=== PATIENT | female | born 1930 | race Caucasian/White ===

== ENCOUNTER 2017-10-24 11:50 | Outpatient (CLI) | payer MEDICARE, OTHER | END 2017-10-24 11:51 | disposition home or self-care (01) | LOC: BICMAMMO 11:50 | PROVIDERS: ATTEND Family Medicine | DX: Z12.31 Encounter for screening mammogram for malignant neoplasm of breast (principal); Z80.3 Family history of malignant neoplasm of breast | CPT/HCPCS: 77063 ==

== ENCOUNTER 2018-02-16 10:46 | Outpatient (CLI) | payer MEDICARE, OTHER ==
--- NOTE | 2018-02-16 14:18 | ULT ---
COMPLETE ABDOMEN ULTRASOUND: INDICATIONS: Epigastric abdominal pain and gas. COMPARISON: CT abdomen and pelvis dated 02/11/2010. FINDINGS: There is a 7.5 cm cyst involving the posterior right hepatic lobe, which is stable to the prior exam. The gallbladder demonstrates multiple nonshadowing, echogenic, nonmobile foci within the lumen, suspi cious for multiple polyps. One of the most prominent is seen off the anterior wall of the gallbladde r body, measuring 7 mm. The common bile duct measures 5 mm. No sonographic Dickinson sign is reported. The right kidney measures 8.3 x 4.4 x 4.7 cm. The left kidney measures 9.2 x 6.3 x 4.9 cm. The visualized aspects of the pancreas are unremarkable. IMPRESSION: 1. Multiple small polyps suspected involving the gallbladder. One of the more prominent is seen jr suring 7 mm, along the anterior gallbladder wall. Some of the suspected polyps could also be reflect ehsan of adherent debris. There is no sonographic evidence of acute cholecystitis. With the prominenc e of the gallbladder polyps, would recommend a general surgery consultation for possible elective cho lecystectomy. 2. Stable right hepatic lobe. POS: [facility]
== END 2018-02-16 10:47 | disposition home or self-care (01) ==
LOC: ULT 10:46
PROVIDERS: ATTEND Family Medicine
DX: R10.13 Epigastric pain (principal)
CPT/HCPCS: 76700

== ENCOUNTER 2018-03-07 10:31 | Inpatient (IN) | payer MEDICARE, OTHER ==
[2018-03-06 13:07] VITALS: BMI 25.8
[2018-03-07] MEDS ORDERED: Ketorolac Tromethamine 30 MG/ML VIAL IVP PRN ×2 (12:08)
[2018-03-07] MEDS ORDERED: Promethazine HCl 25 MG/ML VIAL SLOW IVP PRN ×2 (12:08)
[2018-03-07] MEDS ORDERED: Ondansetron HCl/PF 4 MG/2 ML Vial IVP PRN ×3 (12:08→16:19)
[2018-03-07] MEDS ORDERED: Promethazine HCl 25 MG/ML VIAL ONE (12:38)
[2018-03-07] MEDS ORDERED: Pantoprazole 40 MG VIAL IVP SCH ×2 (14:15)
[2018-03-07 15:11] LABS: #Eosinphils 0.4 thou/uL (0.0-0.7); #Lymphocytes 1.4 thou/uL (1.20-3.40); #Monocytes 0.6 thou/uL (0.11-0.59); #Neutrophils 2.8 thou/uL (1.40-6.50); %Basophils 0.8 % (0.0-1.0); %Eosinophils 8.5 % (0.0-10.0); %Neutrophils 53.7 % (42.0-75.0); Hemoglobin 11.6 g/dL (12.0-16.0); Mean Corpuscular Hemoglobin 33.7 pg (27.0-31.0); Mean Platelet Volume 6.9 fL (7.4-10.4); Platelet Count 251 thou/uL (130-400); RBC Distribution Width 14.8 % (11.5-14.5); Red Blood Cell (RBC) Count 3.44 mill/uL (4.20-5.40); White Blood Cell (WBC) Count 5.2 thou/uL (4.8-10.8)
[2018-03-07 15:28] LABS: ALT (SGPT) 20 U/L (8-55); AST (SGOT) 23 U/L (5-34); Albumin 2.9 g/dL (3.4-4.8); Alkaline Phosphatase 54 U/L (40-150); Anion Gap 8 mmol/L (10-20); BUN (Urea Nitrogen) 20 mg/dL (9.8-20.1); Bilirubin, Total 0.3 mg/dL (0.2-1.2); Calc. Creatinine Clearance 66 mL/min (70-130); Calcium 8.7 mg/dL (7.8-10.44); Carbon Dioxide 27 mmol/L (23-31); Chloride 109 mmol/L (98-107); Estimated GFR-MDRD 75; Globulin 2.4 g/dL (2.4-3.5); Glucose 94 mg/dL (83-110); Potassium 3.8 mmol/L (3.5-5.1); Protein, Total 5.3 g/dL (6.0-8.3); Sodium 140 mmol/L (136-145)
[2018-03-07] MEDS ORDERED: ISOVUE-370 76%-LOCM 1 ML ONE (16:11)
[2018-03-07] MEDS ORDERED: Milk Of Magnesia 30 ML UDCUP PO PRN (16:19)
[2018-03-07] MEDS ORDERED: HYDROcodone/Acetaminophen 5/325 mg Tablet PO PRN (16:19)
[2018-03-07] MEDS ORDERED: Acetaminophen 325 MG TAB PO PRN (16:19)
[2018-03-07] MEDS: Sodium Chloride 0.9% 1,000 ML IV SCH (16:54)
[2018-03-07] MEDS ORDERED: PROPOFOL 200 MG/20 ML VIAL ONE (16:56)
[2018-03-07] MEDS ORDERED: Lidocaine 1% PF 5 ML VIAL ONE (16:56)
--- NOTE | 2018-03-07 17:17 | HP ---
DATE OF ADMISSION: 03/07/2018 CHIEF COMPLAINT: Gassy abdomen. HISTORY OF PRESENT ILLNESS: This is an 87-year-old elderly white female living with her in h usual state of health, but for the past 3 months she has been suffering with a gassy distention of her abdomen associated with large gas, belching and nausea. She initially went to her primary care physician who started her on Zantac which did relieve her abdominal pain a little bit and gas was als o relieved. But since her appetite was getting worse and she is getting more and more nauseous with bloated abdomen, she went back to her primary care physician who at this time thought it could be gal lbladder disease so he ordered an ultrasound of the abdomen which showed evidence of a possible mass in the abdomen, also possible gastric outlet obstruction. He referred the patient to Gastroenterolog y, Dr. Andersen who decided to scope the patient today. When patient had an EGD, there was an evidenc e of a mass in the gastric mucosa which was biopsied and patient was admitted for further evaluation. The patient was ordered a CT of the abdomen and pelvis and Hospitalist was asked to admit this maria alejandra ent for further monitoring. The patient was seen in the floor. She was alert and oriented, not appe ars to be in acute distress. Discussed with the daughter at the bedside. She denied having any ches t pain. She does have some nausea, but no vomiting, no diarrhea. She does have constipation. The l ast bowel movement was 2 days ago. 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 PAST MEDICAL HISTORY: 1. Hypertension. 2. Hypothyroidism secondary to thyroidectomy. 3. History of parotid gland cancer. PAST SURGICAL HISTORY: 1. Parotid gland removal. 2. Thyroidectomy. 3. Cataract removal and glaucoma surgery. SOCIAL HISTORY: The patient is a nonsmoker. No history of alcohol, no history of illicit drug use. She lives with her at home. Otherwise, in good health and she is pretty independent. FAMILY HISTORY: The patient has significant family history of cancers in the family, her sister and her niece, but none of them are gastrointestinal according to her, which is more of leukemia the fami ly history she has. REVIEW OF SYSTEMS: All 12 systems reviewed with the patient thoroughly and found to be negative at t his time except the ones described in HPI. The following complete review of systems was negative, un less otherwise mentioned in the HPI or below: Constitutional: Weight loss or gain, sense of well-being, ability to conduct usual activities, exerc ise tolerance. Skin/Breast: Rash, itching, changes in hair growth or loss, nail changes, breast lumps, tenderness, swelling, nipple discharge. Eyes: Vision, double vision, tearing, blind spots, pain. ENT/Mouth: Headaches (location, time of onset, duration, precipitating factors), vertigo, lightheade dness, injury. Vision, double vision, tearing, blind spots, pain, nose bleeding, colds, obstruction, discharge, dental difficulties, gingival bleeding, dentures, neck stiffness, pain, tenderness, masses in thyroid or other areas Cardiovascular: Precordial pain, substernal distress, palpitations, syncope, dyspnea on exertion, or thopnea, nocturnal paroxysmal dyspnea, edema, cyanosis, hypertension, heart murmurs, varicosities, ph lebitis, claudication. Respiratory: Pain, shortness of breath, wheezing, stridor, cough, hemoptysis, fever or night sweats Gastrointestinal: Poor appetite, dysphagia, indigestion, abdominal pain, heartburn, eructation, naus ea, vomiting, hematemesis, jaundice, constipation, or diarrhea, abnormal stools (carlos alberto-colored, tarry, bloody, greasy, foul smelling), flatulence, hemorrhoids, recent changes in bowel habits. Genitourinary: Urgency, frequency, dysuria, nocturia, hematuria, polyuria, oliguria, unusual (or roque nge in) color of urine, stones, hesitancy, change in size of stream, dribbling, acute retention or in continence, libido, potency. Musculoskeletal: Pain, swelling, redness or heat of muscles or joints, limitation, of motion, muscul ar weakness, atrophy, cramps. Neurologic/Psychiatric: Convulsions, paralyses, tremor, incoordination, paraesthesias, difficulties with memory of speech, sensory or motor disturbances, or muscular coordination (ataxia, tremor), emot ional problems, anxiety, depression, previous psychiatric care, unusual perceptions, hallucinations. Allergy/Immunologic: Skin rash, anemia, bleeding tendency, polydipsia, polyuria, intolerance to heat or cold. ALLERGIES: No known drug allergies. HOME MEDICATIONS: Cholecalciferol, aspirin 81 mg p.o. daily, amlodipine/benazepril 5/10 mg tablet da ariana, atenolol 50 mg p.o. daily, atorvastatin 10 mg p.o. daily, levothyroxine 112 mcg daily, ranitidin e 150 mg p.o. b.i.d. and multivitamin. PHYSICAL EXAMINATION: VITAL SIGNS: Blood pressure 163/79, heart rate is 60, respirations 18, saturation 99%. GENERAL: The patient is moderately built, moderately nourished, does not appears to be in acute dist ress at this time. She is alert and oriented x3. HEENT: Atraumatic, normocephalic, PERRLA. Extraocular movement intact. Oral mucosa is pink and megan st. CARDIOVASCULAR: S1, S2 normal. No murmurs, rubs or gallops. LUNGS: Bilateral air entry was equal. No wheezing, no crackles. ABDOMEN: Soft, nontender, no guarding, no rebound tenderness. Bowel sounds are normal. MUSCULOSKELETAL: No calf tenderness. No pedal edema. No tenderness. No joint swelling. SKIN: No cyanosis, no erythema, no rash, no pallor. CENTRAL NERVOUS SYSTEM: Cranial nerve examination II-XII intact. No focal deficits are noted. PSYCHIATRIC: No signs of suicidal ideation and no signs of cari. NECK: No thyromegaly, no lymphadenopathy, no JVD was noted. LYMPHATICS: No evidence of any generalized lymphadenopathy was noted. LABORATORY DATA: Sodium 140, potassium 3.8, chloride 109, bicarbonate is 27, BUN is 20, creatinine 0 .73. Carcinoembryonic antigen is 1.0. WBC 5.2, hemoglobin 11.6, hematocrit 35.2, platelets are 251. ASSESSMENT AND PLAN: 1. Acute gastric outlet obstruction. 2. Dyspepsia. 3. Moderate dehydration. 4. Uncontrolled hypertension. 5. Hyperlipidemia. 6. Gastroesophageal reflux disease. PLAN: 1. Plan is to closely monitor this patient and follow with GI recommendations. At this time, we abigail l wait for the biopsies to be back. The patient has suspicion for GI malignancy. We will wait for C T of the abdomen and pelvis today. 2. Carcinoembryonic antigen was normal. 3. Patient has moderate dehydration. We will start the patient on normal saline 100 mL hour. We wi ll closely monitor for good urine output. 4. The patient has history of hypertension, poorly controlled at this time. We will restart the pat ient's home medications. Most likely the blood pressures could be related to anxiety from unknown di agnosis at this time. 5. The patient has hyperlipidemia. We will restart the patient's home medications with atorvastatin . 6. The patient has hypothyroidism. We will restart the patient on home medications. 7. Deep venous thrombosis prophylaxis, Lovenox 40 mg subcu daily. I spent 75 minutes on this patient.
--- NOTE | 2018-03-07 18:30 | CT ---
ABDOMEN AND PELVIC CT SCAN WITH IV CONTRAST: 03/07/18 HISTORY: 87-year-old female with history of abdominal pain for the last three months with history of gastric m ass. There is some linear parenchymal changes in the posterior lung bases, evidence for some subsegme ntal atelectasis or positional change. Multiple liver cysts up to 7.2 cm in the right lobe, stable fr om prior 02/11/10 study. There is a large constricting mass in the antrum of the stomach with marked gastric wall thickening u p to 1.7 cm. Certainly malignancy must be excluded. The gallbladder, pancreas and spleen appear unrem arkable. Stable left adrenal adenoma and right adrenal fullness unchanged from the prior study. 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 Small bilateral renal cysts, No evidence for significant omar nopathy. There is one borderline sized aortocaval node up to 0.6 cm in short axis. A normal appearing appendix. Sigmoid colon diverticulosis without acute diverticulitis. Small amount of cul-de-sac flui d. IMPRESSION: Gastric antral mass with marked wall thickening, malignancy cannot be excluded. Stable liver cysts wi th stable appearing adrenal adenoma and right kidney angiomyolipoma with small bilateral renal cysts. One borderline sized aortocaval node with a short axis of approximately 0.6 cm. POS: [facility]
--- NOTE | 2018-03-07 19:29 | OP ---
PREPROCEDURE DIAGNOSES: 1. Several months of epigastric pressure discomfort. She describes as gas after eating with mild an emia of hemoglobin 10, positive H. pylori, early satiety, anorexia. 2. She has had a gallbladder ultrasound that showed some 7 mm nodules in the gallbladder. POSTPROCEDURE DIAGNOSES: 1. Normal esophagus. 2. Mild amount of retained gastric contents. 3. Infiltrating mass in the antrum with partial gastric outlet obstruction. Multiple biopsies obtai abdoul sent for regular histology as well as specimen sent in saline in case lymphoma markers are needed . 4. The duodenal bulb is normal beyond the mass as is the second and third part of the duodenum. 5. Retroflex views show mass encroaching on the lesser curve. RECOMMENDATIONS: Admission to the hospital, CAT scan evaluation. She is not eating well and continu es to lose weight. Await histopathology. Consider oncologic and surgical consults once pathology and CAT scan obtained. ANESTHESIA: TIVA. PROCEDURE IN DETAIL: The patient was informed of the risks, benefits, possible complications of endo scopy and perforation, bleeding, reaction to medication and aspiration, informed consent was obtained . The patient was brought to endoscopy suite where she was sedated in gradual fashion. Once she was comfortable, a bite block was placed in incisural orifice. The esophagus was normal. The stomach w as entered and found to have a little bit of retained content. This was suctioned away to the best o f our ability. Retroflexed views revealed normal GE junction ____. Forward views of the antrum was distorted with infiltrating like mass with some ulceration causing partial gastric outlet obstruction , deformation of the prepyloric antrum. Multiple biopsies were obtained, this is somewhat friable an d sent for both a regular histology and also lymphoma markers. The duodenal bulb was normal. Bringi ng the scope back it seems to advance on the gastric wall up along to the lesser curve in incisural r egion. The scope was removed. The patient tolerated the procedure well and no complications.
[2018-03-07] MEDS ORDERED: Non-Formulary Item 1 EACH (Ranitidine Hcl [Ranitidine Hcl] 150 MG) PO SCH ×2 (21:00)
[2018-03-07] MEDS: Docusate 100 MG CAP PO SCH (21:45)
[2018-03-07] MEDS: Famotidine 20 MG TAB PO SCH (21:45)
[2018-03-08] MEDS: Sodium Chloride 0.9% 1,000 ML IV SCH ×2 (02:50→12:32)
[2018-03-08 04:23] LABS: #Basophils 0.1 thou/uL (0.0-0.2); #Eosinphils 0.6 thou/uL (0.0-0.7); #Lymphocytes 1.5 thou/uL (1.20-3.40); #Monocytes 0.7 thou/uL (0.11-0.59); #Neutrophils 2.6 thou/uL (1.40-6.50); %Basophils 1.2 % (0.0-1.0); %Eosinophils 10.3 % (0.0-10.0); %Lymphocytes 26.9 % (21.0-51.0); %Monocytes 13.1 % (0.0-10.0); %Neutrophils 48.4 % (42.0-75.0); Hemoglobin 10.1 g/dL (12.0-16.0); Mean Corpuscular HGB CONC 33.9 g/dL (32.0-36.0); Mean Corpuscular Hemoglobin 34.6 pg (27.0-31.0); Platelet Count 232 thou/uL (130-400); RBC Distribution Width 14.8 % (11.5-14.5); Red Blood Cell (RBC) Count 2.91 mill/uL (4.20-5.40); White Blood Cell (WBC) Count 5.4 thou/uL (4.8-10.8)
[2018-03-08 04:34] LABS: Anion Gap 6 mmol/L (10-20); BUN (Urea Nitrogen) 15 mg/dL (9.8-20.1); Calc. Creatinine Clearance 68 mL/min (70-130); Calcium 8.3 mg/dL (7.8-10.44); Carbon Dioxide 26 mmol/L (23-31); Chloride 110 mmol/L (98-107); Estimated GFR-MDRD 80; Glucose 100 mg/dL (83-110); Potassium 3.6 mmol/L (3.5-5.1); Sodium 138 mmol/L (136-145)
[2018-03-08] MEDS ORDERED: Levothyroxine Sodium 112 MCG TAB PO SCH (06:00)
[2018-03-08] MEDS ORDERED: Atorvastatin Calcium 10 MG TAB PO SCH (09:00)
[2018-03-08] MEDS ORDERED: Enoxaparin Sodium 40 MG/0.4 ML SYRINGE SC SCH (09:00)
[2018-03-08] MEDS ORDERED: Multivitamin W/ Minerals 1 TAB PO SCH (09:00)
[2018-03-08] MEDS ORDERED: Atenolol 50 MG TAB PO SCH (09:00)
[2018-03-08] MEDS ORDERED: Pantoprazole 40 MG VIAL IVP SCH ×2 (09:00)
[2018-03-08] MEDS ORDERED: Amlodipine 5 mg/Benazepril 10 mg CAP PO SCH (09:00)
[2018-03-08] MEDS: Famotidine 20 MG TAB PO SCH (09:18)
[2018-03-08] MEDS: Docusate 100 MG CAP PO SCH (09:18)
[2018-03-08 11:12] LABS: Bilirubin Negative (Negative); Blood, Urine Negative (Negative); Clarity CLEAR (Clear); Glucose, Urine (Dipstick) Negative (Negative); Leukocyte Negative (Negative); Nitrite Negative (Negative); Protein, Urine (Dipstick) Negative (Neg-Trace); Specific Gravity, Urine 1.015 (1.002-1.036)
[2018-03-08 11:15] LABS: Bacteria/HPF None Seen HPF (None Seen); Hyaline Casts/LPF 0-3 HYALINE CAST LPF (0-3 Hyaline); Pathc Cast-AUWi Flag 0.58 (0-2.49); RBC/HPF 0-3 HPF (0-3); Squamous Epithelial None Seen HPF (0-3); WBC/HPF 0-3 HPF (0-3)
[2018-03-08 12:33] VITALS: BP 142/84; TEMP 97.4
[2018-03-08 12:58] LABS: Iron 55 ug/dL (50-170); Iron Binding Capacity, Total 319 mcg/dL (265-497)
--- NOTE | 2018-03-09 02:28 | DIS ---
Ms. Issa is feeling well. She is tolerating full liquids. She wants to go home; her pathology re port is not back. Her CAT scan showed a mass in the antrum of the stomach with no obvious metastatic disease. She has been seen by General Surgery and is awaiting pathology results. PHYSICAL EXAMINATION: VITAL SIGNS: Stable. GENERAL: Alert and oriented. ABDOMEN: Nontender. LABORATORY DATA: 1. Gastric antral mass on endoscopy, concerning for malignancy, biopsies obtained, lymphoma markers sent, likely causing some partial gastric outlet obstruction. As she is able to maintain hydration, she would like to go home. 2. CAT scan shows above-noted thickening of the antral wall. There was also 1 borderline-sized aort ocaval lymph node, short axis, of 0.6 cm. Pathology on the biopsies pending. 3. Electrolytes are normal. 4. Hemoglobin is stable at 10.1. ASSESSMENT: Gastric antral tumor mass, pathology pending, and it is causing partial gastric outlet o bstruction. PLAN: She will go home to follow up on the pathology. Based on these results, we would likely refer to Oncology. Her daughters understand this. We will hopefully have the biopsies back tomorrow. I offered further stay here and to complete workup for possible preoperative evaluation as well, but toñito rogel wants to go home. I recommend she use Ensure t.i.d. Continue on a PPI. I have her phone number t o call her once we get the biopsies back.
--- NOTE | 2018-03-09 07:40 | PDOC.PN ---
- Subjective Encounter Start Date: 03/08/18 Encounter Start Time: 15:00 Patient is seen today, alert and oriented. She is waiting for GI to see her for further plans. She is alert and oriented. Wants to go home. - Objective Resuscitation Status: Resuscitation Status FULL:Full Resuscitation MAR Reviewed: Yes Vital Signs & Weight: Weight Weight 165 lb I&O: 03/08/18 03/09/18 03/10/18 06:59 06:59 06:59 Intake Total 610 Balance 610 Result Diagrams: 03/08/18 03:15 03/08/18 03:15 Radiology Reviewed by me: Yes Phys Exam - Physical Examination HEENT: PERRLA, moist MMs Neck: no nodes, no JVD Respiratory: no wheezing, no rales Cardiovascular: RRR, no significant murmur Gastrointestinal: soft, non-tender Musculoskeletal: no edema, pulses present Neurological: non-focal, normal sensation Lymphatic: no nodes Dx/Plan (1) Intractable nausea and vomiting Code(s): R11.2 - NAUSEA WITH VOMITING, UNSPECIFIED Status: Acute Comment: Resolved now, with zofran. (2) Dehydration, moderate Code(s): E86.0 - DEHYDRATION Status: Acute Comment: Pt is on IV hydation.Stbale. Well hydrated now. (3) Gastric mass Code(s): K31.9 - DISEASE OF STOMACH AND DUODENUM, UNSPECIFIED Status: Acute Comment: CT abdomen showed no invasion to Liver or intraabominal extension of tumors. rest of the plan per GI, pending Biopsy. - Plan cont current plan of care, plan discussed w/ family, PT/OT, [employer] and crm, incentive spirometry, DVT proph w/heparin * . - Discharge Day Encounter end time: 15:35 Review of Systems - Review of Systems Eyes: negative: Pain, Vision Change, Conjunctivae Inflammation, Eyelid Inflammation, Redness, Other ENT: negative: Ear Pain, Ear Discharge, Nose Pain, Nose Discharge, Nose Congestion, Mouth Pain, Mouth Swelling, Throat Pain, Throat Swelling, Other Respiratory: negative: Cough, Dry, Shortness of Breath, Hemoptysis, SOB with Excertion, Pleuritic Pain, Sputum, Wheezing Cardiovascular: negative: chest pain, palpitations, orthopnea, paroxysmal nocturnal dyspnea, edema, light headedness, other Gastrointestinal: negative: Nausea, Vomiting, Abdominal Pain, Diarrhea, Constipation, Melena, Hematochezia, Other Genitourinary: negative: Dysuria, Frequency, Incontinence, Hematuria, Retention , Other Musculoskeletal: negative: Neck Pain, Shoulder Pain, Arm Pain, Back Pain, Hand Pain, Leg Pain, Foot Pain, Other Skin: negative: Rash, Lesions, Paulie, Bruising, Other - Medications/Allergies Allergies/Adverse Reactions: Allergies Allergy/AdvReac Type Severity Reaction Status Date / Time No Known Allergies Allergy Unverified 03/06/18 13:07
== END 2018-03-08 15:30 | disposition home or self-care (01) | DRG 382 ==
LOC: SDC 10:31 → SURG A 14:02
PROVIDERS: ADMIT Internal Medicine Gastroenterology; ATTEND Internal Medicine Gastroenterology
PROC: 0DB78ZX Excision of Stomach, Pylorus, Via Natural or Artificial Opening Endoscopic, Diagnostic (ICD-10-PCS; principal; 2018-03-07)
DX: K31.1 Adult hypertrophic pyloric stenosis (principal); E86.0 Dehydration; E03.9 Hypothyroidism, unspecified; I10 Essential (primary) hypertension; Z85.89 Personal history of malignant neoplasm of other organs and systems; Z79.82 Long term (current) use of aspirin; E78.5 Hyperlipidemia, unspecified; K21.9 Gastro-esophageal reflux disease without esophagitis; E78.00 Pure hypercholesterolemia, unspecified
CPT/HCPCS: 36415; 74177; 80048; 80053; 81001; 82274; 82378; 83540; 83550; 85025; 88184; 88305; 88341; 88342; C9113; J1650; J2001; J2550; J2704

== ENCOUNTER 2018-03-23 07:27 | Outpatient (CLI) | payer MEDICARE, OTHER ==
--- NOTE | 2018-03-23 10:45 | PET ---
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 COMPARISON: None. TECHNIQUE: IV injection F-18 Fluorodeoxyglucose (FDG) dose: 11.9 mCi. PET and attenuation-correction CT performed from skull base to proximal thighs. FINDINGS: SUV (standard uptake value) numbers given are maximum SUV's: Circumferential mural thickening of the gastric antrum has diffusely increased uptake with SUV of 14. 1. No evidence of FDG-avid lymph nodes in the abdominal cavity. The 0.6 cm aortocaval lymph node ment ioned on the report of the CT of 03/07/18 is not FDG-avid. No abnormally FDG-avid lesions in the pelv is, chest, or neck. Large right hepatic cyst. Left adrenal adenoma. IMPRESSION: The gastric adenocarcinoma involves the gastric antrum, with no invasion of adjacent structures, meta static lymphadenopathy, or distant metastasis. From an imaging standpoint, the T component could rang e from T1a to T3, N0, M0; Stage IIA or IIB. ARTIS Howe POS: [facility]
== END 2018-03-23 07:28 | disposition home or self-care (01) ==
LOC: PET 07:27
PROVIDERS: ATTEND Internal Medicine Hematology & Oncology
DX: C16.9 Malignant neoplasm of stomach, unspecified (principal); C16.3 Malignant neoplasm of pyloric antrum; R59.1 Generalized enlarged lymph nodes
CPT/HCPCS: 78815; A9552

== ENCOUNTER 2018-03-29 10:28 | Outpatient (CLI) | payer MEDICARE, OTHER ==
[2018-03-29 11:02] LABS: #Basophils 0.1 thou/uL (0.0-0.2); #Eosinphils 0.5 thou/uL (0.0-0.7); #Lymphocytes 1.4 thou/uL (1.20-3.40); #Monocytes 0.7 thou/uL (0.11-0.59); %Lymphocytes 21.7 % (21.0-51.0); %Monocytes 10.4 % (0.0-10.0); %Neutrophils 59.9 % (42.0-75.0); Hemoglobin 11.5 g/dL (12.0-16.0); Mean Corpuscular Hemoglobin 34.7 pg (27.0-31.0); Mean Platelet Volume 6.8 fL (7.4-10.4); Platelet Count 285 thou/uL (130-400); Red Blood Cell (RBC) Count 3.31 mill/uL (4.20-5.40); White Blood Cell (WBC) Count 6.6 thou/uL (4.8-10.8)
[2018-03-29 11:09] LABS: INR-International Normal Ratio 1.1; PTT 28.5 SEC (22.9-36.1); Prothrombin Time 14.7 SEC (12.0-14.7)
[2018-03-29 11:21] LABS: ALT (SGPT) 19 U/L (8-55); AST (SGOT) 25 U/L (5-34); Albumin 3.2 g/dL (3.4-4.8); Alkaline Phosphatase 51 U/L (40-150); Anion Gap 10 mmol/L (10-20); BUN (Urea Nitrogen) 19 mg/dL (9.8-20.1); Bilirubin, Total 0.4 mg/dL (0.2-1.2); Calc. Creatinine Clearance 0 mL/min (70-130); Calcium 8.7 mg/dL (7.8-10.44); Carbon Dioxide 27 mmol/L (23-31); Chloride 102 mmol/L (98-107); Estimated GFR-MDRD 67; Globulin 2.4 g/dL (2.4-3.5); Glucose 111 mg/dL (83-110); Potassium 4.1 mmol/L (3.5-5.1); Protein, Total 5.6 g/dL (6.0-8.3); Sodium 135 mmol/L (136-145)
== END 2018-03-29 10:29 | disposition home or self-care (01) ==
LOC: LABBT 10:28
PROVIDERS: ATTEND Internal Medicine Cardiovascular Disease
DX: Z01.818 Encounter for other preprocedural examination (principal); I35.0 Nonrheumatic aortic (valve) stenosis
CPT/HCPCS: 80053; 85025; 85610; 85730; 93005; 93010

== ENCOUNTER 2018-03-31 05:57 | Day surgery (SDC) | payer MEDICARE, OTHER ==
[2018-03-29 10:46] VITALS: BMI 24.7
[2018-03-31] MEDS ORDERED: Diazepam 5 MG TAB ONE (06:20)
[2018-03-31] MEDS ORDERED: Lidocaine 1% (PF) 30 ML VIAL ONE (06:37)
[2018-03-31] MEDS ORDERED: Iopamidol 370 76% 100 ML VIAL ONE (06:48)
== END 2018-03-31 12:50 | disposition home or self-care (01) ==
LOC: CCL 05:57
PROVIDERS: ATTEND Internal Medicine Cardiovascular Disease
PROC: 4A023N8 Measurement of Cardiac Sampling and Pressure, Bilateral, Percutaneous Approach (ICD-10-PCS; principal; 2018-03-31)
DX: I35.0 Nonrheumatic aortic (valve) stenosis (principal); I25.10 Atherosclerotic heart disease of native coronary artery without angina pectoris; E78.5 Hyperlipidemia, unspecified; I10 Essential (primary) hypertension; C16.9 Malignant neoplasm of stomach, unspecified; E89.0 Postprocedural hypothyroidism; E66.9 Obesity, unspecified; Z68.24 Body mass index [BMI] 24.0-24.9, adult
CPT/HCPCS: 76942; 93460; 93561; 93567; C1769; J1644; J2001

== ENCOUNTER 2018-05-13 18:28 | Emergency (ER) | payer MEDICARE, OTHER | END 2018-05-13 21:17 | disposition home or self-care (01) | LOC: ERS 18:28 | DX: L03.113 Cellulitis of right upper limb (principal); L03.011 Cellulitis of right finger; I10 Essential (primary) hypertension; E03.9 Hypothyroidism, unspecified; E78.5 Hyperlipidemia, unspecified; Z79.899 Other long term (current) drug therapy; Z79.82 Long term (current) use of aspirin | CPT/HCPCS: 99283 ==

== ENCOUNTER 2018-06-16 15:06 | Outpatient (CLI) | payer MEDICARE, OTHER | END 2018-06-16 15:07 | disposition home or self-care (01) | LOC: BICCT 15:06 | PROVIDERS: ATTEND Nurse Practitioner Adult Health | DX: C16.3 Malignant neoplasm of pyloric antrum (principal); M21.371 Foot drop, right foot; M47.896 Other spondylosis, lumbar region; M41.9 Scoliosis, unspecified; N28.9 Disorder of kidney and ureter, unspecified; K76.9 Liver disease, unspecified; E27.9 Disorder of adrenal gland, unspecified; K59.00 Constipation, unspecified | CPT/HCPCS: 72131 ==

== ENCOUNTER 2018-07-14 12:56 | Day surgery (SDC) | payer MEDICARE, OTHER ==
[2018-07-13 08:14] VITALS: BMI 22.8
[2018-07-14] MEDS ORDERED: Lidocaine 2% 10 ML INJ ONE (13:24)
[2018-07-14] MEDS ORDERED: Bupivacaine/Epinephrine 0.25% 30 ML VIAL ONE (13:24)
[2018-07-14] MEDS ORDERED: Fentanyl 100 MCG/2 ML VIAL ONE ×2 (13:39→15:08)
[2018-07-14] MEDS ORDERED: CEFAZOLIN/Water 2 GM/20 ML SYRINGE ONE (13:53)
--- NOTE | 2018-07-14 14:48 | OP ---
DATE OF PROCEDURE: 07/14/2018 PREOPERATIVE DIAGNOSIS: Gastric adenocarcinoma. POSTOPERATIVE DIAGNOSIS: Gastric adenocarcinoma. PROCEDURE: Tunneled central line subcutaneous port (MediPort, CT injectable low profile). SURGEON: Dr. Piña. ANESTHESIA: General. ESTIMATED BLOOD LOSS: Minimal. COMPLICATIONS: None. SPECIMEN: None. FINDINGS: The tip of the catheter is at the atriocaval junction. TECHNIQUE: The patient is taken to the operating room and placed supine on the operating room table. After general anesthetic was obtained, bilateral neck and chest is prepped and draped in a sterile fashion. Local anesthetic infiltrated over the right internal jugular vein. Internal jugular vein c annulated using a 20 gauge finder needle followed by a Seldinger needle. Wire was passed into superi or vena cava under fluoroscopic guidance. A dilator and wire under fluoroscopic guidance. A 1 cm in cision made at the wire entrance site. A separate 3 cm is made in the right upper chest. Subcutaneo us pocket made below the lower incision. Tubing for the MediPort tunneled from an inferior to superi or incision. Introducer sheath was placed over the wire into the superior vena cava under fluoroscop y guidance. The dilator and wire removed from the sheath and the end of the catheter shredded into t he sheath and the sheath is peeled away. The tip of the catheter is at the atriocaval junction. Med iPort tubing was cut to fit the MediPort at the lower incision, connected to the MediPort, which is s ewn to the chest wall in the subcutaneous pocket using Prolene. MediPort flushes and draws blood wit hout difficulties flushed with a heparin flush. Wounds are irrigated and closed using 3-0 Vicryl, 4- 0 Monocryl, and Dermabond. The patient went to recovery in stable condition. All instrument counts, needle counts, lap counts were correct.
[2018-07-14] MEDS ORDERED: Lidocaine 1% PF 5 ML VIAL ONE (15:16)
[2018-07-14] MEDS ORDERED: PROPOFOL 200 MG/20 ML VIAL ONE (15:16)
[2018-07-14] MEDS ORDERED: Ondansetron HCl/PF 4 MG/2 ML Vial ONE (15:16)
--- NOTE | 2018-07-14 15:26 | RAD ---
PORTABLE CHEST 1 VIEW: Date: 07/14/18 Time: 1431 hours HISTORY: MediPort placement. FINDINGS/IMPRESSION: There is a right internal jugular Port-A-Cath with tip in the projection of the SVC. No pneumothorax is seen. POS: [facility]
[2018-07-14] MEDS ORDERED: HYDROcodone/Acetaminophen 5/325 mg Tablet ONE (16:19)
[2018-07-14] MEDS ORDERED: Sodium Chloride 0.9% 0 ML ONE (16:23)
== END 2018-07-14 16:40 | disposition home or self-care (01) ==
LOC: SDC 12:56
PROVIDERS: ATTEND Surgery
PROC: 0JH63WZ Insertion of Totally Implantable Vascular Access Device into Chest Subcutaneous Tissue and Fascia, Percutaneous Approach (ICD-10-PCS; principal; 2018-07-14)
DX: C16.9 Malignant neoplasm of stomach, unspecified (principal); C77.9 Secondary and unspecified malignant neoplasm of lymph node, unspecified; I10 Essential (primary) hypertension; E78.00 Pure hypercholesterolemia, unspecified; E89.0 Postprocedural hypothyroidism; Z79.02 Long term (current) use of antithrombotics/antiplatelets; Z79.82 Long term (current) use of aspirin; Z79.899 Other long term (current) drug therapy; Z88.5 Allergy status to narcotic agent; Z95.2 Presence of prosthetic heart valve; Z90.3 Acquired absence of stomach [part of]
CPT/HCPCS: 36561; 71045; 96374; C1788; J1642; J2001; J2405; J2704; J3010

== ENCOUNTER 2018-09-12 11:07 | Outpatient (CLI) | payer MEDICARE, OTHER ==
--- NOTE | 2018-09-12 15:46 | PET ---
RADIONUCLIDE PET SCAN WITH CT ATTENUATION CORRECTION IMAGING: HISTORY: Gastric adenocarcinoma. Restaging. COMPARISON: 03/23/18. FINDINGS: Physiologic uptake throughout the entire system and along each urinary tract. Muscular uptake about e ach shoulder. There are now postoperative changes of the stomach. The hypermetabolic activity on the previous study is no longer visible. No abnormal uptake is apparent within the liver. Photopenic defects are consis tent with liver cysts. No hypermetabolic lymph nodes are apparent. No abnormalities of the lungs. IMPRESSION: Surgical resection of the gastric adenocarcinoma. No evidence of recurrent or metastatic disease. POS: [facility]
== END 2018-09-12 11:08 | disposition home or self-care (01) ==
LOC: PET 11:07
PROVIDERS: ATTEND Internal Medicine Hematology & Oncology
DX: Z08 Encounter for follow-up examination after completed treatment for malignant neoplasm (principal); Z85.028 Personal history of other malignant neoplasm of stomach
CPT/HCPCS: 78815; A9552

== ENCOUNTER 2018-10-25 13:42 | Outpatient (CLI) | payer MEDICARE, OTHER | END 2018-10-25 13:43 | disposition home or self-care (01) | LOC: BICMAMMO 13:42 | PROVIDERS: ATTEND Family Medicine | DX: Z12.31 Encounter for screening mammogram for malignant neoplasm of breast (principal); R92.1 Mammographic calcification found on diagnostic imaging of breast | CPT/HCPCS: 77063; 77067 ==

== ENCOUNTER 2018-12-22 08:25 | Outpatient (CLI) | payer MEDICARE, OTHER ==
--- NOTE | 2018-12-22 11:14 | PET ---
RADIONUCLIDE PET SCAN WITH CT ATTENUATION CORRECTION: HISTORY: Malignant neoplasm of the body of the stomach. Restaging. COMPARISON: 09/12/18. FINDINGS: There is physiologic uptake of radiotracer throughout the enteric system and along each urinary tract . Postoperative changes of the stomach are apparent. Photopenic defects of the liver consistent with cysts. No hypermetabolic abnormalities. IMPRESSION: Stable exam. No scintigraphic evidence of recurrent or metastatic neoplasm. POS: [facility]
== END 2018-12-22 08:26 | disposition home or self-care (01) ==
LOC: PET 08:25
PROVIDERS: ATTEND Internal Medicine Hematology & Oncology
DX: C16.2 Malignant neoplasm of body of stomach (principal)
CPT/HCPCS: 78815; A9552

== ENCOUNTER 2019-07-09 09:35 | Outpatient (CLI) | payer MEDICARE, OTHER ==
[2019-07-09] MEDS ORDERED: ISOVUE-370 76%-LOCM 1 ML ONE (10:33)
--- NOTE | 2019-07-09 12:45 | CT ---
CT ABDOMEN WITH CONTRAST CT PELVIS WITH CONTRAST: DATE: 07/09/2019 HISTORY: 89-year-old female with malignant neoplasm of the stomach. Follow-up. Restaging. COMPARISON: Nondiagnostic attenuation correction CT for PET scan of 12/22/2018 CT abdomen and pelvis of 03/07/2018. TECHNIQUE: IV injection of iodinated contrast media: administered. Oral contrast media:Administered FINDINGS: On 03/07/2018, there was a large cyst in the right lobe of the liver measuring approximately 7.2 x 7.3 x 7.4 cm. On the PET scan of 12/22/2018, it had shrunk to approximately 3.5 x 3 cm. Currently, it measures 3.2 x 2.2 x 2.2 cm, and now appears to have slightly irregular margins. No other significant hepatic lesion. Scattered few tiny focal hypodensities are unchanged in the liver, too small to characterize. No convincing evidence of hepatic metastasis. No portal vein thrombosis. Suture line ar ound stomach. Partial distal gastrectomy, with anastomosis with bowel loop to the left of midline. Nonspecific mural thickening at the anastomosis. Diffusely very atrophic pancreas. Atherosclerosis wi thout aneurysm of abdominal aorta. Large volume of colonic stool. Lack of visceral fat. No evidence of retroperitoneal, maricruz hepatis, mesenteric, or iliac chain, lymphadenopathy. Small bilateral renal cysts. No hydronephrosis. No normal spleen. No small bowel dilation. Pelvic relaxation. No small bowel dilation. No ascites. Significant compression fractures of T12 and T11, apparently old, occurre d sometime after the 03/07/2018 CT. Mild interval shrinkage of bilateral adrenal nodules since 03/07/2018. Probably no significant change since 12/22/2018. IMPRESSION: 1. No convincing evidence of metastatic disease. 2. Continued interval shrinkage of the hepatic cyst in the right lobe hepatic segment 7.
== END 2019-07-09 09:36 | disposition home or self-care (01) ==
LOC: BICCT 09:35
PROVIDERS: ATTEND Internal Medicine Hematology & Oncology
DX: C16.2 Malignant neoplasm of body of stomach (principal); K76.89 Other specified diseases of liver
CPT/HCPCS: 74177; 82565; Q9966

== ENCOUNTER 2019-08-25 09:39 | Inpatient (IN) | payer MEDICARE, OTHER ==
[2019-08-25] MEDS ORDERED: Ondansetron PF 4 MG/2 ML Vial ONE (10:33)
[2019-08-25 10:45] LABS: Hemoglobin 12.2 g/dL (12.0-16.0); Mean Corpuscular HGB CONC 33.5 g/dL (32.0-36.0); Mean Corpuscular Hemoglobin 35.4 pg (27.0-31.0); Mean Platelet Volume 7.2 fL (7.4-10.4); Platelet Count 312 thou/uL (130-400); RBC Distribution Width 12.6 % (11.5-14.5); Red Blood Cell (RBC) Count 3.43 mill/uL (4.20-5.40)
[2019-08-25 11:04] LABS: Band 2 % (5-11); Lymphocytes 6 % (21-51); MDiff Complete? YES; Monocytes 22 % (0-10); Neutrophil 69 % (42-75); Ovalocytes MODERATE= 6-15 cells (100X) (0-1/hpf); Platelet Morphology Comment Appears Adequate; Reactive Lymphocytes 1 % (0-10); Vacuoles SLIGHT
[2019-08-25 11:33] LABS: CKMB 4.1 ng/mL (0-6.6)
[2019-08-25 11:50] LABS: ALT (SGPT) 10 U/L (8-55); AST (SGOT) 23 U/L (5-34); Albumin 4.2 g/dL (3.4-4.8); Alkaline Phosphatase 75 U/L (40-110); Anion Gap 15 mmol/L (10-20); BUN (Urea Nitrogen) 34 mg/dL (9.8-20.1); Bilirubin, Total 1.1 mg/dL (0.2-1.2); Calc. Creatinine Clearance 0 mL/min (70-130); Calcium 9.5 mg/dL (7.8-10.44); Carbon Dioxide 24 mmol/L (23-31); Chloride 92 mmol/L (98-107); Estimated GFR-MDRD 46; Globulin 2.9 g/dL (2.4-3.5); Glucose 116 mg/dL (83-110); Lipase Less than 4 U/L (8-78); Magnesium 2.1 mg/dL (1.6-2.6); Potassium 4.1 mmol/L (3.5-5.1); Protein, Total 7.1 g/dL (6.0-8.3); Sodium 127 mmol/L (136-145)
[2019-08-25] MEDS ORDERED: ISOVUE-370 76%-LOCM 1 ML ONE (13:07)
[2019-08-25] MEDS ORDERED: Iopamidol 370 76% 50 ML VIAL FS ONE (13:07)
--- NOTE | 2019-08-25 13:18 | CT ---
CT ABDOMEN AND PELVIS WITH IV CONTRAST 08/25/2019 CLINICAL INFORMATION: Abdominal pain. COMPARISON: 07/09/2019 Technique: Multiple contiguous axial CT images are obtained through the abdomen and pelvis with IV contrast. Cor onal reformatted images are provided. FINDINGS: Lower Chest: There is partial visualization of aortic valve replacement. Small bilateral pleural effu sions are seen with associated minimal passive atelectasis. Vessels: Vascular calcifications are again seen in the abdominal aorta and involving the iliac arteri es. Abdomen: Portal vein:Patent Gallbladder: Mildly distended. Liver: Subcentimeter too small to characterize hypodense lesions are seen in the right and left hepat ic lobes with stable larger hypodense lesion in the right hepatic lobe measuring 3.2 cm likely related to a hepatic cyst. Spleen: within normal limits. Pancreas: Atrophic Adrenals: There is nodular fullness of each adrenal gland which is similar to prior exam and similar to PET/CT exam on 09/12/2018. No FDG avidity was seen in the region of the adrenal glands bilaterally on the prior PET/CT exam. Kidneys: Small hypodense left renal lesion is again seen statistically likely representing a cyst wit h subcentimeter too small to characterize hypodense lesion right kidney. 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 Bowel: Loops of small bowel are mildly increased in diameter with loops of bowel measuring up to 3.1 cm. There is also distention of the colon with an irregular masslike area of thickening involving the transverse colon. Colon distal to this region is more decompressed and normal in caliber with col on proximal to this region of thickening demonstrating dilatation and is fluid-filled. The ascending colon measures approximately 8.4 cm in diameter. The area of colonic wall thickening is adj acent to area of postsurgical changes related to partial gastrectomy and gastroenteric anastomosis. Colonic diverticulosis is seen. Peritoneum: There is a small to moderate amount of intraperitoneal free fluid seen in the abdomen and pelvis. Mesentery and Retroperitoneum: No enlarged mesenteric or retroperitoneal lymph nodes. Abdominal Wall: Mild subcutaneous edema is present. A tiny fat-containing umbilical hernia is present . Pelvis: Reproductive Organs: No pelvic masses. Pelvis within normal limits. Bladder: within normal limits. Bones: There are burst fractures involving the T11 and T12 vertebral bodies also noted on the prior e xam on 07/09/2019. Multilevel degenerative changes are seen in the spine. No suspicious lytic or sclerotic osseous lesions are appreciated. IMPRESSION: 1. Focal area of colonic wall thickening with adjacent minimal inflammatory changes involving the tra nsverse colon. The colon proximal to this region is dilated and fluid-filled measuring up to 8.4 cm in diameter. Focal thickening may represent neoplastic process. Colonoscopy is recommended for furthe r evaluation. 2. Dilated loops of small bowel suggesting small bowel obstruction. The small bowel is diffusely dila cherelle up to the level of the ileocecal valve. 3. Small bilateral pleural effusions and small to moderate amount of ascites. 4. Colonic diverticulosis. 5. Postsurgical changes of the stomach with gastrojejunostomy present. 6. Nodular thickening of the bilateral adrenal glands. This was seen on prior PET CT scan examination as well as recent CT abdomen and pelvis on 07/09/2019. 7. Additional findings are as described above. 8. Above findings are were discussed with Dr. Mcginnis in the emergency department on 08/25/2019 at 1314 hours
[2019-08-25 16:07] LABS: Troponin I 0.047 ng/mL (< 0.028)
[2019-08-25] MEDS ORDERED: hydrALAZINE 20 MG/ML VIAL SLOW IVP PRN (18:43)
[2019-08-25] MEDS ORDERED: Morphine 4 MG/ML VIAL SLOW IVP PRN (18:43)
[2019-08-25] MEDS ORDERED: Sodium Chloride 0.9% 1,000 ML IV SCH (18:45)
[2019-08-25 18:51] LABS: Troponin I 0.064 ng/mL (< 0.028)
[2019-08-25] MEDS: Dextrose 5 % And 0.9 % NaCl 1,000 ML IV SCH (20:22)
--- NOTE | 2019-08-25 20:38 | RAD ---
SUPINE ABDOMEN: 08/25/19 INDICATIONS: Assessing NG tube placement. FINDINGS/IMPRESSION: NG tube has been placed. Tip overlies the left upper quadrant and would preside within the mid gastri c fundus. POS: OFF
[2019-08-25] MEDS: Famotidine/PF 20 mg/2ml Vial SLOW IVP SCH (21:20)
[2019-08-25] MEDS: Fleet Enema 133 ML BOT PR PRN ×2 (21:20→23:17)
[2019-08-25] MEDS: Ondansetron PF 4 MG/2 ML Vial IVP PRN (21:55)
--- NOTE | 2019-08-25 21:56 | HP ---
PRIMARY CARE PHYSICIAN: Dr. Fowler. CHIEF COMPLAINT: "I could not eat and my stomach is hurting." HISTORY OF PRESENT ILLNESS: Ms. Issa is a very pleasant 89-year-old female, who has a history of hypertension as well as gastric cancer. She says that she was in her usual state of health until a couple of days ago. She started noticing that she could not hardly eat and her stomach was hurting. She says the pain would come and go in waves and would become very intense and then suddenly get better. She also says that she was extremely nauseated, and would at times vomit. She says this started as a constipation and she thought that was the only problem until the abdominal pain started, which she says occurs all the way across her stomach. She denies any fevers, but has had some chills. Her last bowel movement was yesterday and it was normal. There was no blood, no diarrhea, and she denies any hematemesis. She says that this pain was so bad that she could not even sleep and as a result, she came to the ER for evaluation. In the ER, she had a CT scan of the abdomen and pelvis, which demonstrated a focal area of colonic wall thickening with some adjacent inflammatory changes and there was some focal thickening, which could represent a neoplastic process and some dilated loops of bowel suggesting a small bowel obstruction. REVIEW OF SYSTEMS: CONSTITUTIONAL: There has been no fevers, but she has had some chills. No night sweats. No weight loss. HEENT: No headaches, no dizziness. No visual changes. No sore throat or rhinorrhea. NECK: No neck pain, no adenopathy. PULMONARY: No hemoptysis. No cough. No wheezing. CARDIOVASCULAR: She did have a recent TAVR about a year ago for an aortic valve stenosis, but denies having any significant chest pain. No PND. No orthopnea. She says she can climb a flight of steps, but she has to be careful using a cane, but does not get any cardiac symptoms with this. GASTROINTESTINAL: As in history of present illness. GENITOURINARY: No urinary, frequency or hematuria. No hesitancy. MUSCULOSKELETAL: No muscle pains, weakness, or joint pains. NEUROLOGIC: No focal weakness or numbness. No seizures. PSYCHIATRIC: No symptoms of anxiety or depression. SKIN AND INTEGUMENT: No skin changes. No rash. 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 PAST SURGICAL HISTORY: She has had a partial gastrectomy and parotid gland removal as well as a thyroidectomy and cataract removed as well as a TAVR. ALLERGIES: NO KNOWN DRUG ALLERGIES, BUT SHE SAYS CODEINE MAKES HER WANT TO THROW UP. SOCIAL HISTORY: She is , has 2 children, in [place]. One of her daughters is her surrogate decision maker. She is a nonsmoker, nondrinker and she would like to be a full code. FAMILY HISTORY: Significant for breast cancer in her sister as well as leukemia. CURRENT MEDICATIONS: Include: 1. Lotrel 5/10 once daily. 2. Atenolol 50 mg daily. 3. Levothyroxine 150 mcg daily. 4. Lipitor 10 mg daily. 5. Centrum Silver once daily. 6. Caltrate plus vitamin D daily. 7. Plavix 75 mg daily. 8. Ferrous sulfate 325 mg daily. 9. Hydrochlorothiazide 12.5 mg daily. 10. Omeprazole 20 mg once daily. PHYSICAL EXAMINATION: GENERAL: She is alert and oriented. She appears to be in no distress, although she appears very anxious. She is well developed and well nourished. VITAL SIGNS: Blood pressure was 112/36, heart rate 71, respiratory rate of 20, and temperature is 97.9. HEENT: Her pupils are equal, round, and reactive. Extraocular muscles are intact. Sclerae anicteric. Throat, she has dry mucous membranes. No erythema. No exudates. NECK: No adenopathy, no bruits. LUNGS: Clear to auscultation. There is no wheezing, no rales, no rhonchi. CARDIOVASCULAR: She has a normal S1, S2. She does have a slight 2/6 systolic murmur over the lower left sternal border. ABDOMEN: Soft. She did have some mild diffuse tenderness. There is no rebound, no guarding. The bowel sounds are hypoactive. There is no evidence of any organomegaly. EXTREMITIES: There is no calf tenderness, no edema and no joint effusions. NEUROLOGIC: Her cranial nerves are intact. Muscle strength is 5/5 in both upper and lower extremities. SKIN AND INTEGUMENT: There are no skin changes, no rash, other than around her neck and there are some areas of hyperpigmentation and leathery skin changes. LABORATORY DATA: Sodium 127, potassium 4.1, chloride is 92, CO2 is 24, BUN of 34, creatinine 1.12, glucose is 116, magnesium 1.2. Troponin is less than 0.050. Lipase is less 4. White blood cell count is 6, hemoglobin 12.2, hematocrit is 36.3 and platelet count is 312. On the CT scan of the abdomen and pelvis, there was a focal area of colonic thickening and some mild inflammatory changes, which could represent a neoplastic process and there was some dilated loops of small bowel and some nodular thickening of both adrenal glands, which were similar findings on CT and abdomen on 07/09/2019. ASSESSMENT: This is a very pleasant 89-year-old female, who presents with abdominal pain as well as nausea and vomiting with CT evidence of small-bowel obstruction. 1. For small-bowel obstruction, she will be made n.p.o. and placed on IV hydration, IV antiemetics and medication for pain and we will likely need to place an NG tube and consult both General Surgery as well as Gastroenterology as she has recently seen her wheel shop supervisor. 2. Hyponatremia, this is likely related to volume depletion. Hopefully this should correct with IV hydration and if not then, we will check urine electrolytes and serum studies to further evaluate. 3. Hypertension. We will place her on p.r.n. medications for blood pressure. 4. The patient will be placed on both deep venous thrombosis and gastrointestinal prophylaxis. Job ID: [id number]
--- NOTE | 2019-08-26 01:56 | CON ---
DATE OF CONSULTATION: 08/25/2019 REQUESTING PHYSICIAN: Dr. Michael Lutz. HISTORY OF PRESENT ILLNESS: Ms. Issa is an 89-year-old woman with history of metastatic gastric carcinoma, apparently a stage III disease for which the patient underwent partial gastrectomy with gastrojejunostomy reconstruction in 2018 followed by chemoradiation therapy. The patient has had serial PET scan, last of which was in December of 2018 and all of which were unremarkable for any evidence of recurrent disease. She has maintained all her followup appointments with her surgeon, Oncology and Gastroenterology and all surveillance studies were reported to the patient as unremarkable. The patient presented to the emergency department today given a complaint of a 2-day history of abdominal pain associated with nausea and nonbilious emesis. She has lost approximately 70 pounds since her gastrectomy in 2018. She denies any worsening fatigue or anorexia. Last bowel movement was yesterday, although she had to take stool softeners to induce. She however did have a decent bowel movement 2 days ago. The patient denies any fevers or chills. PAST MEDICAL HISTORY: Pertinent for essential hypertension, hypothyroidism, parotid gland cancer and gastric carcinoma. PAST SURGICAL HISTORY: Surgical history is pertinent for partial gastrectomy followed by chemoradiation therapy in 2018. Other pertinent surgical history includes thyroidectomy, parotid gland excision as well as intra-ocular lens implantation. SOCIAL HISTORY: The patient denies any cigarette smoking, ethanol, or illicit drug abuse. FAMILY HISTORY: Noncontributory for this patient's age. PRE-HOSPITAL MEDICATIONS: Includes: 1. Amlodipine 5 mg p.o. daily. 2. Aspirin 81 mg p.o. daily. 3. Atenolol 50 mg p.o. daily. 4. Atorvastatin 10 mg p.o. daily. 5. Vitamin D3 2000 units p.o. q.a.m. 6. Levothyroxine 137 mcg p.o. daily. 7. Multivitamins. ALLERGIES: THE PATIENT HAS NO KNOWN DRUG ALLERGIES. REVIEW OF SYSTEMS: Ten-point review of systems essentially unremarkable except as stated in past medical history and chief complaint. PHYSICAL EXAMINATION: GENERAL: This reveals an 89-year-old normally developed woman, who is otherwise coherent, interactive and appears stated age. The patient is alert and oriented x3, appears to be in no acute distress at time of my evaluation. VITAL SIGNS: Includes blood pressure 135/76, pulse 76, respiratory rate is 19, oxygen saturation 98% on room air. HEART: Reveals regular rate and rhythm. No murmurs or gallops auscultated. LUNGS: Clear to auscultation bilaterally. Breathing, regular and nonlabored. ABDOMEN: Soft, moderately distended, and mildly tender to palpation with no gross rebound tenderness present. There are percussive fluid waves on examination. Liver and spleen nonpalpable below costal margin. Healed incisional scars noted in the upper abdomen consistent with previous history of laparoscopic partial gastrectomy. EXTREMITIES: Reveal 2+ radial and pedal pulses bilaterally. NEUROLOGIC: Reveals no focal deficits present. LABORATORY FINDINGS: Today includes a CBC with 6000 white blood cells, hemoglobin and hematocrit 12.2 and 36.3 respectively. The platelet count is 312,000. Differential counts as follows, 69% segmented neutrophils, 2 bands, 6 lymphocytes, and 22 monocytes. Metabolic profile; sodium 127, potassium 4.1, chloride is 92, bicarb is 24, BUN 34, creatinine is 1.12, glucose is 116, magnesium is 2.1. AST and ALT are 23 and 10 respectively. Serum lipase is normal at 4. I have personally reviewed the CT scan of the abdomen and pelvis, which reveals multiple distended loops of small bowel involving almost the entire loop of bowel or small bowel extending to the ileocecal junction. There is also noted is mid transverse colonic wall thickening with distention of the colon proximal to this focal wall thickening and decompression of the colon distal to this segment. There is moderate amount of ascites. Extensive diverticulosis coli involving the left colon is noted without any evidence of acute diverticulitis. Please note that the abdominal ascites, small and large bowel dilatation as well as the focal colonic wall thickening and narrowing of the mid transverse colon is a new finding when compared to CT scan of the abdomen and pelvis obtained in July 09, 2019. IMPRESSIONS: 1. Acute small-bowel obstruction, likely secondary to acute proximal large bowel obstruction. 2. History of [id number] differentiated gastric adenocarcinoma. 3. History of essential hypertension. RECOMMENDATIONS: 1. Bowel rest and increase activity per Physical and Occupational therapy. 2. We will ask Gastroenterology to evaluate the patient for possible colonoscopy to determine, if the mid transverse colon wall thickening and narrowing is intrinsic versus extrinsic in nature. I highly suspect recurrence of the gastric adenocarcinoma versus a primary colonic neoplasm given this patient's history of multiple malignancies. 3. Above findings and recommendations were discussed with the patient in the presence of her daughter at bedside. They both indicated understanding information given. 4. I have answered their questions. Thank you again, Dr. Lutz, for allowing me the opportunity to participate in the care of this patient. Job ID: [id number]
[2019-08-26] MEDS: Fleet Enema 133 ML BOT PR PRN ×3 (02:41→09:36)
[2019-08-26] MEDS: Dextrose 5 % And 0.9 % NaCl 1,000 ML IV SCH ×3 (05:37→18:11)
[2019-08-26 05:56] LABS: Anion Gap 12 mmol/L (10-20); BUN (Urea Nitrogen) 28 mg/dL (9.8-20.1); Calc. Creatinine Clearance 109 mL/min (70-130); Calcium 8.5 mg/dL (7.8-10.44); Carbon Dioxide 22 mmol/L (23-31); Chloride 97 mmol/L (98-107); Estimated GFR-MDRD 66; Glucose 166 mg/dL (83-110); Potassium 3.2 mmol/L (3.5-5.1); Sodium 128 mmol/L (136-145)
[2019-08-26 06:06] LABS: Band 12 % (5-11); Eosinophils 1 % (0-10); Hemoglobin 11.6 g/dL (12.0-16.0); Hypochromia SLIGHT = 6-15 cells (100X) (0-5/hpf); Lymphocytes 15 % (21-51); MDiff Complete? YES; Macrocytosis SLIGHT = 6-15 cells (100X) (0-5/hpf); Mean Corpuscular Hemoglobin 36.6 pg (27.0-31.0); Monocytes 12 % (0-10); Neutrophil 60 % (42-75); Platelet Count 286 thou/uL (130-400); Platelet Morphology Comment Appears Adequate; RBC Distribution Width 12.3 % (11.5-14.5); Red Blood Cell (RBC) Count 3.18 mill/uL (4.20-5.40); White Blood Cell (WBC) Count 4.3 thou/uL (4.8-10.8)
[2019-08-26] MEDS: Enoxaparin Sodium 30 MG/0.3 ML SYRINGE SC SCH (09:32)
--- NOTE | 2019-08-26 09:59 | CON ---
DATE OF CONSULTATION: 08/26/2019 REQUESTING PHYSICIAN: Michael Lutz MD REASON FOR CONSULTATION: Nausea, vomiting, bowel obstruction. HISTORY OF PRESENT ILLNESS: Mayda Issa is an 89-year-old woman with a recent history of metastatic gastric carcinoma diagnosed in 2018 by my colleague, Dr. Timothy Madrid. This is stage III disease for which she underwent partial gastrectomy with jejunostomy reconstruction, followed by chemoradiation therapy. She has had serial PET scans. The last one was in December, which was unremarkable with no evidence for any recurrent disease. She had a more recent EGD on 05/18/2019, which showed widely patent and healthy appearing Que-en-Y gastrojejunostomy. No evidence of recurrence. It looks like her last colonoscopy was in 2002 and was a normal exam. She has lost about 70 pounds since her gastrectomy last year. She presented to the emergency department with 2-day complaint of abdominal pain, nausea, and abdominal distention as well as nonbloody emesis. Her last bowel movement was 2 days prior. No fever. She briefly had nasogastric tube for decompression yesterday. An abdominal CT yesterday demonstrated dilation of the small bowel to the level of the ileocecal valve and also dilation of the ascending colon 8.4 cm ending in an area of colon wall thickening at the transverse colon, beyond which the colon was decompressed and normal in caliber. This area is adjacent to the area of postsurgical changes related to her prior partial gastrectomy. Dr. Cooley was consulted. He is requesting we consider diagnostic lower endoscopy to try to determine if this is an extrinsic process related to her prior surgery, versus malignant neoplastic process. The patient received 4 enemas last night with partial clearing of stools. I have ordered more enemas for this morning prior to attempted colonoscopy. The patient is currently feeling a bit better. She remains somewhat nauseated. Abdominal pain is minimal. REVIEW OF SYSTEMS: Full review of systems including constitutional; head, eyes, ears, nose, and throat; GI, , cardiovascular, respiratory, musculoskeletal, and neurologic systems are negative except as noted in the HPI. 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 ALLERGIES: CODEINE MAKES HER NAUSEATED. FAMILY HISTORY: Sister had breast cancer and leukemia. SOCIAL HISTORY: No smoking or alcohol use. OUTPATIENT MEDICATIONS: 1. Lotrel. 2. Atenolol. 3. Levothyroxine. 4. Lipitor. 5. Multivitamin. 6. Calcium/vitamin-D. 7. Plavix 75 mg daily. 8. Ferrous sulfate 325 mg daily. 9. Hydrochlorothiazide. 10. Omeprazole 20 mg daily. PHYSICAL EXAMINATION: VITAL SIGNS: Temperature 98.0, pulse 64, blood pressure 100/55, 96% oxygen saturation on room air. GENERAL: An 89-year-old woman lying in bed comfortably, in no distress. SKIN: No jaundice. No rashes are palpable. HEENT: Eyes, no scleral icterus. Extraocular movements intact. ENT mucous membranes moist. No oral lesions. LYMPH: No submandibular or supraclavicular lymphadenopathy. NECK: Thyroid, nontender to palpation. HEART: Regular rate and rhythm. LUNGS: Clear to auscultation bilaterally. ABDOMEN: Mild distention. Tympanitic to percussion. Bowel sounds are hypoactive, but present. The abdomen is soft. Some tenderness to palpation in the epigastrium. No guarding or rebound tenderness. EXTREMITIES: No peripheral edema. VESSELS: Radial pulses 2+ bilaterally. NEURO: Cranial nerves 2 through 12 intact bilaterally. No focal deficits. LABORATORY STUDIES: WBC 4.3, hemoglobin 11.6, platelets 286. Sodium 128, potassium 3.2, BUN 28, creatinine 0.82. LFTs all normal with total bilirubin 1.1, alkaline phosphatase 75, AST 23, ALT 10, lipase less than 4. IMAGING STUDIES: CT of the abdomen and pelvis demonstrates a focal area of colon wall thickening in the transverse colon with adjacent minimal inflammatory changes. There is proximal dilation, and distally the bowel caliber is normal. This could possibly represent neoplastic process. There are some dilated loops of small bowel up to the level of the ileocecal valve. There is diverticulosis of the colon, stable nodular thickening of the adrenal glands bilaterally and postsurgical changes of the stomach with gastrojejunostomy. There is a [id number] amount of ascites as well. ASSESSMENT AND PLAN: 1. Large bowel obstruction, transverse colon. 2. Abnormal CT scan of the colon. 3. History of gastric adenocarcinoma, status post partial gastrectomy. I discussed the case with Dr. Cooley. This appears to be a low-grade obstructive process, but all knew just over the past few days. It is unclear from the imaging whether this represents some extrinsic process secondary to her prior gastric surgery with scar tissue formation, versus another neoplastic process. I agree that lower endoscopy is reasonable to try to help sort this out. We have been unable to administer bowel preparation due to the patient's obstructive symptoms. She has had partial response to the enema prep. I have ordered more enemas for this morning and we will give it our best try. Hopefully, we will be able to get adequate visualization later today. The patient agrees with the plan. Thank you for the consultation. Please call at anytime with questions or concerns. Job ID: [id number]
[2019-08-26] MEDS ORDERED: Lidocaine 1% PF 5 ML VIAL ONE (10:37)
[2019-08-26] MEDS ORDERED: Succinylcholine Chloride 20 MG/ML 10 ml SYRINGE FS ONE (10:37)
[2019-08-26] MEDS ORDERED: PROPOFOL 200 MG/20 ML VIAL ONE (10:37)
[2019-08-26] MEDS ORDERED: Fentanyl 100 MCG/2 ML VIAL ONE (11:10)
[2019-08-26] MEDS ORDERED: Promethazine HCl 25 MG/ML VIAL SLOW IVP PRN (12:08)
[2019-08-26] MEDS ORDERED: Ondansetron HCl/PF 4 MG/2 ML Vial IVP PRN (12:08)
[2019-08-26] MEDS ORDERED: Promethazine HCl 25 MG/ML VIAL IM PRN (12:08)
--- NOTE | 2019-08-26 12:39 | OP ---
DATE OF PROCEDURE: 08/26/2019 CURRICULUM WRITER SURGEON: None. PROCEDURE PERFORMED: Colonoscopy, incomplete. INDICATION: Partial colonic obstruction at the level of the transverse colon, based on CT scan, concerning for possible malignancy versus extrinsic compression. MEDICATIONS: See Anesthesia record. FINDINGS: After discussion of the risks, benefits, and alternatives of the procedure, informed consent was obtained and witnessed. Pre-endoscopic cardiopulmonary examination was satisfactory. Time-out was performed before sedation was achieved. Sedation was achieved with Anesthesia assistance in the endoscopy unit. A Pentax adult colonoscope was prepared. Digital rectal exam was performed, which was unremarkable. The colonoscope was inserted into the anus and passed forward in the usual fashion. The colonoscope was advanced to a distance of 80 cm, which is felt to be in the mid transverse colon. At this point, there is some swirling and narrowing of the colonic lumen. Advancement of the endoscope was not possible, due to extensive looping of the scope and quite fixed colon in this area. There were no mucosal abnormalities visualized to this extent. The endoscope was withdrawn in a gradual and circumferential manner with careful examination of the colonic mucosa distal to this area. There was diverticulosis in the sigmoid colon with some patchy peridiverticular erythema. No other mucosal abnormalities. The colonoscope was completely withdrawn and the patient allowed to recover. The patient tolerated the procedure well. There were no immediate postprocedure complications. IMPRESSION: 1. Swirling and narrowing of the colonic lumen at 80 cm with no mucosal abnormality, suggestive of extrinsic compression. Unable to advance the endoscope beyond this point. 2. Sigmoid diverticulosis with some patchy peridiverticular erythema. RECOMMENDATION: We will discuss the case with Dr. Cooley. Findings are suggestive of extrinsic compression. Job ID: [id number]
[2019-08-26] MEDS ORDERED: MD-Gastroview 120 ML BOT ONE (13:23)
[2019-08-26] MEDS: Ondansetron PF 4 MG/2 ML Vial IVP PRN (14:11)
[2019-08-26] MEDS: Morphine 2 MG/ML SYRINGE SLOW IVP PRN ×2 (14:11→20:51)
--- NOTE | 2019-08-26 15:18 | PDOC.HOSPP ---
- Subjective Encounter Date: 08/26/19 Encounter Time: 15:16 Subjective: Ms. Issa was seen today in follow-up of small bowel obstruction. She says she did not sleep much last night due to the colon prep. She says the abdominal pain has improved. She continues to have nausea - Objective Vital Signs & Weight: Vital Signs (12 hours) Temp Pulse Resp BP Pulse Ox 08/26/19 12:20 97.7 F 63 18 126/58 L 100 08/26/19 07:30 98.0 F 64 16 100/55 L 95 08/26/19 04:00 98.3 F 64 16 108/59 L Weight Weight 328 lb 4.8 oz I&O: 08/25/19 08/26/19 08/27/19 06:59 06:59 06:59 Output Total 200 Balance -200 Result Diagrams: 08/26/19 05:09 08/26/19 05:09 Hospitalist ROS - Medication Medications: Active Medications Generic Name Dose Route Start Last Admin Trade Name Freq PRN Reason Stop Dose Admin Enoxaparin Sodium 30 mg 08/26/19 09:00 08/26/19 09:32 Lovenox SC 30 mg 0900 JANNETH Administration Famotidine 20 mg 08/25/19 21:00 08/25/19 21:20 Pepcid SLOW IVP 20 mg 2100 JANNETH Administration Dextrose/Sodium Chloride 1,000 mls @ 150 mls/hr 08/26/19 09:02 08/26/19 09:33 D5 0.9% Ns IV Not Given .Q6H40M JANNETH Morphine Sulfate 2 mg 08/25/19 18:43 08/26/19 14:11 Morphine SLOW IVP 2 mg Q4H PRN Administration Moderate Pain (4-6) Ondansetron HCl 4 mg 08/25/19 18:43 08/26/19 14:11 Zofran IVP 4 mg Q6H PRN Administration Nausea/Vomiting Sodium Biphosphate/Sodium Phosphate 133 ml 08/25/19 20:35 08/26/19 09:36 Fleet Enema OK 133 ml PRN PRN Administration UNTIL STOOL IS CLEAR - Exam Eye: PERRL Heart: RRR, no murmur, no gallops, no rubs, normal peripheral pulses Respiratory: CTAB, no wheezes, no rales, no ronchi, normal chest expansion Gastrointestinal: soft, non-tender, non-distended, normal bowel sounds, no palpable masses, no hepatomegaly, no splenomegaly Extremities: no cyanosis, no clubbing, no edema Psychiatric: normal affect, normal behavior, A&O x 3 Hosp A/P (1) Small bowel obstruction Code(s): K56.609 - UNSP INTESTNL OBST, UNSP TO PARTIAL VERSUS COMPLETE OBST Status: Acute (2) Hypertension Code(s): I10 - ESSENTIAL (PRIMARY) HYPERTENSION Status: Acute (3) Hypothyroidism Code(s): E03.9 - HYPOTHYROIDISM, UNSPECIFIED Status: Acute - Plan * Small Bowel obstruction- discussed with Dr. Cooley and Dr. Pabon. There appears to be some extrinsic pressure on the colon, etiology is unknown * Will continue conservative management for now * NG tube and symptom control * A small bowel follow-through has been ordered for today * Hypothyroidism- she is clinically euthyroid, and can be off thyrid medication for a few days. If it appears to be an extended length of time, then will administer the levothyroxine IV * HTN- blood pressure is stable
--- NOTE | 2019-08-26 17:53 | PRG ---
DATE OF SERVICE: 08/26/2019 SUBJECTIVE: Ms. Issa is an 89-year-old woman with history of metastatic gastric carcinoma, who is status post partial gastrectomy with gastrojejunostomy in 2018. The patient presented at this time with abdominal pain associated with nausea and vomiting. CT scan of abdomen and pelvis was suggestive of small bowel obstruction. Additionally, an obstructive process is noted in the midtransverse colon. The patient underwent a colonoscopy today and narrowing of the transverse colon was noted with what appears to be an extrinsic compression. No neoplastic process however is visualized in the mucosa. The patient is awake and alert. She reports no significant abdominal pain. OBJECTIVE: VITAL SIGNS: Today include blood pressure 126/58, pulse is 63, respiratory rate is 18, temperature 97.7 degrees Fahrenheit, and oxygen saturation 100% on room air. HEART: Reveals regular rate and rhythm. No murmurs or gallops auscultated. LUNGS: Clear to auscultation bilaterally. Breathing, regular and nonlabored. ABDOMEN: Soft, mildly tender to palpation with no gross rebound tenderness present. There is moderate abdominal distention present. NEUROLOGIC: Reveals no focal deficits present. LABORATORY FINDINGS: Today include a CBC with 4300 white blood cells, hemoglobin and hematocrit 11.6 and 33.2 respectively. Platelet count is 286,000. Differential counts 60% segmented neutrophils, 12 bands, 15 lymphocytes, 12 monocytes, and 1 eosinophil. Metabolic profile; sodium 128, potassium 3.2, chloride is 97, bicarb is 22, BUN 28, creatinine 0.82, and glucose 166. IMPRESSIONS: 1. Abdominal pain with acute small-bowel obstruction. Etiology is uncertain at this time. 2. Probable compression of the transverse colon causing large bowel obstruction. PLAN: 1. We will initiate small-bowel follow-through today to try and localize the site of obstruction. 2. There is no acute surgical indication at this time, however, we will consider surgical intervention once the small-bowel follow-through has been completed or failure to complete the small bowel obstruction due to pain or intolerance to contrast. 3. Above findings and plan discussed with the patient and family at bedside. They indicated understanding of information given. I have answered their questions. Job ID: [id number]
[2019-08-26] MEDS ORDERED: Ondansetron PF 4 MG/2 ML Vial SLOW IVP SCH (19:15)
--- NOTE | 2019-08-26 20:50 | RAD ---
SMALL BOWEL EXAM: Indications: Small bowel obstruction. FINDINGS: Gastrografin infused into an indwelling NG tube. The lidder film shows gas filled dilated loops of small bowel. On the one hour film, most of the contrast remains in the stomach. The patient is placed right decubi tus and on the subsequent film contrast begins to empty from the stomach. On the 2.5 hour film, the p roximal jejunum is opacified and does show dilatation and fold thickening. On the 3.5 hour film jejun um and ileum are opacified and there is mild dilatation. Contrast is seen in the right colon on the 4 hour film. There continues to be opacification of the sm all bowel which shows persistent mild dilatation. The opacified right colon is dilated which was desc ribed on the CT scan. IMPRESSION: Mild dilatation of small bowel and right colon. Transient time to the right colon is approximately 3 hours. POS: OFF
[2019-08-26] MEDS: Famotidine/PF 20 mg/2ml Vial SLOW IVP SCH (20:51)
[2019-08-26] MEDS ORDERED: FLU VACC TS2019-20(65YR UP)/PF 180 MCG/0.5 ML SYRINGE IM ONE (21:00)
--- NOTE | 2019-08-27 02:12 | PRG ---
DATE OF SERVICE: 08/27/2019 SUBJECTIVE: The patient is currently on the telemetry floor. She was admitted for suspected partial bowel obstruction. Today, she underwent a colonoscopy that Dr. Pabon felt the patient may have a colonic partial obstruction due to extrinsic compression. Dr. Cooley examined the patient, was in agreement with this. It did not appear that the patient had any surgical indications at this time and ordered a small bowel follow-through. The patient was able to undergo this procedure. There were no reported incidence of emesis. The results of the small bowel follow-through was mild dilation of small bowel and right colon. Transit time to the right colon is approximately 3 hours. PHYSICAL EXAMINATION: VITAL SIGNS: Stable. The patient is afebrile. GENERAL: The patient is resting in bed. She appears comfortable. She is asleep. I did not awaken her. There is no reported emesis and no report of bowel movement at this time in her records. PLAN: The patient will be re-evaluated in the morning, likely started on clear liquid diet, advanced as tolerated as according to the small bowel follow-through, her obstruction is likely resolving. Job ID: [id number]
[2019-08-27] MEDS: Dextrose 5 % And 0.9 % NaCl 1,000 ML IV SCH ×4 (02:19→20:48)
[2019-08-27 05:38] LABS: Anion Gap 11 mmol/L (10-20); BUN (Urea Nitrogen) 21 mg/dL (9.8-20.1); Calc. Creatinine Clearance 43 mL/min (70-130); Calcium 8.7 mg/dL (7.8-10.44); Carbon Dioxide 24 mmol/L (23-31); Chloride 107 mmol/L (98-107); Estimated GFR-MDRD 68; Glucose 158 mg/dL (83-110); Sodium 140 mmol/L (136-145)
[2019-08-27 05:42] LABS: Potassium 2.4 mmol/L (3.5-5.1)
[2019-08-27 06:18] LABS: Band 10 % (5-11); Lymphocytes 11 % (21-51); MDiff Complete? YES; Mean Corpuscular Hemoglobin 35.9 pg (27.0-31.0); Mean Platelet Volume 6.9 fL (7.4-10.4); Monocytes 18 % (0-10); Neutrophil 61 % (42-75); Platelet Count 282 thou/uL (130-400); Platelet Morphology Comment Appears Adequate; RBC Distribution Width 12.5 % (11.5-14.5); Red Blood Cell (RBC) Count 3.07 mill/uL (4.20-5.40); White Blood Cell (WBC) Count 4.7 thou/uL (4.8-10.8)
[2019-08-27] MEDS ORDERED: Potassium Chloride 40 MEQ in Sodium Chloride 0.9% 250 ML 250 ML IVPB SCH ×2 (06:30→15:15)
[2019-08-27 08:31] LABS: Magnesium 2.1 mg/dL (1.6-2.6); Phosphorus 2.3 mg/dL (2.3-4.7)
[2019-08-27] MEDS: Enoxaparin Sodium 30 MG/0.3 ML SYRINGE SC SCH (10:31)
[2019-08-27] MEDS ORDERED: Acetaminophen 325 MG TAB PO PRN (12:10)
[2019-08-27] MEDS ORDERED: Ondansetron PF 4 MG/2 ML Vial ONE (13:26)
[2019-08-27] MEDS ORDERED: PROPOFOL 200 MG/20 ML VIAL ONE (13:26)
[2019-08-27] MEDS ORDERED: Lidocaine 1% PF 5 ML VIAL ONE (13:26)
[2019-08-27] MEDS ORDERED: Succinylcholine Chloride 20 MG/ML 10 ml SYRINGE FS ONE (13:26)
[2019-08-27 14:01] LABS: Anion Gap 13 mmol/L (10-20); BUN (Urea Nitrogen) 19 mg/dL (9.8-20.1); Calc. Creatinine Clearance 46 mL/min (70-130); Calcium 8.7 mg/dL (7.8-10.44); Carbon Dioxide 24 mmol/L (23-31); Chloride 109 mmol/L (98-107); Estimated GFR-MDRD 72; Glucose 143 mg/dL (83-110); Sodium 143 mmol/L (136-145)
[2019-08-27 14:06] LABS: Potassium 2.9 mmol/L (3.5-5.1)
--- NOTE | 2019-08-27 15:07 | PDOC.HOSPP ---
- Subjective Encounter Date: 08/27/19 Encounter Time: 13:00 Subjective: Ms. Issa was seen today in follow-up of small bowel obstruction. She has less nausea as well as abdominal pain. - Objective Vital Signs & Weight: Vital Signs (12 hours) Temp Pulse Resp BP Pulse Ox 08/27/19 08:30 98.1 F 77 16 166/75 H 96 08/27/19 08:00 96 08/27/19 03:58 98.8 F 74 16 150/67 H 100 Weight Admit Weight 126 lb 12.8 oz Weight 126 lb 12.8 oz I&O: 08/26/19 08/27/19 08/28/19 06:59 06:59 06:59 Intake Total 750 Output Total 200 600 Balance -200 150 Result Diagrams: 08/27/19 04:22 08/27/19 13:24 Hospitalist ROS - Medication Medications: Active Medications Generic Name Dose Route Start Last Admin Trade Name Freq PRN Reason Stop Dose Admin Acetaminophen 650 mg 08/27/19 12:10 08/27/19 12:35 Tylenol PO 650 mg Q6H PRN Administration Headache/Fever or Pain Enoxaparin Sodium 30 mg 08/26/19 09:00 08/27/19 10:31 Lovenox SC 30 mg 0900 JANNETH Administration Famotidine 20 mg 08/25/19 21:00 08/26/19 20:51 Pepcid SLOW IVP 20 mg 2100 JANNETH Administration Dextrose/Sodium Chloride 1,000 mls @ 150 mls/hr 08/26/19 09:02 08/27/19 10:31 D5 0.9% Ns IV Not Given .Q6H40M JANNETH Morphine Sulfate 2 mg 08/25/19 18:43 08/26/19 20:51 Morphine SLOW IVP 2 mg Q4H PRN Administration Moderate Pain (4-6) Ondansetron HCl 4 mg 08/25/19 18:43 08/26/19 14:11 Zofran IVP 4 mg Q6H PRN Administration Nausea/Vomiting Sodium Biphosphate/Sodium Phosphate 133 ml 08/25/19 20:35 08/26/19 09:36 Fleet Enema OK 133 ml PRN PRN Administration UNTIL STOOL IS CLEAR - Exam Eye: PERRL, anicteric sclera Heart: RRR, no murmur, no gallops, no rubs, normal peripheral pulses Respiratory: CTAB, no wheezes, no rales, no ronchi, normal chest expansion, no tachypnea, normal percussion Gastrointestinal: soft, non-tender, non-distended, normal bowel sounds, no hepatomegaly, no splenomegaly Extremities: no cyanosis, no clubbing, no edema Hosp A/P (1) Small bowel obstruction Code(s): K56.609 - UNSP INTESTNL OBST, UNSP TO PARTIAL VERSUS COMPLETE OBST Status: Acute (2) Hypertension Code(s): I10 - ESSENTIAL (PRIMARY) HYPERTENSION Status: Acute (3) Hypothyroidism Code(s): E03.9 - HYPOTHYROIDISM, UNSPECIFIED Status: Acute - Plan * Small Bowel obstruction- SBFT results noted. Patient will likely have NG tube removed, and a trial of clear liquids * Will await further recommendations from GI and Surgery * Hypothyroidism- she is clinically euthyroid- will re-start her Thyroid medications * Hypokalemia- likely from GI losses- will continue to replace * HTN- blood pressure is stable
--- NOTE | 2019-08-27 15:51 | PRG ---
DATE OF SERVICE: 08/27/2019 SUBJECTIVE: Ms. Issa was in the hospital for partial bowel obstruction. She had a transition zone in her transverse colon just below the area of her gastric bypass, which was done for gastric cancer last year. This was at [facility]. More recently, she saw me in the office last week with complaints of early satiety and epigastric pain. We had discussed repeating a CAT scan at that time, but she just had one last month, so an EGD was scheduled actually for this coming Tuesday. Here, she had a CAT scan showing the obstruction. She was decompressed. She had a flex sig by Dr. Pabon, who just saw extrinsic compression of the colon and then, she had an upper GI with Gastrografin via the NG tube, which showed retention of contrast material in the stomach and then, emptying into the jejunum. Then by 3.5 hours, it was into the ileum, right colon 4 hours. She had no further x-ray since that time. Her NG tube was apparently clamped now. When talked with her, she has had multiple bowel movements. She attributes these to the enemas. OBJECTIVE: VITAL SIGNS: Temperature 98.1, pulse 77, blood pressure 120s/80s. ABDOMEN: Soft, nontender. There is no rebound or guarding. NG tube is in place. ASSESSMENT: Bowel obstruction, partial likely of the transverse colon. This is right at the same region as her gastric surgery for gastric cancer last year and she saw me in the office last week with symptoms of early satiety, probably related to this process. Differential diagnosis would include carcinomatosis, recurrence of malignancy at surgical site, or adhesive disease. RECOMMENDATIONS: EGD to evaluate her gastrojejunal anastomosis for recurrence. If this is negative and there is no signs of obstruction, we will get plain films tomorrow and if there is continued resolution of the obstruction, we could advance her diet slowly as tolerated and consider an outpatient PET scan with Oncology. If the obstruction does not resolve, it would be reasonable to transfer back to her oncologic surgeon at [facility] in [place]. Job ID: [id number] MTDD
[2019-08-27] MEDS ORDERED: Ondansetron HCl/PF 4 MG/2 ML Vial IVP PRN (17:23)
--- NOTE | 2019-08-27 18:54 | RAD ---
KUB: HISTORY: Follow up small bowel obstruction. COMPARISON: Prior day's exam. FINDINGS: There is still a large amount of residual contrast, which is now mainly in the colon but some is stil l within small bowel. The distention to the small bowel loops may be slightly diminished. IMPRESSION: Large amount of oral contrast still present within the colon but also small bowel. Some of the small bowel distention is slightly decreased. POS: NINO
[2019-08-27] MEDS: Famotidine/PF 20 mg/2ml Vial SLOW IVP SCH (20:48)
--- NOTE | 2019-08-27 21:52 | OP ---
DATE OF PROCEDURE: 08/27/2019 PREPROCEDURE DIAGNOSES: 1. Bowel obstruction with transition zone in the colon, transverse region with quite a bit of edema seemed to be adjacent to the prior surgical resection and gastrojejunostomy anastomosis. 2. Recent issues with nausea and early satiety. 3. 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 Of note, the patient's proximal surgical margin was positive for tumor and there was peritoneal disease. POSTPROCEDURE DIAGNOSES: 1. Normal esophagus. 2. Stomach is normal but anastomosis to the gastrojejunostomy shows significant submucosal edema. I am able to traverse the Que limb for about a distance of 10 cm and then it seems to stenose off, I cannot find the limb and traverse past further. 3. Medication induced angioedema is possible, but less likely. RECOMMENDATIONS: 1. Consider involvement of Oncology, consider transfer back to [facility] for oncologic surgeon as this is likely recurrent disease and less likely adhesive disease although adhesive disease is still a possibility. 2. Keep NG tube in place. 3. Would repeat films tomorrow. ANESTHESIA: General endotracheal anesthesia. DESCRIPTION OF PROCEDURE: The patient was informed of the risks, benefits, and possible complications of endoscopy including perforation, reaction to medication and aspiration, informed consent was obtained. The patient was brought to endoscopy suite, where she was sedated in gradual fashion. Once she was comfortable, a bite-block was placed inside the orifice. The endoscope was advanced through the esophagus and the stomach. The esophagus was normal. Stomach was notable for previous gastrectomy. There was anastomosis with jejunum with quite a bit of edema and submucosal edema. No overt malignancy or tumor was seen. This area was traversed and could be traversed to about 10 cm, but beyond that, I could not traverse the lumen as it seemed to just close off. It is unclear if there was a sharp turn or this is where an area of possible edema or where there is a blockage in the colon was noted as well, but the scope could not be advanced further. Therefore, it was removed. The patient was brought to recovery room in stable condition. NG tube was replaced. Job ID: [id number]
[2019-08-28] MEDS: Dextrose 5 % And 0.9 % NaCl 1,000 ML IV SCH ×3 (07:39→14:02)
[2019-08-28 08:58] LABS: Anion Gap 11 mmol/L (10-20); BUN (Urea Nitrogen) 12 mg/dL (9.8-20.1); Calc. Creatinine Clearance 48 mL/min (70-130); Calcium 8.6 mg/dL (7.8-10.44); Carbon Dioxide 23 mmol/L (23-31); Chloride 110 mmol/L (98-107); Estimated GFR-MDRD 76; Glucose 123 mg/dL (83-110); Sodium 141 mmol/L (136-145)
[2019-08-28] MEDS: Enoxaparin Sodium 30 MG/0.3 ML SYRINGE SC SCH (09:25)
--- NOTE | 2019-08-28 10:31 | RAD ---
ABDOMEN ONE VIEW: HISTORY: Follow up small bowel follow-through. COMPARISON: 08/27/2019 FINDINGS: Essentially stable opacification of multiple contrast-filled loops of small bowel. There is a dilated loop of what is presumed to be small bowel in the right hemiabdomen. There does not appear to be any significant contrast opacification of the colon. A suture chain is noted in the left upper quadrant. IMPRESSION: Persistent contrast opacification of multiple distended loops of small bowel, compatible with a high grade small bowel obstruction. POS: JULISA
--- NOTE | 2019-08-28 16:44 | PDOC.HOSPP ---
- Subjective Encounter Date: 08/28/19 Encounter Time: 13:00 Subjective: Ms. Issa was seen today in follow-up of small bowel obstruction. She continues to have some abdominal pain. She denies any nausea or vomiting today. - Objective Vital Signs & Weight: Vital Signs (12 hours) Temp Pulse Resp BP Pulse Ox 08/28/19 11:42 98.0 F 85 14 175/83 H 97 08/28/19 07:37 98.4 F 74 18 168/79 H 97 Weight Admit Weight 126 lb 12.8 oz Weight 126 lb 12.8 oz I&O: 08/27/19 08/28/19 08/29/19 06:59 06:59 06:59 Intake Total 750 Output Total 600 Balance 150 Result Diagrams: 08/27/19 04:22 08/28/19 08:26 Hospitalist ROS - Medication Medications: Active Medications Generic Name Dose Route Start Last Admin Trade Name Freq PRN Reason Stop Dose Admin Acetaminophen 650 mg 08/27/19 12:10 08/27/19 12:35 Tylenol PO 650 mg Q6H PRN Administration Headache/Fever or Pain Enoxaparin Sodium 30 mg 08/26/19 09:00 08/28/19 09:25 Lovenox SC 30 mg 0900 JANNETH Administration Famotidine 20 mg 08/25/19 21:00 08/27/19 20:48 Pepcid SLOW IVP 20 mg 2100 JANNETH Administration Dextrose/Sodium Chloride 1,000 mls @ 150 mls/hr 08/26/19 09:02 08/28/19 14:02 D5 0.9% Ns IV Not Given .Q6H40M [facility] Morphine Sulfate 2 mg 08/25/19 18:43 08/26/19 20:51 Morphine SLOW IVP 2 mg Q4H PRN Administration Moderate Pain (4-6) Ondansetron HCl 4 mg 08/25/19 18:43 08/26/19 14:11 Zofran IVP 4 mg Q6H PRN Administration Nausea/Vomiting Sodium Biphosphate/Sodium Phosphate 133 ml 08/25/19 20:35 08/26/19 09:36 Fleet Enema OR 133 ml PRN PRN Administration UNTIL STOOL IS CLEAR Sodium Chloride 10 ml 08/27/19 21:00 08/28/19 09:25 Flush - Normal Saline IVF Not Given Q12HR JANNETH - Exam Eye: PERRL Heart: RRR, no murmur, no gallops, no rubs, normal peripheral pulses Respiratory: CTAB, no wheezes, no rales, no ronchi, normal chest expansion Gastrointestinal: soft, non-tender, non-distended, normal bowel sounds, no palpable masses, no hepatomegaly Hosp A/P (1) Small bowel obstruction Code(s): K56.609 - UNSP INTESTNL OBST, UNSP TO PARTIAL VERSUS COMPLETE OBST Status: Acute (2) Hypertension Code(s): I10 - ESSENTIAL (PRIMARY) HYPERTENSION Status: Acute (3) Hypothyroidism Code(s): E03.9 - HYPOTHYROIDISM, UNSPECIFIED Status: Acute - Plan * Small Bowel obstruction- this still has not completely resolved. Abdominal X- ray's noted * Hypothyroidism- she is clinically euthyroid- she is still, npo- will start IV synthroid in the AM * Hypokalemia- likely from GI losses- will continue to replace * HTN- blood pressure is a bit elevated- will add a Catapres patch and continue Hydralazine as needed * Discussed the patient 's options regarding treatment going forward. She is weighing her options. She would like to speak with her Oncologist, as well as Palliative care.
[2019-08-28] MEDS ORDERED: cloNIDine 0.1mg/24 Hour PATCH TD SCH (17:00)
[2019-08-28] MEDS ORDERED: D5W-AA 4.25% with LYTES 1,000 ML BAG IV SCH (17:00)
--- NOTE | 2019-08-28 17:10 | PRG ---
DATE OF SERVICE: 08/28/2019 SUBJECTIVE: Ms. Issa is admitted for obstructive-type symptoms and she has been able to tolerate liquids. She has persistent dilation of her cecum as well as her stomach on x-rays. Lower endoscopy revealed obstruction in the transverse colon. Upper endoscopy revealed obstruction on her Que limb. OBJECTIVE: ABDOMEN: Soft, minimally distended, but nontender. She has well-healed laparoscopic incisions. 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 I have discussed at length with the family her likely diagnosis as well as the natural history of recurrent intraabdominal cancer. She is not a candidate for any curative resection. I would recommend a palliative procedure if they consent. She needs diversion of her gastric outlet with gastrojejunostomy as well as potential diversion of her colon given this mid transverse colon obstruction. PLAN: My plan would be laparotomy, gastrojejunostomy, possible colostomy or ileostomy. We will do this tomorrow. The family will consider it overnight, although they are leaning more toward surgery. They understand that she is high risk for complications and given her advanced age, those complications could be associated with higher mortality. However, with this likely recurrent intraabdominal malignancy, she would be better palliated with the above-mentioned procedures, even if there is no curative resection to be done. Plan surgery tomorrow. Job ID: [id number]
[2019-08-28] MEDS ORDERED: Potassium Chloride 40 MEQ in Sodium Chloride 0.9% 250 ML 250 ML IVPB SCH (17:15)
--- NOTE | 2019-08-28 19:08 | PRG ---
DATE OF SERVICE: 08/28/2019 SUBJECTIVE: Ms. Issa has had no vomiting today. protuberant, but nauseated. X-ray showed persistent opacification of small bowel loops consistent with high-grade partial small-bowel obstruction. She is passing some gas. OBJECTIVE: VITAL SIGNS: Temperature is 98, pulse 76, blood pressure 179/82. NG tube is out. LUNGS: Clear. ABDOMEN: Protuberant, nontender. There is no rebound. There is no guarding. LABORATORY DATA: Today, sodium 140, potassium 3, BUN and creatinine are 12 and 0.72. ASSESSMENT: Likely recurrent gastric cancer. PLAN: I have talked with Dr. Lutz this morning and the patient's family last night about the option of transferring back to her oncologic surgeons at [facility]. She would rather not do that. Apparently, oncologist come by and see her today. They talked with Dr. Piña, who placed her Port-A-Cath and he has agreed to see her and agreed with the assessment, is going to see if we can perform some type of diversion palliative surgery for what appears to be obstruction. I explained to the patient that this will not likely be a curative procedure and Dr. Piña told her that as well. The goal is really to give her some palliation of symptoms. We will follow along with you. Job ID: [id number]
[2019-08-28] MEDS: Famotidine/PF 20 mg/2ml Vial SLOW IVP SCH (20:27)
--- NOTE | 2019-08-28 22:03 | CON ---
DATE OF CONSULTATION: REASON FOR CONSULT: Gastric cancer. HISTORY OF PRESENT ILLNESS: Ms. Issa is a pleasant 89-year-old female with a history of gastric adenocarcinoma, status post resection. She completed chemotherapy and radiation and has been in remission for the past year. She presented to the emergency room with abdominal discomfort, nausea, and difficulty eating. She underwent a CT scan of the abdomen and pelvis, which showed some colonic wall thickening with inflammatory changes consistent with bowel obstruction. She underwent an endoscopic evaluation. There was edema in the transverse region of the colon that was adjacent to her prior surgical resection and G-J anastomosis. Over the last day or so, she has had no nausea or vomiting, but still has not been able to eat or have a bowel movement. She remains on IV fluids. PAST MEDICAL HISTORY: 1. Gastric adenocarcinoma. 2. Carotid stenosis, status post TAVR. 3. Hyperlipidemia. 4. Hypertension. 5. Thyroid disease. PAST SURGICAL HISTORY: 1. Partial gastrectomy. 2. Thyroidectomy. 3. Cataract repair. 4. Parotid gland removal. ALLERGIES: NO KNOWN DRUG ALLERGIES. HOME MEDICATIONS: 1. Amlodipine. 2. Atenolol. 3. Lipitor. 4. Plavix. 5. Hydrochlorothiazide. 6. Synthroid. 7. Multivitamin. FAMILY HISTORY: Noncontributory. SOCIAL HISTORY: , has 2 children. No alcohol, tobacco, or illicit drug use. REVIEW OF SYSTEMS: Positive for poor appetite, weight loss, and abdominal pain. Otherwise, negative. PHYSICAL EXAMINATION: VITAL SIGNS: Temperature is 98.0, pulse is 85, respiratory rate 14, blood pressure is 175/83. She is 97% on room air. GENERAL: This is a well-developed, well-nourished female, in no acute distress. HEENT: Normocephalic, atraumatic. Pupils are equal and reactive to light. NECK: Supple. CV: Regular rate and rhythm. LUNGS: Clear. ABDOMEN: Mildly distended, nontender. She has hypoactive bowel sounds. EXTREMITIES: No clubbing or cyanosis. SKIN: No rash. HEMATOLOGICAL: No petechiae or purpura. NEUROLOGICAL: Nonfocal. PERTINENT LABORATORY DATA AND X-RAYS: Current WBCs are 4.7, hemoglobin 11, hematocrit 32.5, platelet count 282,000, 61% neutrophils, 10%, bands, 11% lymphocytes, 18% monocytes. Sodium 141, potassium 3.0, chloride 110, CO2 is 23, BUN is 12, creatinine is 0.72, calcium is 8.6, bilirubin is 1.1, AST is 23, ALT is 10, and alkaline phosphatase is 75. Troponin is 0.064. Serum total protein 7.1, albumin 4.2, globulin 2.9. Radiology per HPI. ASSESSMENT: 1. History of gastric adenocarcinoma, status post resection. 2. Bowel obstruction. DISCUSSION: The patient's bowel obstruction may be either from adhesions or recurrence of disease. Dr. Cooley has seen the patient; however, the patient has seen Dr. Piña in the past and we will ask for his opinion as well. If they feel that this is recurrence of disease, the patient will likely go on hospice, otherwise lysis of adhesions may improve her quality of life. The case has been discussed in detail with Dr. Piña and Dr. Aden. Thank you for the consult. Job ID: [id number] MTDD
[2019-08-29] MEDS: Dextrose 5 % And 0.9 % NaCl 1,000 ML IV SCH (01:00)
[2019-08-29] MEDS: Ondansetron PF 4 MG/2 ML Vial IVP PRN (05:36)
[2019-08-29 06:19] LABS: Anion Gap 11 mmol/L (10-20); BUN (Urea Nitrogen) 10 mg/dL (9.8-20.1); Calc. Creatinine Clearance 52 mL/min (70-130); Calcium 8.6 mg/dL (7.8-10.44); Carbon Dioxide 28 mmol/L (23-31); Chloride 103 mmol/L (98-107); Estimated GFR-MDRD 84; Glucose 125 mg/dL (83-110); Potassium 3.3 mmol/L (3.5-5.1); Sodium 139 mmol/L (136-145)
[2019-08-29] MEDS: Enoxaparin Sodium 30 MG/0.3 ML SYRINGE SC SCH (07:39)
--- NOTE | 2019-08-29 08:52 | PDOC.MOPN ---
Interval History: less abdominal pain, no NGT, she has some nausea but no vomiting. ready for surgery - Vital Signs Vital Signs: Vital Signs (12 hours) Temp Pulse Resp BP Pulse Ox 08/29/19 07:38 98.2 F 86 12 138/81 96 08/29/19 05:00 98.9 F 86 18 154/81 H 95 08/28/19 23:17 98.1 F 99 16 176/100 H 97 08/28/19 21:00 98.2 F 85 16 179/86 H 96 Weight Admit Weight 126 lb 12.8 oz Weight 126 lb 12.8 oz - Physical Exam General: Alert HEENT: Atraumatic Lungs: Clear to auscultation Cardiovascular: Regular rate Abdomen: Other (distended, some tenderness, no r/g) Extremities: No clubbing Skin: No rashes Neurological: Normal speech Psych/Mental Status: Mental status NL - Labs Result Diagrams: 08/27/19 04:22 08/29/19 05:45 Lab results: Laboratory Results - last 24 hr 08/29/19 05:45: Sodium 139, Potassium 3.3 L, Chloride 103, Carbon Dioxide 28, Anion Gap 11, BUN 10, Creatinine 0.66, Estimated GFR (MDRD) 84, Glucose 125 H, Calcium 8.6 08/28/19 08:26: Sodium 141, Potassium 3.0 L, Chloride 110 H, Carbon Dioxide 23, Anion Gap 11, BUN 12, Creatinine 0.72, Estimated GFR (MDRD) 76, Glucose 123 H, Calcium 8.6 A/P - Problem (1) Gastric malignant neoplasm Current Visit: Yes Status: Acute (2) Small bowel obstruction Current Visit: Yes Code(s): K56.609 - UNSP INTESTNL OBST, UNSP TO PARTIAL VERSUS COMPLETE OBST Status: Acute - Plan Plan: 1. surgery today 2. f/u on path after surgery 3. if she has malignancy she is not a candidate for more treatment and she is aware of this
[2019-08-29] MEDS ORDERED: Potassium Chloride 20 MEQ in Premix Bag 1 BAG IVPB SCH (09:30)
[2019-08-29] MEDS ORDERED: Fentanyl 250 MCG/5 ML VIAL ONE (09:53)
[2019-08-29] MEDS ORDERED: Midazolam HCl 2 mg/2 ml Vial ONE (09:53)
[2019-08-29] MEDS ORDERED: PROPOFOL 20 ML ONE (09:53)
[2019-08-29] MEDS ORDERED: Sodium Chloride 0.9% 100 ML ONE (10:26)
[2019-08-29] MEDS ORDERED: cefOXitin 2 GM VIAL ONE (10:26)
[2019-08-29] MEDS ORDERED: Albumin 5% 500 ML ONE (11:05)
[2019-08-29] MEDS ORDERED: Bupivacaine HCl 0.5%/Epinephrine 1:200,000/PF 30 ml Vial ONE (11:20)
[2019-08-29] MEDS ORDERED: Fentanyl 100 MCG/2 ML VIAL ONE ×2 (12:47→13:00)
[2019-08-29] MEDS ORDERED: Ondansetron HCl/PF 4 MG/2 ML Vial IVP PRN ×2 (12:47→12:48)
[2019-08-29] MEDS ORDERED: Promethazine HCl 25 MG/ML VIAL SLOW IVP PRN ×2 (12:47→12:48)
[2019-08-29] MEDS ORDERED: Promethazine HCl 25 MG/ML VIAL IM PRN ×2 (12:47→12:48)
[2019-08-29] MEDS ORDERED: Lidocaine 1% (PF) 30 ML VIAL ONE (13:13)
[2019-08-29] MEDS ORDERED: hydrALAZINE 20 MG/ML VIAL SLOW IVP PRN (13:15)
[2019-08-29] MEDS ORDERED: D5 1/2 NS w/20 mEq KCL 1,000 ML ONE (13:36)
[2019-08-29] MEDS ORDERED: Ondansetron PF 4 MG/2 ML Vial ONE (13:38)
[2019-08-29] MEDS ORDERED: PROPOFOL 200 MG/20 ML VIAL ONE (13:38)
[2019-08-29] MEDS ORDERED: Lidocaine 1% PF 5 ML VIAL ONE (13:38)
[2019-08-29] MEDS ORDERED: PHENYLEPHRINE-NS 100 MCG/ML 10 ML SYRINGE ONE (13:38)
[2019-08-29] MEDS ORDERED: Succinylcholine Chloride 20 MG/ML 10 ml SYRINGE FS ONE (13:38)
[2019-08-29] MEDS ORDERED: Rocuronium Bromide 10 MG/ML (10ML VIAL) ONE (13:38)
[2019-08-29] MEDS ORDERED: Labetalol HCl 100 MG/20 ML VIAL ONE (13:41)
[2019-08-29] MEDS: D5 1/2 NS w/20 mEq KCL 1,000 ML IV SCH (14:44)
--- NOTE | 2019-08-29 14:52 | PDOC.HOSPP ---
- Subjective Encounter Date: 08/29/19 Encounter Time: 14:50 Subjective: Mr. Issa was seen today in follow-up of small bowel obstruction. She has just returned from Surgery. - Objective Vital Signs & Weight: Vital Signs (12 hours) Temp Pulse Resp BP Pulse Ox 08/29/19 14:35 93 154/93 H 08/29/19 14:05 97.5 F L 77 16 187/89 H 100 08/29/19 08:00 96 08/29/19 07:38 98.2 F 86 12 138/81 96 08/29/19 05:00 98.9 F 86 18 154/81 H 95 Weight Admit Weight 126 lb 12.8 oz Weight 126 lb 12.8 oz I&O: 08/28/19 08/29/19 08/30/19 06:59 06:59 06:59 Intake Total 2725 Balance 2725 Result Diagrams: 08/27/19 04:22 08/29/19 05:45 Hospitalist ROS - Medication Medications: Active Medications Generic Name Dose Route Start Last Admin Trade Name Freq PRN Reason Stop Dose Admin Enoxaparin Sodium 30 mg 08/26/19 09:00 08/29/19 07:39 Lovenox SC Not Given 0900 JANNETH Potassium Chloride/Dextrose/Sod Cl 1,000 mls @ 80 mls/hr 08/29/19 13:15 08/29 14:44 D5 1/2 Ns W/20 Meq Kcl IV Not Given .[id number] JANNETH Morphine Sulfate 2 mg 08/25/19 18:43 08/26/19 20:51 Morphine SLOW IVP 2 mg Q4H PRN Administration Moderate Pain (4-6) - Exam Eye: PERRL Heart: RRR, no murmur, no gallops, no rubs, normal peripheral pulses Respiratory: CTAB, no wheezes, no rales, no ronchi Gastrointestinal: soft (hypoactive bowel sounds), no splenomegaly Extremities: no cyanosis, no clubbing, 1+ LE edema Hosp A/P (1) Small bowel obstruction Code(s): K56.609 - UNSP INTESTNL OBST, UNSP TO PARTIAL VERSUS COMPLETE OBST Status: Acute (2) Hypertension Code(s): I10 - ESSENTIAL (PRIMARY) HYPERTENSION Status: Acute (3) Hypothyroidism Code(s): E03.9 - HYPOTHYROIDISM, UNSPECIFIED Status: Acute - Plan * Small Bowel obstruction- She is s/p Surgery * Hypothyroidism- will start IV Levothyroixine * Hypokalemia- continue to replace * HTN- she is npo, will continue Catapres patch, and Hydralazine prn.
[2019-08-29] MEDS: cefOXitin Sodium/Dextrose,Iso 1 GM in Premix Bag 1 BAG IVPB SCH (17:12)
[2019-08-29] MEDS: Morphine 2 MG/ML SYRINGE SLOW IVP PRN (17:12)
[2019-08-29] MEDS: Acetaminophen 1,000 MG in Premix Bag 1 BAG IVPB SCH ×2 (18:45→23:59)
[2019-08-30] MEDS: D5 1/2 NS w/20 mEq KCL 1,000 ML IV SCH ×2 (01:49→13:01)
[2019-08-30] MEDS: cefOXitin Sodium/Dextrose,Iso 1 GM in Premix Bag 1 BAG IVPB SCH (01:52)
[2019-08-30 05:21] LABS: Anion Gap 8 mmol/L (10-20); BUN (Urea Nitrogen) 15 mg/dL (9.8-20.1); Band 29 % (5-11); Calc. Creatinine Clearance 44 mL/min (70-130); Calcium 7.9 mg/dL (7.8-10.44); Carbon Dioxide 25 mmol/L (23-31); Chloride 104 mmol/L (98-107); Estimated GFR-MDRD 69; Glucose 144 mg/dL (83-110); Hemoglobin 10.3 g/dL (12.0-16.0); Hypochromia SLIGHT = 6-15 cells (100X) (0-5/hpf); Lymphocytes 8 % (21-51); MDiff Complete? YES; Macrocytosis SLIGHT = 6-15 cells (100X) (0-5/hpf); Mean Corpuscular HGB CONC 33.7 g/dL (32.0-36.0); Mean Corpuscular Hemoglobin 36.3 pg (27.0-31.0); Monocytes 5 % (0-10); Neutrophil 58 % (42-75); Platelet Count 209 thou/uL (130-400); Platelet Morphology Comment Appears Adequate; Potassium 3.6 mmol/L (3.5-5.1); RBC Distribution Width 12.3 % (11.5-14.5); Red Blood Cell (RBC) Count 2.85 mill/uL (4.20-5.40); Sodium 133 mmol/L (136-145); White Blood Cell (WBC) Count 5.2 thou/uL (4.8-10.8)
[2019-08-30] MEDS ORDERED: Levothyroxine Sodium 200 MCG VIAL IVP SCH (06:00)
[2019-08-30] MEDS ORDERED: Levothyroxine 100 MCG SDV IVP SCH (06:00)
[2019-08-30] MEDS: Acetaminophen 1,000 MG in Premix Bag 1 BAG IVPB SCH (06:21)
--- NOTE | 2019-08-30 07:00 | PDOC.GSPN ---
Surgery Progress Note: Subj - Subjective Patient reports: no new complaints (Colostomy bag leak and replaced yesterday.) Narrative: Ms. Issa is a 89 year old female with a history of metastatic gastric carcinoma who is POD 1 from gastrojejunostomy and colostomy to help resolve obstruction with recurrent nausea and vomiting. She is doing well this morning. She is alert and oriented x3. Pain is well controlled, rated at 6-7/10. She received Tylenol this AM. Due to drowsiness after surgery, she only consumed a couple ice chips with minimal water after surgery. Morales catheter is in place without issues. The patient has not tried to ambulate yet. She did have questions regarding care and coverage of colostomy bag during showers. She denies vomiting, fevers, chills, and dizziness. Surgery Progress Note: Obj - Vital signs Vital signs: Vital Signs - Most Recent Temp Pulse Resp BP Pulse Ox 97.5 F L 73 16 127/70 97 08/30/19 03:42 08/30/19 03:42 08/30/19 03:42 08/30/19 03:42 08/30/19 03:42 - Physical Exam General: no distress ENT: normal mucosa Neck: no lymphadectomy, no masses Cardiovascular: regular rate and rhythm, no murmur Respiratory: clear to auscultation, normal respiratory effort, breath sounds present Abdomen: nondistended, positive bowel sounds, appropriately tender (Minimal tenderness to palpation.) Wound: dressing clean,dry,intact, healing well (Midline incision is healing well without erythema or purulent drainage. Colostomy bag appears clean with some bowel contents. No leaks currently present.) Surgery Progress Note: Results - Labs Result Diagrams: 08/30/19 04:44 08/30/19 04:44 Lab results: Laboratory Results - last 24 hr 08/30/19 08/30/19 04:44 04:44 WBC 5.2 RBC 2.85 L Hgb 10.3 L Hct 30.7 L MCV 108.0 H MCH 36.3 H MCHC 33.7 RDW 12.3 Plt Count 209 MPV 7.0 L Neutrophils % (Manual) 58 Band Neuts % (Manual) 29 H Lymphocytes % (Manual) 8 L Monocytes % (Manual) 5 Hypochromia SLIGHT = 6-15 cells Plt Morphology Comment Appears Adequate Macrocytosis SLIGHT = 6-15 cells Sodium 133 L Potassium 3.6 Chloride 104 Carbon Dioxide 25 Anion Gap 8 L BUN 15 Creatinine 0.79 Estimated GFR (MDRD) 69 Glucose 144 H Calcium 7.9 Surgery Progress Note: A/P - Plan Plan: Ms. Issa is a 89 year old female with a history of metastatic gastric carcinoma who is POD 1 from gastrojejunostomy and colostomy to help resolve obstruction with recurrent nausea and vomiting. Gastrojejunostomy and Colostomy -Continue ice chips and clear liquid diet -Continue to monitor pain -Encourage ambulation as tolerated -Ensure patient understanding with colostomy care HTN -Hydralazine ordered PRN Hypothyroidism -IV levothyroxine as per Dr. Lutz Addendum - Physician - Physician Attestation Date/Time: 08/30/19 1008 I personally performed or re-performed the physical examination and medical decision making. I have verified all student documentation or findings, including history, physical exam and/or medical decision making. Doing well. Trying liquids this am. Will need longterm Needs to ambulate
--- NOTE | 2019-08-30 09:31 | PDOC.MOPN ---
Interval History: patient taking clear liquids. No pain. - Vital Signs Vital Signs: Vital Signs (12 hours) Temp Pulse Resp BP Pulse Ox 08/30/19 08:57 98.3 F 76 14 128/73 95 08/30/19 03:42 97.5 F L 73 16 127/70 97 08/30/19 00:23 98.2 F 75 16 130/73 96 Weight Admit Weight 126 lb 12.8 oz Weight 126 lb 12.8 oz - Physical Exam General: Alert, Oriented x3, No acute distress HEENT: Atraumatic, PERRLA, EOMI, Mucous membr. moist/pink Lungs: Clear to auscultation, Normal air movement Cardiovascular: Regular rate, Normal S1, Normal S2, No murmurs, Gallops, Rubs Abdomen: Other Extremities: No clubbing, No cyanosis, No edema, Normal pulses, No tenderness/ swelling Skin: No rashes, No breakdown, No significant lesion Neurological: Normal gait, Normal speech, Strength at 5/5 X4 ext, Normal tone, Sensation intact, Cranial nerves 3-12 NL, Reflexes 2+ Psych/Mental Status: Mental status NL, Mood NL - Labs Result Diagrams: 08/30/19 04:44 08/30/19 04:44 Lab results: Laboratory Results - last 24 hr 08/30/19 04:44: WBC 5.2, RBC 2.85 L, Hgb 10.3 L, Hct 30.7 L, MCV 108.0 H, MCH 36.3 H, MCHC 33.7, RDW 12.3, Plt Count 209, MPV 7.0 L, Neutrophils % (Manual) 58 , Band Neuts % (Manual) 29 H, Lymphocytes % (Manual) 8 L, Monocytes % (Manual) 5 , Hypochromia SLIGHT = 6-15 cells, Plt Morphology Comment Appears Adequate, Macrocytosis SLIGHT = 6-15 cells 08/30/19 04:44: Sodium 133 L, Potassium 3.6, Chloride 104, Carbon Dioxide 25, Anion Gap 8 L, BUN 15, Creatinine 0.79, Estimated GFR (MDRD) 69, Glucose 144 H, Calcium 7.9 Status: lab reviewed by me A/P - Problem (1) Gastric malignant neoplasm Current Visit: Yes Status: Acute (2) Small bowel obstruction Current Visit: Yes Code(s): K56.609 - UNSP INTESTNL OBST, UNSP TO PARTIAL VERSUS COMPLETE OBST Status: Acute - Plan Plan: 1. Patient tolerating clear liquids 2. she has malignancy and is not a candidate for more treatment 3. Patient and daughters agree to hospice 4. CM consult
[2019-08-30] MEDS: Pantoprazole 40 MG VIAL IVP SCH (09:40)
[2019-08-30] MEDS: Enoxaparin Sodium 30 MG/0.3 ML SYRINGE SC SCH (09:40)
[2019-08-30] MEDS: Acetaminophen 1,000 MG in Premix Bag 1 BAG IVPB PRN ×2 (12:54→22:47)
--- NOTE | 2019-08-30 15:00 | PDOC.HOSPP ---
- Subjective Encounter Date: 08/30/19 Encounter Time: 12:30 Subjective: Ms. Issa was seen today in follow-up of small bowel obstruction. She has been advanced to a clear liquid diet. She says the pain is tolerable with Tylenol as needed. - Objective Vital Signs & Weight: Vital Signs (12 hours) Temp Pulse Resp BP Pulse Ox 08/30/19 12:01 98.4 F 84 14 131/77 96 08/30/19 08:57 98.3 F 76 14 128/73 95 08/30/19 08:50 95 08/30/19 03:42 97.5 F L 73 16 127/70 97 Weight Admit Weight 126 lb 12.8 oz Weight 126 lb 12.8 oz I&O: 08/29/19 08/30/19 08/31/19 06:59 06:59 06:59 Intake Total 2725 625 360 Output Total 1125 Balance 2725 -500 360 Result Diagrams: 08/30/19 04:44 08/30/19 04:44 Hospitalist ROS - Medication Medications: Active Medications Generic Name Dose Route Start Last Admin Trade Name Freq PRN Reason Stop Dose Admin Enoxaparin Sodium 30 mg 08/26/19 09:00 08/30/19 09:40 Lovenox SC 30 mg 0900 JANNETH Administration Potassium Chloride/Dextrose/Sod Cl 1,000 mls @ 80 mls/hr 08/29/19 13:15 08/30 13:01 D5 1/2 Ns W/20 Meq Kcl IV 1,000 mls .[id number] JANNETH Administration Acetaminophen 1,000 mg/ Device 100 mls @ 400 mls/hr 08/30/19 10:09 08/30/19 12:54 IVPB 08/31/19 10:10 100 mls Q6H PRN Administration Fever/Mild Pain Morphine Sulfate 2 mg 08/25/19 18:43 08/29/19 17:12 Morphine SLOW IVP 2 mg Q4H PRN Administration Moderate Pain (4-6) Pantoprazole Sodium 40 mg 08/30/19 09:00 08/30/19 09:40 Protonix IVP 40 mg DAILY JANNETH Administration - Exam Eye: PERRL, anicteric sclera Heart: RRR, no murmur, no gallops, no rubs, normal peripheral pulses Respiratory: CTAB, no wheezes, no rales, no ronchi, normal chest expansion, no tachypnea, normal percussion Gastrointestinal: soft, non-distended, normal bowel sounds, no palpable masses, no hepatomegaly, tender to palpation (+ Mild diffuse tenderness, colostomy present) Extremities: no cyanosis, no clubbing, no edema Hosp A/P (1) Small bowel obstruction Code(s): K56.609 - UNSP INTESTNL OBST, UNSP TO PARTIAL VERSUS COMPLETE OBST Status: Acute (2) Hypertension Code(s): I10 - ESSENTIAL (PRIMARY) HYPERTENSION Status: Acute (3) Hypothyroidism Code(s): E03.9 - HYPOTHYROIDISM, UNSPECIFIED Status: Acute - Plan * Small Bowel obstruction- She is s/p Gastrojejunostomy and Colostomy- now tolerating clear liquids * Recurrent Gastric cancer- discussed with Oncology- she is not a candidate for chemotherapy. The patient is contemplating Hospice * Hypothyroidism- will transition back to her oral dose * Hypokalemia- continue to replace * HTN- will re-start her antihypertensives in a stepwise fashion- beginning with Atenolol * Will screen for residential due to deconditioning
--- NOTE | 2019-08-30 19:05 | PRG ---
DATE OF SERVICE: 08/30/2019 SUBJECTIVE: Ms. Issa had a diverting colostomy and a redo of her gastrojejunostomy secondary to obstruction. 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 OBJECTIVE: VITAL SIGNS: Temperature is 98.6, pulse 83, and blood pressure 147/77. ABDOMEN: Soft and nontender. Her ostomy has some output. The ostomy in the right upper quadrant appears healthy. LABORATORY DATA: White count 5.2, hemoglobin 10.3, platelet count 209, 28% bands. Sodium 133, potassium 3.6, BUN and creatinine are 15 and 0.7. 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 Hopefully, the patient will recover quickly from the surgery and will go home probably in a palliative care state. Hopefully, she can get some adequate intake to make herself comfortable. Job ID: [id number]
[2019-08-30] MEDS ORDERED: Sodium Chloride 0.9% 1,000 ML IV SCH (19:15)
--- NOTE | 2019-08-30 22:20 | OP ---
DATE OF PROCEDURE: 08/29/2019 PREOPERATIVE DIAGNOSES: 1. Malignant obstruction of gastric outlet. 2. Malignant obstruction of transverse colon. 3. History of gastric cancer with node positive margin positive resection in [place], status post adjuvant chemotherapy. PROCEDURES: 1. Exploratory laparotomy with loop gastrojejunostomy (palliative). 2. Loop ascending colostomy (palliative). ANESTHESIA: General. ESTIMATED BLOOD LOSS: 50 mL. COMPLICATIONS: None. FINDINGS: There was obvious malignancy in the mid abdomen in the area of the Que limb and transverse colon. There was peritoneal seeding. There was no bulky carcinomatosis. DESCRIPTION OF PROCEDURE: The operating was taken to the operating room and laid supine on the operating room table. After general anesthetic was obtained, the Morales was placed and the abdomen was prepped and draped in a sterile fashion. Midline incision was made. Cautery was dissected down into the abdominal cavity carefully. A Bookwalter retractor was placed. There was obvious malignancy in the mid abdomen. There was peritoneal seeding. There were implants of malignancy along the transverse colon and small intestine in parts. There were small areas of metastatic malignancy nodules over the stomach proximal to the gastrojejunostomy. There was evidence of previous Que-en-Y reconstruction after gastrectomy with a J-tube above the afferent limb just distal to where the J-tube was affixed to the posterior abdominal wall. The loop of the jejunum was able to be brought up and around into the side of the more proximal stomach. A gastrotomy and enterotomy are made and a [id number] anastomosis using a ARTHUR stapler was done. The common enterotomy was closed transversely using Vicryl suture in 2 layers. The anastomosis appears patent. There does not appear to be a twist of the mesentery due to this. The ascending and proximal transverse colon was significantly dilated and there was obvious malignant obstruction in the transverse colon. Ellipse of skin was taken down the right lower quadrant. A cruciate incision was made in the fascia and a muscle-splitting opening was made. The cecum was able to be brought up through here in a loop fashion with no tension held in place outside the abdomen using a Ricky. All instrument counts, needle counts, and lap counts were correct. One of the areas of peritoneal seeding was removed sharply and sent to Path for final diagnosis. The midline fascia was closed using #1 PDS from the top and bottom and tied in the middle. Subcutaneous tissues were irrigated and closed using 3-0 Vicryl, 4-0 Monocryl, and Dermabond. The loop colostomy was then matured in the usual fashion using 3-0 Vicryl. The loop colostomy could not be brought up with a bar as usual due to the mesentery being rigid and firm in the abdomen from the recurrent malignancy. A colostomy device was placed. The patient was sent to Recovery in stable condition. All instrument counts, needle counts, and lap counts were correct. Job ID: [id number]
[2019-08-31] MEDS: D5 1/2 NS w/20 mEq KCL 1,000 ML IV SCH ×2 (03:17→08:22)
[2019-08-31] MEDS: Levothyroxine 150 MCG TAB PO SCH (05:42)
[2019-08-31] MEDS ORDERED: Levothyroxine 100 MCG SDV IVP SCH (06:00)
[2019-08-31 06:32] LABS: Hemoglobin 10.5 g/dL (12.0-16.0); Mean Corpuscular HGB CONC 32.8 g/dL (32.0-36.0); Mean Corpuscular Hemoglobin 35.5 pg (27.0-31.0); Platelet Count 201 thou/uL (130-400); RBC Distribution Width 12.4 % (11.5-14.5); Red Blood Cell (RBC) Count 2.95 mill/uL (4.20-5.40); White Blood Cell (WBC) Count 3.6 thou/uL (4.8-10.8)
[2019-08-31 06:44] LABS: Anion Gap 7 mmol/L (10-20); BUN (Urea Nitrogen) 16 mg/dL (9.8-20.1); Calc. Creatinine Clearance 53 mL/min (70-130); Calcium 7.8 mg/dL (7.8-10.44); Carbon Dioxide 21 mmol/L (23-31); Chloride 104 mmol/L (98-107); Estimated GFR-MDRD 86; Glucose 106 mg/dL (83-110); Potassium 3.2 mmol/L (3.5-5.1); Sodium 129 mmol/L (136-145)
--- NOTE | 2019-08-31 07:00 | PDOC.GSPN ---
Surgery Progress Note: Subj - Subjective Patient reports: no new complaints Narrative: Ms. Issa is a 89 year old female with a history of metastatic gastric carcinoma who is POD 2 from gastrojejunostomy and colostomy to help resolve obstruction with recurrent nausea and vomiting. She is doing very well today, slept well, and only complains of a little nausea. Pain is well controlled (rated at 1/10) and she was able to tolerate liquids yesterday without issues. She walked once yesterday in the hallway and plans to walk more today. She has been using the spirometer intermittently. Morales is in place, with which she reports no discomfort (nurse reports better urine output today). Patient denies vomiting, fevers, chills, dizziness, and reflux. Surgery Progress Note: Obj - Vital signs Vital signs: Vital Signs - Most Recent Temp Pulse Resp BP Pulse Ox 98.1 F 81 16 152/79 H 91 L 08/31/19 03:53 08/31/19 03:53 08/31/19 03:53 08/31/19 03:53 08/31/19 03:53 - Physical Exam General: no distress ENT: normal mucosa Neck: no lymphadectomy, no masses Cardiovascular: regular rate and rhythm, no murmur Respiratory: clear to auscultation, normal respiratory effort, breath sounds present (No wheezes or rales.) Abdomen: soft, non tender, nondistended, positive bowel sounds Integumentary: no rash Wound: dressing clean,dry,intact, healing well (Colostomy stoma is non- erythematous without purulent drainage. Bowel contents are present in colostomy bag. Midline incision is healing well without erythema, induration, or drainage. ) Surgery Progress Note: Results - Labs Result Diagrams: 08/31/19 05:32 08/31/19 05:32 Lab results: Laboratory Results - last 24 hr 08/31/19 08/31/19 05:32 05:32 WBC 3.6 L RBC 2.95 L Hgb 10.5 L Hct 31.9 L MCV 108.0 H MCH 35.5 H MCHC 32.8 RDW 12.4 Plt Count 201 MPV 7.0 L Sodium 129 L Potassium 3.2 L Chloride 104 Carbon Dioxide 21 L Anion Gap 7 L BUN 16 Creatinine 0.65 Estimated GFR (MDRD) 86 Glucose 106 Calcium 7.8 Surgery Progress Note: A/P - Plan Plan: Ms. Issa is a 89 year old female with a history of metastatic gastric carcinoma who is POD 2 from gastrojejunostomy and colostomy to help resolve obstruction with recurrent nausea and vomiting. Gastrojejunostomy and Colostomy -Continue ice chips and clear liquid diet. May advance to thick liquids later today. -Encourage ambulation as tolerated. Aim to walk at least 2 times today. -Ensure patient understanding with colostomy care -Plan for senior care placement after hospital stay -Hospice consult HTN -Atenolol PO started as per Dr. Lutz Hypothyroidism -Levothyroxine PO started as per Dr. Lutz Addendum - Physician - Physician Attestation Date/Time: 08/31/19 1430 I personally performed or re-performed the physical examination and medical decision making. I have verified all student documentation or findings, including history, physical exam and/or medical decision making. Advance to full liquids Add lortab elixir prn pain She will need senior care
[2019-08-31 07:14] LABS: Band 59 % (5-11); Bite Cells SLIGHT = 2-5 cells (100X) (0-1/hpf); Eosinophils 1 % (0-10); Helmet Cells SLIGHT = 2-5 cells (100X) (0-1/hpf); Lymphocytes 7 % (21-51); MDiff Complete? YES; Macrocytosis MODERATE=16-30 cells (100X) (0-5/hpf); Monocytes 14 % (0-10); Neutrophil 13 % (42-75); Platelet Morphology Comment Appears Adequate; Polychromasia SLIGHT = 2-3 cells (100X) (0-2/hpf); Reactive Lymphocytes 6 % (0-10); Schistocytes SLIGHT = 2-5 cells (100X) (0-1/hpf)
[2019-08-31] MEDS: Atenolol 50 MG TAB PO SCH (08:21)
[2019-08-31] MEDS: Pantoprazole 40 MG VIAL IVP SCH (08:21)
[2019-08-31] MEDS: Enoxaparin Sodium 30 MG/0.3 ML SYRINGE SC SCH (08:22)
[2019-08-31] MEDS: Ondansetron PF 4 MG/2 ML Vial IVP PRN (10:21)
[2019-08-31] MEDS ORDERED: Acetaminophen 325 MG TAB PO PRN (13:53)
--- NOTE | 2019-08-31 14:01 | PDOC.HOSPP ---
- Subjective Encounter Date: 08/31/19 Encounter Time: 13:59 Subjective: Ms. Issa was seen today in follow-up of recurrent gastric cancer, and small bowel obstruction. She does not have any new complaints. today. - Objective Vital Signs & Weight: Vital Signs (12 hours) Temp Pulse Resp BP BP Pulse Ox 08/31/19 11:58 98 F 72 14 146/76 H 98 08/31/19 08:21 85 145/75 H 08/31/19 08:20 96 08/31/19 08:16 98.5 F 85 16 145/75 H 96 08/31/19 03:53 98.1 F 81 16 152/79 H 91 L Weight Admit Weight 126 lb 12.8 oz Weight 126 lb 12.8 oz I&O: 08/30/19 08/31/19 09/01/19 06:59 06:59 06:59 Intake Total 625 1660 200 Output Total 1125 1675 Balance -500 -15 200 Result Diagrams: 08/31/19 05:32 08/31/19 05:32 Hospitalist ROS - Medication Medications: Active Medications Generic Name Dose Route Start Last Admin Trade Name Freq PRN Reason Stop Dose Admin Atenolol 50 mg 08/31/19 09:00 08/31/19 08:21 Tenormin PO 50 mg QAM JANNETH Administration Enoxaparin Sodium 30 mg 08/26/19 09:00 08/31/19 08:22 Lovenox SC 30 mg 0900 JANNETH Administration Levothyroxine Sodium 150 mcg 08/31/19 06:00 08/31/19 05:42 Synthroid PO 150 mcg 0600 JANNETH Administration Morphine Sulfate 2 mg 08/25/19 18:43 08/29/19 17:12 Morphine SLOW IVP 2 mg Q4H PRN Administration Moderate Pain (4-6) Ondansetron HCl 4 mg 08/29/19 13:15 08/31/19 10:21 Zofran IVP 4 mg Q6H PRN Administration Nausea/Vomiting Pantoprazole Sodium 40 mg 08/30/19 09:00 08/31/19 08:21 Protonix IVP 40 mg DAILY JANNETH Administration - Exam Eye: PERRL Heart: RRR, no murmur, no gallops, no rubs, normal peripheral pulses Respiratory: CTAB, no wheezes, no rales, no ronchi, normal chest expansion, no tachypnea Gastrointestinal: soft, non-tender, non-distended, normal bowel sounds, no palpable masses, no hepatomegaly, no splenomegaly Extremities: no cyanosis, no clubbing, no edema Psychiatric: normal affect, normal behavior, A&O x 3 Hosp A/P (1) Small bowel obstruction Code(s): K56.609 - UNSP INTESTNL OBST, UNSP TO PARTIAL VERSUS COMPLETE OBST Status: Acute (2) Hypertension Code(s): I10 - ESSENTIAL (PRIMARY) HYPERTENSION Status: Acute (3) Hypothyroidism Code(s): E03.9 - HYPOTHYROIDISM, UNSPECIFIED Status: Acute - Plan * Small Bowel obstruction- She is s/p Gastrojejunostomy and Colostomy- her diet has been advanced to full liquids * Recurrent Gastric cancer- discussed with Oncology- she is not a candidate for chemotherapy. The patient is contemplating Hospice * Hyponatremia- will change her fluids to an isotonic solution, and hopefully as she takes in more p.o. this should improve * Hypothyroidism- continue Synthroid * HTN- will re-start her antihypertensives in a stepwise fashion- beginning with Atenolol * Deconditioning- she is being screened for long-term
[2019-08-31] MEDS: Dextrose 5 % And 0.9 % NaCl 1,000 ML IV SCH ×2 (15:00→23:05)
[2019-08-31] MEDS: Hydrocodone-Acetamin 15 ML UDCUP PO PRN (15:00)
--- NOTE | 2019-08-31 16:57 | PRG ---
DATE OF SERVICE: 08/31/2019 SUBJECTIVE: Ms. Issa has had no nausea or vomiting. She is tolerating little bit of liquids. She is taking some pain medicine for her epigastric pain. Her ostomy is functioning well. OBJECTIVE: VITAL SIGNS: Temperature is 98.2, pulse is 85, blood pressure is 155/81. ABDOMEN: Soft and nontender. Incision healing well. LABORATORY DATA: White count 3.6, hemoglobin 10.5, platelet count 201. Sodium 129, potassium 3.2, BUN and creatinine are 16 and 0.65. 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 RECOMMENDATION: Advance diet as tolerated. The patient reports she is going to try to go to [facility] next week. Palliative care would be appropriate. We will follow from a distance. If I can be of any further assistance in the patient's care, please do not hesitate to contact me. Job ID: [id number]
[2019-09-01 05:53] LABS: Anion Gap 7 mmol/L (10-20); BUN (Urea Nitrogen) 15 mg/dL (9.8-20.1); Calc. Creatinine Clearance 49 mL/min (70-130); Calcium 8.4 mg/dL (7.8-10.44); Carbon Dioxide 25 mmol/L (23-31); Chloride 104 mmol/L (98-107); Estimated GFR-MDRD 78; Glucose 112 mg/dL (83-110); Potassium 3.7 mmol/L (3.5-5.1); Sodium 132 mmol/L (136-145)
[2019-09-01] MEDS: Levothyroxine 150 MCG TAB PO SCH (06:31)
[2019-09-01] MEDS: Hydrocodone-Acetamin 15 ML UDCUP PO PRN ×2 (06:35→12:37)
[2019-09-01] MEDS: Ondansetron PF 4 MG/2 ML Vial IVP PRN ×2 (06:36→12:37)
--- NOTE | 2019-09-01 08:58 | PRG ---
DATE OF SERVICE: 09/01/2019 SUBJECTIVE: Ms. Issa has more nausea today. She still has good output in her ostomy bag. OBJECTIVE: VITAL SIGNS: Her vital signs are stable. ABDOMEN: Slightly more distended. Her wounds are healing well. The colostomy mucosa is pink. ASSESSMENT: Status post gastrojejunostomy and diverting loop colostomy. PLAN: My recommendation would be to keep her here until she is at least able to tolerate a full liquid diet. I suspect she will be ready to go to halfway on Tuesday. Job ID: [id number]
[2019-09-01] MEDS: Enoxaparin Sodium 30 MG/0.3 ML SYRINGE SC SCH (10:51)
[2019-09-01] MEDS: Pantoprazole 40 MG VIAL IVP SCH (10:52)
[2019-09-01] MEDS: Atenolol 50 MG TAB PO SCH (10:59)
[2019-09-01] MEDS: Dextrose 5 % And 0.9 % NaCl 1,000 ML IV SCH (13:31)
[2019-09-01] MEDS: Mag-Al 1200 mg/1200 mg/30 ML UDCUP PO PRN (17:40)
[2019-09-01] MEDS ORDERED: Calcium Carbonate 500 MG ChewTAB PO PRN (20:39)
--- NOTE | 2019-09-01 20:43 | PDOC.HOSPP ---
- Subjective Encounter Date: 09/01/19 Encounter Time: 13:00 Subjective: pt up in bed complains of pain to her abdomen. - Objective Vital Signs & Weight: Vital Signs (12 hours) Temp Pulse Resp BP BP Pulse Ox 09/01/19 19:55 131/72 09/01/19 19:38 97.8 F 77 16 96/55 L 96 09/01/19 16:08 97.3 F L 76 14 108/61 96 09/01/19 11:03 98 F 78 18 115/70 97 09/01/19 10:59 73 102/62 Weight Admit Weight 126 lb 12.8 oz Weight 126 lb 12.8 oz I&O: 08/31/19 09/01/19 09/02/19 06:59 06:59 06:59 Intake Total 1660 2480 1350 Output Total 1675 1675 675 Balance -15 805 675 Result Diagrams: 08/31/19 05:32 09/01/19 05:10 Hospitalist ROS - Review of Systems Cardiovascular: denies: chest pain, palpitations, orthopnea, paroxysmal noc. dyspnea, edema, light headedness, other Gastrointestinal: reports: abdominal pain Genitourinary: denies: dysuria, frequency, incontinence, hematuria, retention, other - Medication Medications: Active Medications Generic Name Dose Route Start Last Admin Trade Name Freq PRN Reason Stop Dose Admin Hydrocodone Bitart/Acetaminophen 15 ml 08/31/19 14:31 09/01/19 12:37 Hydrocodone-Apap 7.5-325/15 PO 15 ml Q6H PRN Administration Pain Al Hydroxide/Mg Hydroxide 30 ml 09/01/19 17:32 09/01/19 17:40 Maalox PO 30 ml DAILYPRN PRN Administration Heartburn or Indigestion Atenolol 50 mg 08/31/19 09:00 09/01/19 10:59 Tenormin PO Not Given QAM JANNETH Enoxaparin Sodium 30 mg 08/26/19 09:00 09/01/19 10:51 Lovenox SC 30 mg 0900 JANNETH Administration Dextrose/Sodium Chloride 1,000 mls @ 75 mls/hr 08/31/19 09:15 09/01/19 13:31 D5 0.9% Ns IV 1,000 mls .[id number] JANNETH Administration Levothyroxine Sodium 150 mcg 08/31/19 06:00 09/01/19 06:31 Synthroid PO 150 mcg 0600 JANNETH Administration Morphine Sulfate 2 mg 08/25/19 18:43 08/29/19 17:12 Morphine SLOW IVP 2 mg Q4H PRN Administration Moderate Pain (4-6) Ondansetron HCl 4 mg 08/29/19 13:15 09/01/19 12:37 Zofran IVP 4 mg Q6H PRN Administration Nausea/Vomiting Pantoprazole Sodium 40 mg 08/30/19 09:00 09/01/19 10:52 Protonix IVP 40 mg DAILY JANNETH Administration - Exam ENT: negative: normocephalic atraumatic, no oropharyngeal lesions, moist mucosa , dry oral mucosa Neck: negative: supple, symmetric, no JVD, no thyromegaly, no lymphadenopathy, no carotid bruit, JVD Heart: negative: RRR, no murmur, no gallops, no rubs, normal peripheral pulses, irregular, diminshed peripheral pulses, murmur present, II/IV, III/IV Respiratory: negative: CTAB, no wheezes, no rales, no ronchi, normal chest expansion, no tachypnea, normal percussion, rales, rhonchi, tachypneic, wheezes Gastrointestinal: soft Gastrointestinal - other findings: colostomy Hosp A/P (1) Gastric malignant neoplasm Status: Acute (2) Hypertension Code(s): I10 - ESSENTIAL (PRIMARY) HYPERTENSION Status: Acute (3) Hypothyroidism Code(s): E03.9 - HYPOTHYROIDISM, UNSPECIFIED Status: Acute (4) Small bowel obstruction Code(s): K56.609 - UNSP INTESTNL OBST, UNSP TO PARTIAL VERSUS COMPLETE OBST Status: Acute (5) Dehydration, moderate Code(s): E86.0 - DEHYDRATION Status: Acute - Plan will add tums for indigestion. will continue current tx. will advance diet as tolerated. possible hospice.
[2019-09-02] MEDS: Dextrose 5 % And 0.9 % NaCl 1,000 ML IV SCH ×2 (02:17→13:50)
[2019-09-02] MEDS: Ondansetron PF 4 MG/2 ML Vial IVP PRN ×2 (02:20→19:21)
[2019-09-02] MEDS: Mag-Al 1200 mg/1200 mg/30 ML UDCUP PO PRN ×2 (03:34→16:09)
[2019-09-02] MEDS: Levothyroxine 150 MCG TAB PO SCH (06:19)
[2019-09-02] MEDS: Hydrocodone-Acetamin 15 ML UDCUP PO PRN ×2 (06:20→19:20)
[2019-09-02] MEDS: Pantoprazole 40 MG VIAL IVP SCH (08:41)
[2019-09-02] MEDS: Enoxaparin Sodium 30 MG/0.3 ML SYRINGE SC SCH (08:42)
[2019-09-02] MEDS: Atenolol 50 MG TAB PO SCH (08:42)
[2019-09-02] MEDS ORDERED: Sodium Chloride 0.9% 1,000 ML IV SCH (16:00)
--- NOTE | 2019-09-02 16:12 | PRG ---
DATE OF SERVICE: 09/02/2019 SUBJECTIVE: Ms. Issa is having more difficulty with p.o. intake today. This was at the same time having high output from her ileostomy. OBJECTIVE: VITAL SIGNS: Her vital signs are stable. Her urine output is marginal. ABDOMEN: Her abdomen is soft. The wounds are healing well. She has liquidy stool in her bag. ASSESSMENT: Gastric cancer, status post gastrojejunostomy and diverting colostomy. PLAN: We will start TPN. I do think she needs 2 to 3 more days for this gastrojejunostomy to start working better. Some of this maybe the malignancy, but some of it may just be typical postop swelling. We will start Lomotil for her high-output ileostomy once her bowel function returns. Job ID: [id number]
[2019-09-02] MEDS: SODIUM CHLORIDE IV SCH (22:11)
[2019-09-02] MEDS: FAT EMULSION IV SCH (22:11)
[2019-09-02] MEDS: POTASSIUM ACETATE IV SCH (22:11)
[2019-09-02] MEDS: [UNRECOGNIZED DRUG - OTHER] IV SCH (22:11)
[2019-09-03] MEDS: Dextrose 5 % And 0.9 % NaCl 1,000 ML IV SCH ×2 (00:31→14:11)
[2019-09-03] MEDS: Ondansetron PF 4 MG/2 ML Vial IVP PRN ×4 (02:35→22:30)
[2019-09-03] MEDS: Levothyroxine 150 MCG TAB PO SCH (06:12)
[2019-09-03] MEDS: Promethazine HCl 25 MG/ML VIAL IM PRN ×3 (06:22→17:48)
[2019-09-03] MEDS: Enoxaparin Sodium 30 MG/0.3 ML SYRINGE SC SCH (07:56)
[2019-09-03] MEDS: Pantoprazole 40 MG VIAL IVP SCH (07:56)
[2019-09-03] MEDS: Atenolol 50 MG TAB PO SCH (07:56)
--- NOTE | 2019-09-03 08:10 | PDOC.GSPN ---
Surgery Progress Note: Subj - Subjective Narrative: Patient is an 89 yof POD 9 complaining of annoying abdominal pain and vomiting overnight. She vomited 4-5 times overnight, and describes the consistency as "wheat broth" in appearance. She also complains of continued abdominal pain she rates as 3/10 that is diffuse across the abdomen. It is described as a generalized ache, that is unchanged from her initial presentation. Nothing has made the pain worse. Zofran has helped alleviate the nausea. She denies sharp pain, pain or irritation at incision site, chest pain, shortness of breath or hematemesis. Surgery Progress Note: Obj - Vital signs Vital signs: Vital Signs - Most Recent Temp Pulse Resp BP Pulse Ox 98.0 F 73 16 160/77 H 99 09/03/19 07:41 09/03/19 07:56 09/03/19 07:41 09/03/19 07:56 09/03/19 07:41 - Physical Exam General: other (Patient appears fatigued lying in hospital bed. No evidence of acute distress.) Cardiovascular: regular rate and rhythm Respiratory: clear to auscultation Abdomen: soft, non tender Wound: healing well Surgery Progress Note: Results - Labs Result Diagrams: 08/31/19 05:32 09/01/19 05:10 Surgery Progress Note: A/P - Problem (1) Gastric malignant neoplasm Current Visit: Yes Status: Acute - Plan Plan: Continue TPN with anti-nausea medication as needed. Addendum - Physician - Physician Attestation Date/Time: 09/03/19 1059 I personally performed or re-performed the physical examination and medical decision making. I have verified all student documentation or findings, including history, physical exam and/or medical decision making.
--- NOTE | 2019-09-03 10:17 | PDOC.HOSPP ---
- Subjective Encounter Date: 09/02/19 Encounter Time: 10:30 Subjective: pt up in bed unable to eat. - Objective Vital Signs & Weight: Vital Signs (12 hours) Temp Pulse Resp BP BP Pulse Ox 09/03/19 07:56 73 160/77 H 09/03/19 07:41 98.0 F 73 16 160/77 H 99 09/03/19 03:57 98.1 F 85 16 144/73 H 97 09/02/19 23:57 97.9 F 70 16 115/59 L 96 Weight Admit Weight 126 lb 12.8 oz Weight 126 lb 12.8 oz I&O: 09/02/19 09/03/19 09/04/19 06:59 06:59 06:59 Intake Total 2490 4776 Output Total 9253 1245 Balance -285 1270 Result Diagrams: 08/31/19 05:32 09/01/19 05:10 Hospitalist ROS - Review of Systems Respiratory: denies: cough, dry, shortness of breath, hemoptysis, SOB with excertion, pleuritic pain, sputum, wheezing, other Cardiovascular: denies: chest pain, palpitations, orthopnea, paroxysmal noc. dyspnea, edema, light headedness, other Gastrointestinal: denies: nausea, vomiting, abdominal pain, diarrhea, constipation, melena, hematochezia, other - Medication Medications: Active Medications Generic Name Dose Route Start Last Admin Trade Name Freq PRN Reason Stop Dose Admin Hydrocodone Bitart/Acetaminophen 15 ml 08/31/19 14:31 09/02/19 19:20 Hydrocodone-Apap 7.5-325/15 PO 15 ml Q6H PRN Administration Pain Al Hydroxide/Mg Hydroxide 30 ml 09/01/19 17:32 09/02/19 16:09 Maalox PO 30 ml DAILYPRN PRN Administration Heartburn or Indigestion Atenolol 50 mg 08/31/19 09:00 09/03/19 07:56 Tenormin PO 50 mg QAM JANNETH Administration Calcium Carbonate 1,000 mg 09/01/19 20:39 09/02/19 19:21 Tums PO 1,000 mg Q4H PRN Administration Heartburn or Indigestion Enoxaparin Sodium 30 mg 08/26/19 09:00 09/03/19 07:56 Lovenox SC 30 mg 0900 JANNETH Administration Dextrose/Sodium Chloride 1,000 mls @ 75 mls/hr 08/31/19 09:15 09/03/19 00:31 D5 0.9% Ns IV 1,000 mls .[id number] JANNETH Administration Fat Emulsion Intravenous 250 2,282.463 mls @ 95.103 mls/hr 09/02/19 22:00 22:11 ml/ Sodium Chloride 20 meq/ IV 2,282.463 mls Potassium Acetate 20 meq/ 2200 JANNETH Administration Magnesium Sulfate 10 meq/ Multivitamins 10 ml/ Chromium/ Copper/Manganese/Seleni/Zn 5 ml/ Amino Acids/Electrolytes Levothyroxine Sodium 150 mcg 08/31/19 06:00 09/03/19 06:12 Synthroid PO 150 mcg 0600 JANNETH Administration Morphine Sulfate 2 mg 08/25/19 18:43 08/29/19 17:12 Morphine SLOW IVP 2 mg Q4H PRN Administration Moderate Pain (4-6) Ondansetron HCl 4 mg 08/29/19 13:15 09/03/19 09:39 Zofran IVP 4 mg Q6H PRN Administration Nausea/Vomiting Pantoprazole Sodium 40 mg 08/30/19 09:00 09/03/19 07:56 Protonix IVP 40 mg DAILY JANNETH Administration Promethazine HCl 12.5 mg 08/29/19 13:15 09/03/19 06:22 Phenergan IM 12.5 mg Q4H PRN Administration Nausea/Vomiting Sodium Chloride 10 ml 08/29/19 13:15 09/02/19 08:42 Flush - Normal Saline IVF 10 ml PRN PRN Administration Saline Flush - Exam ENT: normocephalic atraumatic Heart: RRR, no murmur, no gallops Respiratory: CTAB, no wheezes, no rales Gastrointestinal: soft, non-tender, non-distended Hosp A/P (1) Gastric malignant neoplasm Status: Acute (2) Hypertension Code(s): I10 - ESSENTIAL (PRIMARY) HYPERTENSION Status: Acute (3) Hypothyroidism Code(s): E03.9 - HYPOTHYROIDISM, UNSPECIFIED Status: Acute (4) Small bowel obstruction Code(s): K56.609 - UNSP INTESTNL OBST, UNSP TO PARTIAL VERSUS COMPLETE OBST Status: Acute (5) Dehydration, moderate Code(s): E86.0 - DEHYDRATION Status: Acute - Plan will add tums for indigestion. will continue current tx. will advance diet as tolerated. possible hospice. 09/02 spoke with surgery yest in regards to pt unable to eat and high output from her ostomy. will start TPN for nutrition, pt wants to eat but feels full after she eats a bit. anticipate her symptoms will improve per surgery.
[2019-09-03] MEDS: Morphine 2 MG/ML SYRINGE SLOW IVP PRN ×2 (12:12→17:48)
--- NOTE | 2019-09-03 15:06 | PDOC.HOSPP ---
- Subjective Encounter Date: 09/03/19 Encounter Time: 09:00 Subjective: Pt up in bed very nauseated. - Objective Vital Signs & Weight: Vital Signs (12 hours) Temp Pulse Resp BP BP Pulse Ox 09/03/19 11:50 97.6 F 70 14 158/72 H 97 09/03/19 07:56 73 160/77 H 09/03/19 07:41 98.0 F 73 16 160/77 H 99 09/03/19 03:57 98.1 F 85 16 144/73 H 97 Weight Admit Weight 126 lb 12.8 oz Weight 126 lb 12.8 oz I&O: 09/02/19 09/03/19 09/04/19 06:59 06:59 06:59 Intake Total 2490 4761 Output Total 0046 9815 Balance -285 1270 Result Diagrams: 08/31/19 05:32 09/01/19 05:10 Hospitalist ROS - Review of Systems Respiratory: denies: cough, dry, shortness of breath, hemoptysis, SOB with excertion, pleuritic pain, sputum, wheezing, other Cardiovascular: denies: chest pain, palpitations, orthopnea, paroxysmal noc. dyspnea, edema, light headedness, other Gastrointestinal: reports: nausea, abdominal pain - Medication Medications: Active Medications Generic Name Dose Route Start Last Admin Trade Name Freq PRN Reason Stop Dose Admin Hydrocodone Bitart/Acetaminophen 15 ml 08/31/19 14:31 09/02/19 19:20 Hydrocodone-Apap 7.5-325/15 PO 15 ml Q6H PRN Administration Pain Al Hydroxide/Mg Hydroxide 30 ml 09/01/19 17:32 09/02/19 16:09 Maalox PO 30 ml DAILYPRN PRN Administration Heartburn or Indigestion Atenolol 50 mg 08/31/19 09:00 09/03/19 07:56 Tenormin PO 50 mg QAM JANNETH Administration Calcium Carbonate 1,000 mg 09/01/19 20:39 09/02/19 19:21 Tums PO 1,000 mg Q4H PRN Administration Heartburn or Indigestion Enoxaparin Sodium 30 mg 08/26/19 09:00 09/03/19 07:56 Lovenox SC 30 mg 0900 JANNETH Administration Dextrose/Sodium Chloride 1,000 mls @ 75 mls/hr 08/31/19 09:15 09/03/19 14:11 D5 0.9% Ns IV Not Given .[id number] [facility] Fat Emulsion Intravenous 250 2,282.463 mls @ 95.103 mls/hr 09/02/19 22:00 22:11 ml/ Sodium Chloride 20 meq/ IV 2,282.463 mls Potassium Acetate 20 meq/ 2200 JANNETH Administration Magnesium Sulfate 10 meq/ Multivitamins 10 ml/ Chromium/ Copper/Manganese/Seleni/Zn 5 ml/ Amino Acids/Electrolytes Levothyroxine Sodium 150 mcg 08/31/19 06:00 09/03/19 06:12 Synthroid PO 150 mcg 0600 JANNETH Administration Morphine Sulfate 2 mg 08/25/19 18:43 09/03/19 12:12 Morphine SLOW IVP 2 mg Q4H PRN Administration Moderate Pain (4-6) Ondansetron HCl 4 mg 08/29/19 13:15 09/03/19 09:39 Zofran IVP 4 mg Q6H PRN Administration Nausea/Vomiting Pantoprazole Sodium 40 mg 08/30/19 09:00 09/03/19 07:56 Protonix IVP 40 mg DAILY JANNETH Administration Promethazine HCl 12.5 mg 08/29/19 13:15 09/03/19 12:12 Phenergan IM 12.5 mg Q4H PRN Administration Nausea/Vomiting Sodium Chloride 10 ml 08/29/19 13:15 09/02/19 08:42 Flush - Normal Saline IVF 10 ml PRN PRN Administration Saline Flush - Exam Neck: supple, symmetric Heart: RRR, no murmur Respiratory: CTAB, no wheezes Gastrointestinal: soft, non-distended, normal bowel sounds Gastrointestinal - other findings: ostomy to right side of abd Hosp A/P (1) Gastric malignant neoplasm Status: Acute (2) Hypertension Code(s): I10 - ESSENTIAL (PRIMARY) HYPERTENSION Status: Acute (3) Hypothyroidism Code(s): E03.9 - HYPOTHYROIDISM, UNSPECIFIED Status: Acute (4) Small bowel obstruction Code(s): K56.609 - UNSP INTESTNL OBST, UNSP TO PARTIAL VERSUS COMPLETE OBST Status: Acute (5) Dehydration, moderate Code(s): E86.0 - DEHYDRATION Status: Acute - Plan will add tums for indigestion. will continue current tx. will advance diet as tolerated. possible hospice. 09/02 spoke with surgery yest in regards to pt unable to eat and high output from her ostomy. will start TPN for nutrition, pt wants to eat but feels full after she eats a bit. anticipate her symptoms will improve per surgery. 09/03 pt started tpn, pt is nauseated on antiemetic will monitor.
[2019-09-03] MEDS ORDERED: Dextrose 5% in Water 1,000 ML IV PRN (18:08)
[2019-09-03] MEDS ORDERED: Dextrose 50% Abboject 50 ML SYRINGE SLOW IVP PRN (18:08)
[2019-09-03] MEDS: HumaLOG 300 UNITS/3 ML VIAL SC PRN (18:16)
[2019-09-03] MEDS: SODIUM CHLORIDE IV SCH (22:31)
[2019-09-03] MEDS: POTASSIUM ACETATE IV SCH (22:31)
[2019-09-03] MEDS: [UNRECOGNIZED DRUG - OTHER] IV SCH (22:31)
[2019-09-03] MEDS: FAT EMULSION IV SCH (22:31)
[2019-09-03] MEDS ORDERED: Pantoprazole 40 MG VIAL IVP SCH (22:45)
[2019-09-03] MEDS: Scopolamine 1.5 mg/72 hour Patch TOP SCH (23:08)
[2019-09-04] MEDS: Promethazine HCl 25 MG/ML VIAL IM PRN ×2 (00:30→05:49)
[2019-09-04] MEDS: HumaLOG 300 UNITS/3 ML VIAL SC PRN ×4 (00:30→17:20)
[2019-09-04] MEDS: Dextrose 5 % And 0.9 % NaCl 1,000 ML IV SCH ×3 (00:43→22:20)
[2019-09-04] MEDS: Morphine 2 MG/ML SYRINGE SLOW IVP PRN (05:50)
[2019-09-04] MEDS: Levothyroxine 150 MCG TAB PO SCH (05:51)
[2019-09-04 06:04] LABS: Anion Gap 12 mmol/L (10-20); BUN (Urea Nitrogen) 12 mg/dL (9.8-20.1); Calc. Creatinine Clearance 46 mL/min (70-130); Calcium 8.6 mg/dL (7.8-10.44); Carbon Dioxide 17 mmol/L (23-31); Chloride 106 mmol/L (98-107); Estimated GFR-MDRD 72; Glucose 207 mg/dL (83-110); Magnesium 2.4 mg/dL (1.6-2.6); Potassium 3.2 mmol/L (3.5-5.1); Sodium 132 mmol/L (136-145)
[2019-09-04 06:07] LABS: Phosphorus 1.9 mg/dL (2.3-4.7)
[2019-09-04] MEDS ORDERED: Potassium Phosphate 15 MMOL in Sodium Chloride 0.9% 250 ML 250 ML IVPB SCH (06:30)
--- NOTE | 2019-09-04 06:51 | PDOC.GSPN ---
Surgery Progress Note: Subj - Subjective Narrative: Patient is an 89 year old female POD 10 complaining of continued generalized abdominal pain, nausea and vomiting. The pain is exacerbated by movement and is rated as a 3/10. The pain is diffuse across the abdomen and does not radiate. Zofran has helped with the nausea. She vomited 800ml of "wheat broth" emesis last night. She denies chest pain, sharp abdominal pain, irritation at incision site, shortness of breath or hematemesis. Surgery Progress Note: Obj - Vital signs Vital signs: Vital Signs - Most Recent Temp Pulse Resp BP Pulse Ox 98.0 F 71 16 151/70 H 98 09/04/19 04:30 09/04/19 04:30 09/04/19 04:30 09/04/19 04:30 09/04/19 04:30 - Physical Exam General: moderate distress (Appears fatigued lying in hospital bed.) Cardiovascular: regular rate and rhythm Respiratory: clear to auscultation Abdomen: soft, non tender, positive bowel sounds Psychiatric: speech is normal Wound: healing well Surgery Progress Note: Results - Labs Result Diagrams: 08/31/19 05:32 09/04/19 05:28 Lab results: Laboratory Results - last 24 hr 09/04/19 09/04/19 09/04/19 00:01 05:28 06:08 Sodium 132 L Potassium 3.2 L Chloride 106 Carbon Dioxide 17 L Anion Gap 12 BUN 12 Creatinine 0.76 Estimated GFR (MDRD) 72 Glucose 207 H POC Glucose 203 H 203 H Calcium 8.6 Phosphorus 1.9 L Magnesium 2.4 Surgery Progress Note: A/P - Problem (1) Gastric malignant neoplasm Current Visit: Yes Status: Acute - Plan Plan: Continue TPN and Zofran for nausea vomiting. Monitor I/O's. Addendum - Physician - Physician Attestation Date/Time: 09/04/1910 I personally performed or re-performed the physical examination and medical decision making. I have verified all student documentation or findings, including history, physical exam and/or medical decision making. continued vomitting. Suspect she has swelling at anastamosis +/- decreased function from carcinomatosis. I recommended NG tube. If not improved in next few days then likelihood of improvement low.
[2019-09-04] MEDS: Pantoprazole 40 MG VIAL IVP SCH ×2 (08:19→21:10)
[2019-09-04] MEDS: Enoxaparin Sodium 30 MG/0.3 ML SYRINGE SC SCH (08:20)
[2019-09-04] MEDS ORDERED: Potassium Phosphate 30 MMOL in Sodium Chloride 0.9% 500 ML IVPB SCH (09:15)
[2019-09-04] MEDS: Amlodipine 10 MG TAB PO SCH (09:30)
[2019-09-04] MEDS: Atenolol 50 MG TAB PO SCH (09:30)
[2019-09-04] MEDS ORDERED: hydrALAZINE 20 MG/ML VIAL SLOW IVP PRN (13:05)
--- NOTE | 2019-09-04 16:46 | PDOC.HOSPP ---
- Subjective Encounter Date: 09/04/19 Encounter Time: 10:30 Subjective: pt up in bed has a ng tube feels better. - Objective Vital Signs & Weight: Vital Signs (12 hours) Temp Pulse Resp BP BP Pulse Ox 09/04/19 15:49 98.2 F 74 14 150/70 H 98 09/04/19 13:55 75 166/77 H 09/04/19 11:50 98.2 F 75 14 166/77 H 98 09/04/19 09:30 71 165/80 H 09/04/19 07:50 97.6 F 71 16 165/80 H 98 Weight Admit Weight 126 lb 12.8 oz Weight 126 lb 12.8 oz I&O: 09/03/19 09/04/19 09/05/19 06:59 06:59 06:59 Intake Total 4795 2880 Output Total 3525 2300 1100 Balance 1270 580 -1100 Result Diagrams: 08/31/19 05:32 09/04/19 05:28 Additional Labs: Accuchecks 09/04/19 09/04/19 09/04/19 11:47 06:08 00:01 POC Glucose 204 H 203 H 203 H 09/03/19 17:59 POC Glucose 212 H Hospitalist ROS - Review of Systems Cardiovascular: denies: chest pain, palpitations, orthopnea, paroxysmal noc. dyspnea, edema, light headedness, other Gastrointestinal: denies: nausea, vomiting, abdominal pain, diarrhea, constipation, melena, hematochezia, other Genitourinary: denies: dysuria, frequency, incontinence, hematuria, retention, other - Medication Medications: Active Medications Generic Name Dose Route Start Last Admin Trade Name Freq PRN Reason Stop Dose Admin Hydrocodone Bitart/Acetaminophen 15 ml 08/31/19 14:31 09/02/19 19:20 Hydrocodone-Apap 7.5-325/15 PO 15 ml Q6H PRN Administration Pain Al Hydroxide/Mg Hydroxide 30 ml 09/01/19 17:32 09/02/19 16:09 Maalox PO 30 ml DAILYPRN PRN Administration Heartburn or Indigestion Amlodipine Besylate 10 mg 09/04/19 09:00 09/04/19 09:30 Norvasc PO Not Given DAILY JANNETH Atenolol 50 mg 08/31/19 09:00 09/04/19 09:30 Tenormin PO Not Given QAM [facility] Calcium Carbonate 1,000 mg 09/01/19 20:39 09/02/19 19:21 Tums PO 1,000 mg Q4H PRN Administration Heartburn or Indigestion Enoxaparin Sodium 30 mg 08/26/19 09:00 09/04/19 08:20 Lovenox SC 30 mg 0900 JANNETH Administration Hydralazine HCl 10 mg 08/29/19 13:15 09/04/19 00:29 Apresoline SLOW IVP 10 mg Q4H PRN Administration SBP > 170 or DBP > 100 Hydralazine HCl 5 mg 09/04/19 13:05 09/04/19 13:55 Apresoline SLOW IVP 5 mg Q6H PRN Administration SBP GREATER THAN 160 Dextrose/Sodium Chloride 1,000 mls @ 75 mls/hr 08/31/19 09:15 09/04/19 06:13 D5 0.9% Ns IV Not Given .[id number] [facility] Fat Emulsion Intravenous 250 2,282.463 mls @ 95.103 mls/hr 09/02/19 22:00 22:31 ml/ Sodium Chloride 20 meq/ IV 2,282.463 mls Potassium Acetate 20 meq/ 2200 [facility] Administration Magnesium Sulfate 10 meq/ Multivitamins 10 ml/ Chromium/ Copper/Manganese/Seleni/Zn 5 ml/ Amino Acids/Electrolytes Insulin Human Lispro 0 units 09/03/19 18:08 09/04/19 12:28 Humalog SC 3 units .MILD SLIDING SCALE PRN Administration Mild Correctional Scale Levothyroxine Sodium 150 mcg 08/31/19 06:00 09/04/19 05:51 Synthroid PO Not Given 0600 [facility] Morphine Sulfate 2 mg 08/25/19 18:43 09/04/19 05:50 Morphine SLOW IVP 2 mg Q4H PRN Administration Moderate Pain (4-6) Ondansetron HCl 4 mg 08/29/19 13:15 09/03/19 22:30 Zofran IVP 4 mg Q6H PRN Administration Nausea/Vomiting Pantoprazole Sodium 40 mg 09/04/19 09:00 09/04/19 08:19 Protonix IVP 40 mg BID [facility] Administration Promethazine HCl 12.5 mg 08/29/19 13:15 09/04/19 05:49 Phenergan IM 12.5 mg Q4H PRN Administration Nausea/Vomiting Scopolamine 1.5 mg 09/03/19 22:45 09/03/19 23:08 Transderm Scop TOP 1.5 mg Q3D JANNETH Administration Sodium Chloride 10 ml 08/29/19 13:15 09/02/19 08:42 Flush - Normal Saline IVF 10 ml PRN PRN Administration Saline Flush - Exam Heart: RRR, no murmur Respiratory: CTAB, no wheezes Gastrointestinal: soft, non-tender, non-distended Skin: normal turgor Hosp A/P (1) Gastric malignant neoplasm Status: Acute (2) Hypertension Code(s): I10 - ESSENTIAL (PRIMARY) HYPERTENSION Status: Acute (3) Hypothyroidism Code(s): E03.9 - HYPOTHYROIDISM, UNSPECIFIED Status: Acute (4) Small bowel obstruction Code(s): K56.609 - UNSP INTESTNL OBST, UNSP TO PARTIAL VERSUS COMPLETE OBST Status: Acute (5) Dehydration, moderate Code(s): E86.0 - DEHYDRATION Status: Acute - Plan will add tums for indigestion. will continue current tx. will advance diet as tolerated. possible hospice. 09/02 spoke with surgery yest in regards to pt unable to eat and high output from her ostomy. will start TPN for nutrition, pt wants to eat but feels full after she eats a bit. anticipate her symptoms will improve per surgery. 09/03 pt started tpn, pt is nauseated on antiemetic will monitor. 09/04 pt has a ng tube, feels much better. will replace electrolytes and continue tpn.
[2019-09-04] MEDS: Chloraseptic Spray 180 ml Bottle PO PRN (18:47)
[2019-09-04] MEDS: [UNRECOGNIZED DRUG - OTHER] IV SCH (22:31)
[2019-09-04] MEDS: SODIUM CHLORIDE IV SCH (22:31)
[2019-09-04] MEDS: FAT EMULSION IV SCH (22:31)
[2019-09-04] MEDS: POTASSIUM ACETATE IV SCH (22:31)
[2019-09-04] MEDS: Hydrocodone-Acetamin 15 ML UDCUP PO PRN (22:50)
[2019-09-05] MEDS: HumaLOG 300 UNITS/3 ML VIAL SC PRN ×4 (00:25→18:35)
[2019-09-05] MEDS: Levothyroxine 150 MCG TAB PO SCH (06:14)
--- NOTE | 2019-09-05 07:46 | PDOC.GSPN ---
Surgery Progress Note: Subj - Subjective Patient reports: feels better, pain well controlled Narrative: Patient is an 89 yof POD 11 who complains of a sore throat after gastric decompression yesterday, but otherwise is feeling significantly improved. She denies any abdominal pain or vomiting since the decompression. She still endorses some spitting up and mild nausea. She has been able to ambulate with physical therapy and the help of a walker. She denies chest pain, cough, shortness of breath, hematemesis or pain at incision site. Surgery Progress Note: Obj - Vital signs Vital signs: Vital Signs - Most Recent Temp Pulse Resp BP Pulse Ox 97.5 F L 70 16 150/62 H 96 09/05/19 07:18 09/05/19 07:18 09/05/19 07:18 09/05/19 07:18 09/05/19 07:18 - Physical Exam General: no pain, other (Comfortably laying in hospital bed.) Cardiovascular: regular rate and rhythm Respiratory: clear to auscultation Abdomen: soft, non tender, positive bowel sounds Wound: healing well, ostomy/colostomy Surgery Progress Note: Results - Labs Result Diagrams: 08/31/19 05:32 09/05/19 09:22 Lab results: Laboratory Results - last 24 hr 09/04/19 23:45 POC Glucose 175 H Surgery Progress Note: A/P - Problem (1) Gastric malignant neoplasm Current Visit: Yes Status: Acute - Plan Plan: Continue NG to LIWS for now. Reassess gastric outlet, gastrojejunostomy in a few days with upper GI. Zofran for nausea. Continue ambulating with physical therapy. Get shafer catheter out as soon as safe to ambulate on her own.
[2019-09-05] MEDS: Atenolol 50 MG TAB PO SCH (08:41)
[2019-09-05] MEDS: Amlodipine 10 MG TAB PO SCH (08:42)
[2019-09-05] MEDS: Pantoprazole 40 MG VIAL IVP SCH ×2 (08:43→20:13)
[2019-09-05] MEDS: Enoxaparin Sodium 30 MG/0.3 ML SYRINGE SC SCH (08:43)
[2019-09-05 10:03] LABS: ALT (SGPT) 10 U/L (8-55); AST (SGOT) 19 U/L (5-34); Albumin 2.5 g/dL (3.4-4.8); Alkaline Phosphatase 88 U/L (40-110); Anion Gap 9 mmol/L (10-20); BUN (Urea Nitrogen) 40 mg/dL (9.8-20.1); Bilirubin, Total 0.8 mg/dL (0.2-1.2); Calc. Creatinine Clearance 48 mL/min (70-130); Calcium 8.4 mg/dL (7.8-10.44); Carbon Dioxide 23 mmol/L (23-31); Chloride 104 mmol/L (98-107); Estimated GFR-MDRD 76; Globulin 2.6 g/dL (2.4-3.5); Glucose 109 mg/dL (83-110); Magnesium 2.4 mg/dL (1.6-2.6); Phosphorus 2.4 mg/dL (2.3-4.7); Potassium 3.1 mmol/L (3.5-5.1); Protein, Total 5.1 g/dL (6.0-8.3); Sodium 133 mmol/L (136-145)
[2019-09-05] MEDS: Dextrose 5 % And 0.9 % NaCl 1,000 ML IV SCH ×2 (10:34→22:31)
[2019-09-05] MEDS: Ondansetron PF 4 MG/2 ML Vial IVP PRN (11:31)
[2019-09-05] MEDS ORDERED: Benzocaine 20% Spray 60 ML CAN PO SCH (15:00)
--- NOTE | 2019-09-05 17:36 | PDOC.HOSPP ---
- Subjective Encounter Date: 09/05/19 Encounter Time: 12:30 Subjective: pt up in bed still has some nausea - Objective Vital Signs & Weight: Vital Signs (12 hours) Temp Pulse Resp BP BP Pulse Ox 09/05/19 15:36 97.8 F 68 16 126/70 98 09/05/19 11:58 98.2 F 86 16 126/73 99 09/05/19 08:42 70 150/62 H 09/05/19 08:41 70 150/62 H 09/05/19 07:18 97.5 F L 70 16 150/62 H 96 Weight Admit Weight 126 lb 12.8 oz Weight 126 lb 12.8 oz I&O: 09/04/19 09/05/19 09/06/19 06:59 06:59 06:59 Intake Total 2880 1321 1140 Output Total 2300 3375 1150 Balance 580 -2054 -10 Result Diagrams: 08/31/19 05:32 09/05/19 09:22 Additional Labs: Accuchecks 09/05/19 09/04/19 12:07 23:45 POC Glucose 155 H 175 H Hospitalist ROS - Review of Systems Respiratory: denies: cough, dry, shortness of breath, hemoptysis, SOB with excertion, pleuritic pain, sputum, wheezing, other Cardiovascular: denies: chest pain, palpitations, orthopnea, paroxysmal noc. dyspnea, edema, light headedness, other Gastrointestinal: reports: nausea, vomiting - Medication Medications: Active Medications Generic Name Dose Route Start Last Admin Trade Name Freq PRN Reason Stop Dose Admin Hydrocodone Bitart/Acetaminophen 15 ml 08/31/19 14:31 09/04/19 22:50 Hydrocodone-Apap 7.5-325/15 PO 15 ml Q6H PRN Administration Pain Al Hydroxide/Mg Hydroxide 30 ml 09/01/19 17:32 09/02/19 16:09 Maalox PO 30 ml DAILYPRN PRN Administration Heartburn or Indigestion Amlodipine Besylate 10 mg 09/04/19 09:00 09/05/19 08:42 Norvasc PO Not Given DAILY JANNETH Atenolol 50 mg 08/31/19 09:00 09/05/19 08:41 Tenormin PO 50 mg QAM JANNETH Administration Benzocaine 1 ml 09/05/19 15:00 09/05/19 15:06 [place] 20% [place] PO 1 spr TID JANNETH Administration Calcium Carbonate 1,000 mg 09/01/19 20:39 09/02/19 19:21 Tums PO 1,000 mg Q4H PRN Administration Heartburn or Indigestion Enoxaparin Sodium 30 mg 08/26/19 09:00 09/05/19 08:43 Lovenox SC 30 mg 0900 JANNETH Administration Hydralazine HCl 5 mg 09/04/19 13:05 09/04/19 13:55 Apresoline SLOW IVP 5 mg Q6H PRN Administration SBP GREATER THAN 160 Dextrose/Sodium Chloride 1,000 mls @ 75 mls/hr 08/31/19 09:15 09/05/19 10:34 D5 0.9% Ns IV Not Given .[id number] [facility] Fat Emulsion Intravenous 250 2,282.463 mls @ 95.103 mls/hr 09/02/19 22:00 22:31 ml/ Sodium Chloride 20 meq/ IV 2,282.463 mls Potassium Acetate 20 meq/ 2200 [facility] Administration Magnesium Sulfate 10 meq/ Multivitamins 10 ml/ Chromium/ Copper/Manganese/Seleni/Zn 5 ml/ Amino Acids/Electrolytes Insulin Human Lispro 0 units 09/03/19 18:08 09/05/19 12:51 Humalog SC 2 units .MILD SLIDING SCALE PRN Administration Mild Correctional Scale Levothyroxine Sodium 150 mcg 08/31/19 06:00 09/05/19 06:14 Synthroid PO 150 mcg 0600 [facility] Administration Ondansetron HCl 4 mg 08/29/19 13:15 09/05/19 11:31 Zofran IVP 4 mg Q6H PRN Administration Nausea/Vomiting Pantoprazole Sodium 40 mg 09/04/19 09:00 09/05/19 08:43 Protonix IVP 40 mg BID JANNETH Administration Phenol 1 ml 09/04/19 15:56 09/04/19 18:47 Chloraseptic [place] 180 Ml Bot PO 1 spr BIDPRN PRN Administration Sore Throat Promethazine HCl 12.5 mg 08/29/19 13:15 09/04/19 05:49 Phenergan IM 12.5 mg Q4H PRN Administration Nausea/Vomiting Scopolamine 1.5 mg 09/03/19 22:45 09/03/19 23:08 Transderm Scop TOP 1.5 mg Q3D JANNETH Administration Sodium Chloride 10 ml 08/29/19 13:15 09/02/19 08:42 Flush - Normal Saline IVF 10 ml PRN PRN Administration Saline Flush - Exam Heart: negative: RRR, no murmur, no gallops, no rubs, normal peripheral pulses, irregular, diminshed peripheral pulses, murmur present, II/IV, III/IV Respiratory: negative: CTAB, no wheezes, no rales, no ronchi, normal chest expansion, no tachypnea, normal percussion, rales, rhonchi, tachypneic, wheezes Gastrointestinal: negative: soft, non-tender, non-distended, normal bowel sounds , no palpable masses, no hepatomegaly, no splenomegaly, no bruit, no guarding, no rigidity, tender to palpation, distended, diminished bowl sounds, voluntary guarding Hosp A/P (1) Gastric malignant neoplasm Status: Acute (2) Hypertension Code(s): I10 - ESSENTIAL (PRIMARY) HYPERTENSION Status: Acute (3) Hypothyroidism Code(s): E03.9 - HYPOTHYROIDISM, UNSPECIFIED Status: Acute (4) Small bowel obstruction Code(s): K56.609 - UNSP INTESTNL OBST, UNSP TO PARTIAL VERSUS COMPLETE OBST Status: Acute (5) Dehydration, moderate Code(s): E86.0 - DEHYDRATION Status: Acute - Plan will add tums for indigestion. will continue current tx. will advance diet as tolerated. possible hospice. 09/02 spoke with surgery yest in regards to pt unable to eat and high output from her ostomy. will start TPN for nutrition, pt wants to eat but feels full after she eats a bit. anticipate her symptoms will improve per surgery. 09/03 pt started tpn, pt is nauseated on antiemetic will monitor. 09/04 pt has a ng tube, feels much better. will replace electrolytes and continue tpn. 09/05 electrolytes have been replaced, NG tube to LIS. continue tpn. pt on sliding scale insulin.
[2019-09-05] MEDS: Chloraseptic Spray 180 ml Bottle PO PRN (20:13)
[2019-09-05] MEDS: Hydrocodone-Acetamin 15 ML UDCUP PO PRN (20:14)
[2019-09-05] MEDS: FAT EMULSION IV SCH (22:32)
[2019-09-05] MEDS: [UNRECOGNIZED DRUG - OTHER] IV SCH (22:32)
[2019-09-05] MEDS: POTASSIUM ACETATE IV SCH (22:32)
[2019-09-05] MEDS: SODIUM CHLORIDE IV SCH (22:32)
[2019-09-06] MEDS: HumaLOG 300 UNITS/3 ML VIAL SC PRN ×2 (06:38→18:22)
[2019-09-06] MEDS: Levothyroxine 150 MCG TAB PO SCH (06:38)
[2019-09-06] MEDS: Atenolol 50 MG TAB PO SCH (09:19)
[2019-09-06] MEDS: Enoxaparin Sodium 30 MG/0.3 ML SYRINGE SC SCH (09:20)
[2019-09-06] MEDS: Amlodipine 10 MG TAB PO SCH (09:20)
[2019-09-06] MEDS: Pantoprazole 40 MG VIAL IVP SCH ×2 (09:21→19:50)
[2019-09-06] MEDS ORDERED: Acetaminophen 1,000 MG in Premix Bag 1 BAG IVPB PRN (09:51)
[2019-09-06] MEDS ORDERED: Potassium Chloride 20 MEQ/100 ML PREMIX BAG IVPB SCH (10:00)
--- NOTE | 2019-09-06 10:21 | PRG ---
DATE OF SERVICE: 09/06/2019 SUBJECTIVE: Ms. Issa feels slightly better today. She is not complaining of so much nausea. OBJECTIVE: VITAL SIGNS: She is afebrile and her vital signs are stable. ABDOMEN: Soft. It is minimally distended. She has occasional bowel sounds. NG output is much less. LABORATORY DATA: Potassium is 3.1 this morning. ASSESSMENT: Recurrent gastric cancer with carcinomatosis, status post palliative gastrojejunostomy and ascending colon colostomy. PLAN: My hope is that things open up from these palliative procedures to give her the ability to eat again as she moves towards hospice. My plan would be an upper GI through the NG tube tomorrow to further evaluate this gastric outlet. Until then, she can do ice chips and hard candy with her NG tube. Job ID: [id number]
[2019-09-06] MEDS: Dextrose 5 % And 0.9 % NaCl 1,000 ML IV SCH (13:04)
--- NOTE | 2019-09-06 19:05 | PDOC.HOSPP ---
- Subjective Encounter Date: 09/06/19 Encounter Time: 12:45 Subjective: pt up in bed still feels nauseated - Objective Vital Signs & Weight: Vital Signs (12 hours) Temp Pulse Resp BP BP Pulse Ox 09/06/19 16:00 100 09/06/19 15:47 98.1 F 73 18 135/69 100 09/06/19 13:00 98.0 F 72 16 131/72 95 09/06/19 09:20 72 127/68 09/06/19 09:19 72 127/68 09/06/19 08:00 99 09/06/19 07:59 98.6 F 72 20 127/68 99 Weight Admit Weight 126 lb 12.8 oz Weight 126 lb 12.8 oz I&O: 09/05/19 09/06/19 09/07/19 06:59 06:59 06:59 Intake Total 1321 2460 2670 Output Total 3375 2175 1945 Balance -4 285 725 Result Diagrams: 08/31/19 05:32 09/05/19 09:22 Additional Labs: Accuchecks 09/06/19 09/06/19 09/06/19 17:02 11:58 05:27 POC Glucose 170 H 179 H 151 H 09/06/19 09/05/19 02:35 06:25 POC Glucose 142 H 171 H Hospitalist ROS - Review of Systems Respiratory: denies: cough, dry, shortness of breath, hemoptysis, SOB with excertion, pleuritic pain, sputum, wheezing, other Gastrointestinal: reports: nausea Genitourinary: denies: dysuria, frequency, incontinence, hematuria, retention, other - Medication Medications: Active Medications Generic Name Dose Route Start Last Admin Trade Name Freq PRN Reason Stop Dose Admin Hydrocodone Bitart/Acetaminophen 15 ml 08/31/19 14:31 09/05/19 20:14 Hydrocodone-Apap 7.5-325/15 PO 15 ml Q6H PRN Administration Pain Al Hydroxide/Mg Hydroxide 30 ml 09/01/19 17:32 09/02/19 16:09 Maalox PO 30 ml DAILYPRN PRN Administration Heartburn or Indigestion Amlodipine Besylate 10 mg 09/04/19 09:00 09/06/19 09:20 Norvasc PO 10 mg DAILY JANNETH Administration Atenolol 50 mg 08/31/19 09:00 09/06/19 09:19 Tenormin PO 50 mg QAM [facility] Administration Calcium Carbonate 1,000 mg 09/01/19 20:39 09/02/19 19:21 Tums PO 1,000 mg Q4H PRN Administration Heartburn or Indigestion Enoxaparin Sodium 30 mg 08/26/19 09:00 09/06/19 09:20 Lovenox SC 30 mg 0900 [facility] Administration Hydralazine HCl 5 mg 09/04/19 13:05 09/04/19 13:55 Apresoline SLOW IVP 5 mg Q6H PRN Administration SBP GREATER THAN 160 Dextrose/Sodium Chloride 1,000 mls @ 75 mls/hr 08/31/19 09:15 09/06/19 13:04 D5 0.9% Ns IV Not Given .[id number] [facility] Fat Emulsion Intravenous 250 2,282.463 mls @ 95.103 mls/hr 09/02/19 22:00 22:32 ml/ Sodium Chloride 20 meq/ IV 2,282.463 mls Potassium Acetate 20 meq/ 2200 [facility] Administration Magnesium Sulfate 10 meq/ Multivitamins 10 ml/ Chromium/ Copper/Manganese/Seleni/Zn 5 ml/ Amino Acids/Electrolytes Insulin Human Lispro 0 units 09/03/19 18:08 09/06/19 18:22 Humalog SC 2 units .MILD SLIDING SCALE PRN Administration Mild Correctional Scale Levothyroxine Sodium 150 mcg 08/31/19 06:00 09/06/19 06:38 Synthroid PO 150 mcg 0600 [facility] Administration Ondansetron HCl 4 mg 08/29/19 13:15 09/05/19 11:31 Zofran IVP 4 mg Q6H PRN Administration Nausea/Vomiting Pantoprazole Sodium 40 mg 09/04/19 09:00 09/06/19 09:21 Protonix IVP 40 mg BID [facility] Administration Phenol 1 ml 09/04/19 15:56 09/05/19 20:13 Chloraseptic [place] 180 Ml Bot PO 1 spr BIDPRN PRN Administration Sore Throat Promethazine HCl 12.5 mg 08/29/19 13:15 09/04/19 05:49 Phenergan IM 12.5 mg Q4H PRN Administration Nausea/Vomiting Scopolamine 1.5 mg 09/03/19 22:45 09/03/19 23:08 Transderm Scop TOP 1.5 mg Q3D JANNETH Administration Sodium Chloride 10 ml 08/29/19 13:15 09/02/19 08:42 Flush - Normal Saline IVF 10 ml PRN PRN Administration Saline Flush - Exam ENT: negative: normocephalic atraumatic, no oropharyngeal lesions, moist mucosa , dry oral mucosa Neck: negative: supple, symmetric, no JVD, no thyromegaly, no lymphadenopathy, no carotid bruit, JVD Heart: negative: RRR, no murmur, no gallops, no rubs, normal peripheral pulses, irregular, diminshed peripheral pulses, murmur present, II/IV, III/IV Gastrointestinal: soft, non-tender, non-distended Hosp A/P (1) Gastric malignant neoplasm Status: Acute (2) Hypertension Code(s): I10 - ESSENTIAL (PRIMARY) HYPERTENSION Status: Acute (3) Hypothyroidism Code(s): E03.9 - HYPOTHYROIDISM, UNSPECIFIED Status: Acute (4) Small bowel obstruction Code(s): K56.609 - UNSP INTESTNL OBST, UNSP TO PARTIAL VERSUS COMPLETE OBST Status: Acute (5) Dehydration, moderate Code(s): E86.0 - DEHYDRATION Status: Acute - Plan will add tums for indigestion. will continue current tx. will advance diet as tolerated. possible hospice. 09/02 spoke with surgery yest in regards to pt unable to eat and high output from her ostomy. will start TPN for nutrition, pt wants to eat but feels full after she eats a bit. anticipate her symptoms will improve per surgery. 09/03 pt started tpn, pt is nauseated on antiemetic will monitor. 09/04 pt has a ng tube, feels much better. will replace electrolytes and continue tpn. 09/05 electrolytes have been replaced, NG tube to LIS. continue tpn. pt on sliding scale insulin. 09/06 per surgery pt to have upper gi in am to see if she has an obstruction. continue tpn, pt up walking.
[2019-09-06] MEDS: SODIUM CHLORIDE IV SCH (22:26)
[2019-09-06] MEDS: [UNRECOGNIZED DRUG - OTHER] IV SCH (22:26)
[2019-09-06] MEDS: FAT EMULSION IV SCH (22:26)
[2019-09-06] MEDS: Scopolamine 1.5 mg/72 hour Patch TOP SCH (22:26)
[2019-09-06] MEDS: POTASSIUM ACETATE IV SCH (22:26)
[2019-09-07] MEDS: Dextrose 5 % And 0.9 % NaCl 1,000 ML IV SCH (01:48)
[2019-09-07] MEDS: Levothyroxine 150 MCG TAB PO SCH (05:31)
[2019-09-07] MEDS: Chloraseptic Spray 180 ml Bottle PO PRN (05:34)
[2019-09-07 06:17] LABS: Anion Gap 6 mmol/L (10-20); BUN (Urea Nitrogen) 35 mg/dL (9.8-20.1); Calc. Creatinine Clearance 53 mL/min (70-130); Calcium 8.2 mg/dL (7.8-10.44); Carbon Dioxide 26 mmol/L (23-31); Chloride 105 mmol/L (98-107); Estimated GFR-MDRD 86; Glucose 131 mg/dL (83-110); Potassium 3.4 mmol/L (3.5-5.1); Sodium 134 mmol/L (136-145)
[2019-09-07] MEDS: Pantoprazole 40 MG VIAL IVP SCH ×2 (08:09→21:03)
[2019-09-07] MEDS: Atenolol 50 MG TAB PO SCH (08:10)
[2019-09-07] MEDS: Enoxaparin Sodium 30 MG/0.3 ML SYRINGE SC SCH (08:10)
[2019-09-07] MEDS: Amlodipine 10 MG TAB PO SCH (08:10)
[2019-09-07] MEDS: Ondansetron PF 4 MG/2 ML Vial IVP PRN (08:12)
--- NOTE | 2019-09-07 11:11 | RAD ---
UPPER GI: DATE: 09/07/2019. HISTORY: An 89-year-old female with a history of prior gastrojejunostomy, assess for gastric outlet obstructio n. FINDINGS: Right-sided Port-A-Cath present. Stent material overlies the cardiac silhouette. Nasogastric tube ext ends into the left upper quadrant. Process Stripper imaging demonstrates small bilateral pleural effusions, left larger than right. There is consol idation/collapse involving the medial aspect of the left lower lobe. Thin barium was injected into the patient's nasogastric tube, opacifying the stomach. There are to ga strojejunostomy sites present, one along the inferior medial aspect of the postoperative stomach and one along the superolateral aspect of the postoperative stomach. Contrast media exits the stomach and crosses both gastrojejunostomy sites, with no evidence for gastric outlet obstruction. Of note, the contrast media preferentially empties via the more superior and left lateral gastrojejunost jennifer. The opacified small bowel loops are nondilated. Numerous opacified small bowel loops extend into the lower abdomen and pelvis. A KUB performed approximately 1 hour following injection of the co ntrast media demonstrates small volume residual contrast in the stomach and contrast media within numerous nondilated loops of small bowel within the abdomen/pelvis. Contrast media extends into an os liya in the right lower quadrant. There is residual contrast media from prior small bowel follow-through suspected within the distal colon. IMPRESSION: No evidence for gastric outlet obstruction. Please see above discussion. Transcribed Date/Time: 09/07/2019 11:30 AM
--- NOTE | 2019-09-07 12:41 | PRG ---
DATE OF SERVICE: 09/07/2019 SUBJECTIVE: Ms. Issa is doing well. She had barium study through her NG tube this morning, which showed good drainage of contrast through her new gastro-J into her intestine, and ultimately, all the way to her colon. She noted mild nausea during the procedure, no nausea now. ASSESSMENT: Resolving ileus gastrojejunostomy. PLAN: Remove NG tube, allow clear liquids. Dr. Rodgers is covering for me this weekend. Job ID: [id number]
--- NOTE | 2019-09-07 19:36 | PDOC.HOSPP ---
- Subjective Encounter Date: 09/07/19 Encounter Time: 15:30 Subjective: pt up in bed feels much better - Objective Vital Signs & Weight: Vital Signs (12 hours) Temp Pulse Resp BP Pulse Ox 09/07/19 16:00 99.6 F 84 16 144/81 H 99 09/07/19 12:20 98.0 F 78 16 138/87 97 09/07/19 12:00 97 09/07/19 08:10 72 09/07/19 08:00 98 Weight Admit Weight 126 lb 12.8 oz Weight 126 lb 12.8 oz I&O: 09/06/19 09/07/19 09/08/19 06:59 06:59 06:59 Intake Total 2460 2670 1985 Output Total 2175 3220 1550 Balance 285 -550 435 Result Diagrams: 08/31/19 05:32 09/07/19 05:48 Additional Labs: Accuchecks 09/07/19 09/07/19 09/07/19 18:31 12:22 05:14 POC Glucose 140 H 207 H 135 H 09/06/19 23:38 POC Glucose 134 H Hospitalist ROS - Review of Systems Respiratory: denies: cough, dry, shortness of breath, hemoptysis, SOB with excertion, pleuritic pain, sputum, wheezing, other Cardiovascular: denies: chest pain, palpitations, orthopnea, paroxysmal noc. dyspnea, edema, light headedness, other Gastrointestinal: denies: nausea, vomiting, abdominal pain, diarrhea, constipation, melena, hematochezia, other - Medication Medications: Active Medications Generic Name Dose Route Start Last Admin Trade Name Freq PRN Reason Stop Dose Admin Hydrocodone Bitart/Acetaminophen 15 ml 08/31/19 14:31 09/05/19 20:14 Hydrocodone-Apap 7.5-325/15 PO 15 ml Q6H PRN Administration Pain Al Hydroxide/Mg Hydroxide 30 ml 09/01/19 17:32 09/02/19 16:09 Maalox PO 30 ml DAILYPRN PRN Administration Heartburn or Indigestion Amlodipine Besylate 10 mg 09/04/19 09:00 09/07/19 08:10 Norvasc PO 10 mg DAILY JANNETH Administration Atenolol 50 mg 08/31/19 09:00 09/07/19 08:10 Tenormin PO 50 mg QAM JANNETH Administration Calcium Carbonate 1,000 mg 09/01/19 20:39 09/02/19 19:21 Tums PO 1,000 mg Q4H PRN Administration Heartburn or Indigestion Enoxaparin Sodium 30 mg 08/26/19 09:00 09/07/19 08:10 Lovenox SC 30 mg 0900 JANNETH Administration Hydralazine HCl 5 mg 09/04/19 13:05 09/04/19 13:55 Apresoline SLOW IVP 5 mg Q6H PRN Administration SBP GREATER THAN 160 Fat Emulsion Intravenous 250 2,282.463 mls @ 95.103 mls/hr 09/02/19 22:00 22:26 ml/ Sodium Chloride 20 meq/ IV 2,282.463 mls Potassium Acetate 20 meq/ 2200 JANNETH Administration Magnesium Sulfate 10 meq/ Multivitamins 10 ml/ Chromium/ Copper/Manganese/Seleni/Zn 5 ml/ Amino Acids/Electrolytes Insulin Human Lispro 0 units 09/03/19 18:08 09/06/19 18:22 Humalog SC 2 units .MILD SLIDING SCALE PRN Administration Mild Correctional Scale Levothyroxine Sodium 150 mcg 08/31/19 06:00 09/07/19 05:31 Synthroid PO 150 mcg 0600 [facility] Administration Ondansetron HCl 4 mg 08/29/19 13:15 09/07/19 08:12 Zofran IVP 4 mg Q6H PRN Administration Nausea/Vomiting Pantoprazole Sodium 40 mg 09/04/19 09:00 09/07/19 08:09 Protonix IVP 40 mg BID JANNETH Administration Phenol 1 ml 09/04/19 15:56 09/07/19 05:34 Chloraseptic [place] 180 Ml Bot PO 1 spr BIDPRN PRN Administration Sore Throat Promethazine HCl 12.5 mg 08/29/19 13:15 09/04/19 05:49 Phenergan IM 12.5 mg Q4H PRN Administration Nausea/Vomiting Scopolamine 1.5 mg 09/03/19 22:45 09/06/19 22:26 Transderm Scop TOP 1.5 mg Q3D JANNETH Administration Sodium Chloride 10 ml 08/29/19 13:15 09/02/19 08:42 Flush - Normal Saline IVF 10 ml PRN PRN Administration Saline Flush - Exam Neck: negative: supple, symmetric, no JVD, no thyromegaly, no lymphadenopathy, no carotid bruit, JVD Heart: negative: RRR, no murmur, no gallops, no rubs, normal peripheral pulses, irregular, diminshed peripheral pulses, murmur present, II/IV, III/IV Respiratory: negative: CTAB, no wheezes, no rales, no ronchi, normal chest expansion, no tachypnea, normal percussion, rales, rhonchi, tachypneic, wheezes Gastrointestinal: soft, normal bowel sounds Hosp A/P (1) Gastric malignant neoplasm Status: Acute (2) Hypertension Code(s): I10 - ESSENTIAL (PRIMARY) HYPERTENSION Status: Acute (3) Hypothyroidism Code(s): E03.9 - HYPOTHYROIDISM, UNSPECIFIED Status: Acute (4) Small bowel obstruction Code(s): K56.609 - UNSP INTESTNL OBST, UNSP TO PARTIAL VERSUS COMPLETE OBST Status: Acute (5) Dehydration, moderate Code(s): E86.0 - DEHYDRATION Status: Acute - Plan will add tums for indigestion. will continue current tx. will advance diet as tolerated. possible hospice. 09/02 spoke with surgery yest in regards to pt unable to eat and high output from her ostomy. will start TPN for nutrition, pt wants to eat but feels full after she eats a bit. anticipate her symptoms will improve per surgery. 09/03 pt started tpn, pt is nauseated on antiemetic will monitor. 09/04 pt has a ng tube, feels much better. will replace electrolytes and continue tpn. 09/05 electrolytes have been replaced, NG tube to LIS. continue tpn. pt on sliding scale insulin. 09/06 per surgery pt to have upper gi in am to see if she has an obstruction. continue tpn, pt up walking. 09/07 pt had a barium swallow no obst, ng tube out, pt on clear liquid diet.
[2019-09-07] MEDS: SODIUM CHLORIDE IV SCH (22:10)
[2019-09-07] MEDS: FAT EMULSION IV SCH (22:10)
[2019-09-07] MEDS: POTASSIUM ACETATE IV SCH (22:10)
[2019-09-07] MEDS: [UNRECOGNIZED DRUG - OTHER] IV SCH (22:10)
[2019-09-08] MEDS: Levothyroxine 150 MCG TAB PO SCH (05:35)
[2019-09-08] MEDS: Ondansetron PF 4 MG/2 ML Vial IVP PRN ×2 (07:09→21:08)
[2019-09-08] MEDS: Enoxaparin Sodium 30 MG/0.3 ML SYRINGE SC SCH (08:25)
[2019-09-08] MEDS: Atenolol 50 MG TAB PO SCH (08:25)
[2019-09-08] MEDS: Pantoprazole 40 MG VIAL IVP SCH ×2 (08:25→20:02)
[2019-09-08] MEDS: Amlodipine 10 MG TAB PO SCH (08:26)
--- NOTE | 2019-09-08 10:26 | PRG ---
DATE OF SERVICE: 09/08/2019 SUBJECTIVE: The patient is feeling better. She is tolerating clear liquids well. She does have some nausea, no vomiting. Her ostomy is working well. PHYSICAL EXAMINATION: VITAL SIGNS: Her temperature is 98.3, pulse 78, blood pressure 132/70. GENERAL: She looks good. She is awake and alert. CHEST: She has a MediPort hat is accessed right upper chest. ABDOMEN: Slightly distended. The incision is healing well. Her ostomy bag is full of fluid. ASSESSMENT: Doing well. PLAN: Advance diet to full liquids. [facility] Job ID: [id number]
--- NOTE | 2019-09-08 12:53 | PDOC.HOSPP ---
- Subjective Encounter Date: 09/08/19 Encounter Time: 07:40 Subjective: Pt seen for followup re: bowel obstruction. Feels better. - Objective Vital Signs & Weight: Vital Signs (12 hours) Temp Pulse Resp BP BP Pulse Ox 09/08/19 11:01 97.6 F 76 20 104/64 98 09/08/19 08:26 78 132/70 09/08/19 08:25 78 132/70 98 09/08/19 07:52 98.3 F 77 18 132/70 98 09/08/19 04:00 98.5 F 77 18 145/65 H 99 Weight Admit Weight 126 lb 12.8 oz Weight 126 lb 12.8 oz I&O: 09/07/19 09/08/19 09/09/19 06:59 06:59 06:59 Intake Total 2670 1985 Output Total 3220 2750 Balance -803 -933 Result Diagrams: 08/31/19 05:32 09/07/19 05:48 Additional Labs: Accuchecks 09/08/19 09/08/19 09/07/19 12:16 05:35 23:40 POC Glucose 136 H 165 H 144 H 09/07/19 18:31 POC Glucose 140 H Labs and MARs reviewed by nc Hospitalist ROS - Review of Systems Cardiovascular: denies: chest pain, palpitations, orthopnea, paroxysmal noc. dyspnea, edema, light headedness Gastrointestinal: reports: nausea. denies: vomiting, abdominal pain, diarrhea, constipation, melena, hematochezia - Medication Medications: Active Medications Generic Name Dose Route Start Last Admin Trade Name Freq PRN Reason Stop Dose Admin Hydrocodone Bitart/Acetaminophen 15 ml 08/31/19 14:31 09/05/19 20:14 Hydrocodone-Apap 7.5-325/15 PO 15 ml Q6H PRN Administration Pain Al Hydroxide/Mg Hydroxide 30 ml 09/01/19 17:32 09/02/19 16:09 Maalox PO 30 ml DAILYPRN PRN Administration Heartburn or Indigestion Amlodipine Besylate 10 mg 09/04/19 09:00 09/08/19 08:26 Norvasc PO 10 mg DAILY JANNETH Administration Atenolol 50 mg 08/31/19 09:00 09/08/19 08:25 Tenormin PO 50 mg QAM JANENTH Administration Calcium Carbonate 1,000 mg 09/01/19 20:39 09/02/19 19:21 Tums PO 1,000 mg Q4H PRN Administration Heartburn or Indigestion Enoxaparin Sodium 30 mg 08/26/19 09:00 09/08/19 08:25 Lovenox SC 30 mg 0900 [facility] Administration Hydralazine HCl 5 mg 09/04/19 13:05 09/04/19 13:55 Apresoline SLOW IVP 5 mg Q6H PRN Administration SBP GREATER THAN 160 Fat Emulsion Intravenous 250 2,282.463 mls @ 95.103 mls/hr 09/02/19 22:00 22:10 ml/ Sodium Chloride 20 meq/ IV 2,282.463 mls Potassium Acetate 20 meq/ 2200 [facility] Administration Magnesium Sulfate 10 meq/ Multivitamins 10 ml/ Chromium/ Copper/Manganese/Seleni/Zn 5 ml/ Amino Acids/Electrolytes Insulin Human Lispro 0 units 09/03/19 18:08 09/06/19 18:22 Humalog SC 2 units .MILD SLIDING SCALE PRN Administration Mild Correctional Scale Levothyroxine Sodium 150 mcg 08/31/19 06:00 09/08/19 05:35 Synthroid PO 150 mcg 0600 [facility] Administration Ondansetron HCl 4 mg 08/29/19 13:15 09/08/19 07:09 Zofran IVP 4 mg Q6H PRN Administration Nausea/Vomiting Pantoprazole Sodium 40 mg 09/04/19 09:00 09/08/19 08:25 Protonix IVP 40 mg BID [facility]ANNET[facility] Administration Phenol 1 ml 09/04/19 15:56 09/07/19 05:34 Chloraseptic [place] 180 Ml Bot PO 1 spr BIDPRN PRN Administration Sore Throat Promethazine HCl 12.5 mg 08/29/19 13:15 09/04/19 05:49 Phenergan IM 12.5 mg Q4H PRN Administration Nausea/Vomiting Scopolamine 1.5 mg 09/03/19 22:45 09/06/19 22:26 Transderm Scop TOP 1.5 mg Q3D JANNETH Administration Sodium Chloride 10 ml 08/29/19 13:15 09/02/19 08:42 Flush - Normal Saline IVF 10 ml PRN PRN Administration Saline Flush - Exam General Appearance: NAD Eye: anicteric sclera ENT: moist mucosa Neck: supple, no JVD Heart: RRR Respiratory: CTAB, no rales Gastrointestinal: soft, non-tender Gastrointestinal - other findings: ostomy; incision Extremities: no edema Skin: no rashes Psychiatric: normal affect, normal behavior Hosp A/P (1) Small bowel obstruction Code(s): K56.609 - UNSP INTESTNL OBST, UNSP TO PARTIAL VERSUS COMPLETE OBST Status: Acute (2) Hypertension Code(s): I10 - ESSENTIAL (PRIMARY) HYPERTENSION Status: Chronic (3) Hypothyroidism Code(s): E03.9 - HYPOTHYROIDISM, UNSPECIFIED Status: Chronic (4) Gastric malignant neoplasm Status: Chronic - Plan Replace potassium. Pt likely to go for hospice on Tuesday. HTN controlled. Continue synthroid.
[2019-09-08] MEDS ORDERED: Potassium Chloride 10 MEQ in Premix Bag 1 BAG IVPB SCH (13:00)
[2019-09-08] MEDS: FAT EMULSION IV SCH (22:02)
[2019-09-08] MEDS: SODIUM CHLORIDE IV SCH (22:02)
[2019-09-08] MEDS: POTASSIUM ACETATE IV SCH (22:02)
[2019-09-08] MEDS: [UNRECOGNIZED DRUG - OTHER] IV SCH (22:02)
[2019-09-08] MEDS: Promethazine HCl 25 MG/ML VIAL IM PRN (22:52)
[2019-09-09] MEDS: Ondansetron PF 4 MG/2 ML Vial IVP PRN (01:21)
[2019-09-09] MEDS: Levothyroxine 150 MCG TAB PO SCH (05:27)
[2019-09-09 06:12] LABS: Anion Gap 9 mmol/L (10-20); BUN (Urea Nitrogen) 42 mg/dL (9.8-20.1); Calc. Creatinine Clearance 47 mL/min (70-130); Calcium 7.9 mg/dL (7.8-10.44); Carbon Dioxide 26 mmol/L (23-31); Chloride 101 mmol/L (98-107); Estimated GFR-MDRD 74; Glucose 126 mg/dL (83-110); Potassium 3.6 mmol/L (3.5-5.1); Sodium 132 mmol/L (136-145)
[2019-09-09 06:17] LABS: Band 15 % (5-11); Hemoglobin 9.9 g/dL (12.0-16.0); Lymphocytes 2 % (21-51); MDiff Complete? YES; Macrocytosis SLIGHT = 6-15 cells (100X) (0-5/hpf); Mean Corpuscular Hemoglobin 35.4 pg (27.0-31.0); Mean Platelet Volume 8.2 fL (7.4-10.4); Metamyelocyte 2 % (0-0); Monocytes 6 % (0-10); Neutrophil 75 % (42-75); Platelet Count 241 thou/uL (130-400); Platelet Morphology Comment Appears Adequate; RBC Distribution Width 12.5 % (11.5-14.5); White Blood Cell (WBC) Count 15.6 thou/uL (4.8-10.8)
[2019-09-09] MEDS: Amlodipine 10 MG TAB PO SCH (09:11)
[2019-09-09] MEDS: Enoxaparin Sodium 30 MG/0.3 ML SYRINGE SC SCH (09:12)
[2019-09-09] MEDS: Pantoprazole 40 MG VIAL IVP SCH ×2 (09:12→20:34)
[2019-09-09] MEDS: Atenolol 50 MG TAB PO SCH (09:12)
[2019-09-09] MEDS ORDERED: Megestrol Acetate 800 MG/20 ML UDCUP PO SCH (11:15)
[2019-09-09] MEDS ORDERED: Sodium Chloride 0.9% 500 ML IV SCH (16:15)
[2019-09-09] MEDS: Sodium Chloride 0.9% 1,000 ML IV SCH (16:49)
--- NOTE | 2019-09-09 17:07 | PRG ---
DATE OF SERVICE: 09/09/2019 SUBJECTIVE: good today. She feels very sluggish and tired and worn out. She is not taking much p.o. She had a little bit of nausea earlier. No vomiting. She is only on TPN. No supplemental fluid. OBJECTIVE: VITAL SIGNS: Temperature 97.9, pulse 77, blood pressure 99/61. GENERAL: She is awake but somewhat lethargic. HEENT: Otherwise unremarkable. LUNGS: Clear. ABDOMEN: Soft. The ostomy is putting out good fluid. There is no tenderness. Her urine output was 1 L, but it is very dark. LABORATORY DATA: Her white count has gone from 3.6 to 15.6, H and H 9.9 and 29. Her electrolytes are fine. ASSESSMENT: Some dehydration. PLAN: Go ahead and give her fluid bolus and resume her IV fluids. Job ID: [id number]
--- NOTE | 2019-09-09 18:27 | PDOC.HOSPP ---
- Subjective Encounter Date: 09/09/19 Encounter Time: 08:40 Subjective: Pt seen for followup re: bowel obstruction. Reports poor appetite. - Objective Vital Signs & Weight: Vital Signs (12 hours) Temp Pulse Resp BP Pulse Ox 09/09/19 15:04 97.9 F 77 14 99/61 99 09/09/19 11:47 97.9 F 82 14 107/55 L 98 09/09/19 07:27 98.1 F 76 14 105/63 97 Weight Admit Weight 126 lb 12.8 oz Weight 125 lb 10.616 oz I&O: 09/08/19 09/09/19 09/10/19 06:59 06:59 06:59 Intake Total 1985 1660 Output Total 0898 5428 Balance -430 -232 Result Diagrams: 09/09/19 05:40 09/09/19 05:40 Additional Labs: Accuchecks 09/09/19 09/08/19 18:03 23:41 POC Glucose 163 H 140 H labs and MARs reviewed by wa Hospitalist ROS - Review of Systems Constitutional: reports: other (poor appetite) Cardiovascular: denies: chest pain, palpitations, orthopnea, paroxysmal noc. dyspnea, edema, light headedness Gastrointestinal: denies: nausea, vomiting, abdominal pain, diarrhea, constipation, melena, hematochezia - Medication Medications: Active Medications Generic Name Dose Route Start Last Admin Trade Name Freq PRN Reason Stop Dose Admin Hydrocodone Bitart/Acetaminophen 15 ml 08/31/19 14:31 09/05/19 20:14 Hydrocodone-Apap 7.5-325/15 PO 15 ml Q6H PRN Administration Pain Al Hydroxide/Mg Hydroxide 30 ml 09/01/19 17:32 09/02/19 16:09 Maalox PO 30 ml DAILYPRN PRN Administration Heartburn or Indigestion Amlodipine Besylate 10 mg 09/04/19 09:00 09/09/19 09:11 Norvasc PO Not Given DAILY JANNETH Atenolol 50 mg 08/31/19 09:00 09/09/19 09:12 Tenormin PO Not Given QAM JANNETH Calcium Carbonate 1,000 mg 09/01/19 20:39 09/02/19 19:21 Tums PO 1,000 mg Q4H PRN Administration Heartburn or Indigestion Enoxaparin Sodium 30 mg 08/26/19 09:00 09/09/19 09:12 Lovenox SC 30 mg 0900 JANNETH Administration Hydralazine HCl 5 mg 09/04/19 13:05 09/04/19 13:55 Apresoline SLOW IVP 5 mg Q6H PRN Administration SBP GREATER THAN 160 Fat Emulsion Intravenous 250 2,282.463 mls @ 95.103 mls/hr 09/02/19 22:00 22:02 ml/ Sodium Chloride 20 meq/ IV 2,282.463 mls Potassium Acetate 20 meq/ 2200 JANNETH Administration Magnesium Sulfate 10 meq/ Multivitamins 10 ml/ Chromium/ Copper/Manganese/Seleni/Zn 5 ml/ Amino Acids/Electrolytes Sodium Chloride 1,000 mls @ 70 mls/hr 09/09/19 16:45 09/09/19 16:49 Normal Saline 0.9% IV 1,000 mls .[id number] JANNETH Administration Insulin Human Lispro 0 units 09/03/19 18:08 09/06/19 18:22 Humalog SC 2 units .MILD SLIDING SCALE PRN Administration Mild Correctional Scale Levothyroxine Sodium 150 mcg 08/31/19 06:00 09/09/19 05:27 Synthroid PO Not Given 0600 [facility] Ondansetron HCl 4 mg 08/29/19 13:15 09/09/19 01:21 Zofran IVP 4 mg Q6H PRN Administration Nausea/Vomiting Pantoprazole Sodium 40 mg 09/04/19 09:00 09/09/19 09:12 Protonix IVP 40 mg BID JANNETH Administration Phenol 1 ml 09/04/19 15:56 09/07/19 05:34 Chloraseptic [place] 180 Ml Bot PO 1 spr BIDPRN PRN Administration Sore Throat Promethazine HCl 12.5 mg 08/29/19 13:15 09/08/19 22:52 Phenergan IM 12.5 mg Q4H PRN Administration Nausea/Vomiting Scopolamine 1.5 mg 09/03/19 22:45 09/06/19 22:26 Transderm Scop TOP 1.5 mg Q3D JANNETH Administration Sodium Chloride 10 ml 08/29/19 13:15 09/02/19 08:42 Flush - Normal Saline IVF 10 ml PRN PRN Administration Saline Flush - Exam General Appearance: NAD Eye: anicteric sclera ENT: moist mucosa Neck: supple Heart: RRR Respiratory: CTAB Gastrointestinal: soft Gastrointestinal - other findings: ostomy Skin: no rashes Musculoskeletal: normal tone, normal strength Psychiatric: normal affect, normal behavior Hosp A/P (1) Small bowel obstruction Code(s): K56.609 - UNSP INTESTNL OBST, UNSP TO PARTIAL VERSUS COMPLETE OBST Status: Acute (2) Hypertension Code(s): I10 - ESSENTIAL (PRIMARY) HYPERTENSION Status: Chronic (3) Hypothyroidism Code(s): E03.9 - HYPOTHYROIDISM, UNSPECIFIED Status: Chronic (4) Gastric malignant neoplasm Status: Chronic - Plan plan discussed w/ family, out of bed/ambulate Trial Megace. Kypokalemia resolved. Pt likely to go to SNU tomorrow. HTN controlled. Continue synthroid.
[2019-09-09] MEDS: [UNRECOGNIZED DRUG - OTHER] IV SCH (22:27)
[2019-09-09] MEDS: FAT EMULSION IV SCH (22:27)
[2019-09-09] MEDS: SODIUM CHLORIDE IV SCH (22:27)
[2019-09-09] MEDS: POTASSIUM ACETATE IV SCH (22:27)
[2019-09-10] MEDS: Scopolamine 1.5 mg/72 hour Patch TOP SCH (02:26)
[2019-09-10] MEDS: HumaLOG 300 UNITS/3 ML VIAL SC PRN (02:26)
[2019-09-10] MEDS: Levothyroxine 150 MCG TAB PO SCH (05:41)
[2019-09-10] MEDS: Pantoprazole 40 MG VIAL IVP SCH ×2 (08:31→19:25)
[2019-09-10] MEDS: Megestrol Acetate 800 MG/20 ML UDCUP PO SCH (08:31)
[2019-09-10] MEDS: Enoxaparin Sodium 30 MG/0.3 ML SYRINGE SC SCH (08:31)
[2019-09-10] MEDS: Ondansetron PF 4 MG/2 ML Vial IVP PRN ×2 (08:31→19:25)
[2019-09-10] MEDS: Amlodipine 10 MG TAB PO SCH (08:40)
[2019-09-10] MEDS: Atenolol 50 MG TAB PO SCH (08:40)
[2019-09-10 09:04] LABS: #Eosinphils 0.1 thou/uL (0.0-0.7); #Lymphocytes 0.5 thou/uL (1.20-3.40); #Monocytes 0.7 thou/uL (0.11-0.59); #Neutrophils 14.8 thou/uL (1.40-6.50); %Basophils 0.1 % (0.0-1.0); %Eosinophils 0.4 % (0.0-10.0); %Monocytes 4.3 % (0.0-10.0); %Neutrophils 92.2 % (42.0-75.0); Hemoglobin 8.9 g/dL (12.0-16.0); Mean Corpuscular HGB CONC 33.1 g/dL (32.0-36.0); Mean Corpuscular Hemoglobin 34.5 pg (27.0-31.0); Mean Platelet Volume 8.2 fL (7.4-10.4); Platelet Count 245 thou/uL (130-400); RBC Distribution Width 12.5 % (11.5-14.5); Red Blood Cell (RBC) Count 2.57 mill/uL (4.20-5.40); White Blood Cell (WBC) Count 16.1 thou/uL (4.8-10.8)
[2019-09-10 09:19] LABS: Anion Gap 7 mmol/L (10-20); BUN (Urea Nitrogen) 48 mg/dL (9.8-20.1); Calc. Creatinine Clearance 47 mL/min (70-130); Calcium 7.7 mg/dL (7.8-10.44); Carbon Dioxide 23 mmol/L (23-31); Chloride 102 mmol/L (98-107); Estimated GFR-MDRD 75; Glucose 149 mg/dL (83-110); Potassium 3.6 mmol/L (3.5-5.1); Sodium 128 mmol/L (136-145)
[2019-09-10] MEDS: Sodium Chloride 0.9% 1,000 ML IV SCH (11:19)
--- NOTE | 2019-09-10 11:59 | PRG ---
DATE OF SERVICE: 09/10/2019 SUBJECTIVE: Ms. Issa is having more nausea today. She feels bloated. She is just eating little bits of the full liquid diet. She just came back from a walk. PHYSICAL EXAMINATION: VITAL SIGNS: Stable. Her ostomy output was 900 for the day. She has not vomited. ABDOMEN: Soft, minimally tender, minimally distended with active bowel sounds. She has air and stool in her bag. LABORATORY DATA: Her white cell count is 16, her hemoglobin is 8.9. Her sodium is 128, potassium 3.6, creatinine 0.73. ASSESSMENT: 1. 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 2. She is status post palliative gastrojejunostomy and palliative ascending colostomy. PLAN: She had normal Gastrografin and barium study last week showing that she does empty into her gastrojejunostomy without obstruction. I worried this is more of a functional problem due to her locally invasive recurrent cancer and it may not improve. My recommendation is to be to wean TPN and then she probably is going to end up going to either longterm or inpatient hospice. My expectation for improvement is lower, now that she has not done well over the weekend. We will follow with you. Job ID: [id number]
[2019-09-10 12:51] VITALS: BMI 19.6
[2019-09-10] MEDS: Dronabinol 2.5 MG CAP PO SCH (17:01)
--- NOTE | 2019-09-10 18:37 | PDOC.HOSPP ---
- Subjective Encounter Date: 09/10/19 Encounter Time: 09:20 Subjective: Pt seen for followup re: bowel obstruction. Poor appetite. - Objective Vital Signs & Weight: Vital Signs (12 hours) Temp Pulse Resp BP Pulse Ox 09/10/19 15:22 98.4 F 87 14 117/58 L 97 09/10/19 11:41 97.6 F 96 16 118/71 97 09/10/19 07:31 98 F 77 14 130/72 98 Weight Admit Weight 126 lb 12.8 oz Weight 125 lb 10.616 oz I&O: 09/09/19 09/10/19 09/11/19 06:59 06:59 06:59 Intake Total 1660 4917 Output Total 2525 2200 Balance -212 9812 Result Diagrams: 09/10/19 08:40 09/10/19 08:40 Additional Labs: Accuchecks 09/10/19 09/10/19 09/10/19 18:01 11:38 06:00 POC Glucose 123 H 188 H 122 H 09/10/19 00:22 POC Glucose 157 H Labs and MARs reviewed by co Hospitalist ROS - Review of Systems Constitutional: reports: other (low appetite) Cardiovascular: denies: chest pain, palpitations, orthopnea, paroxysmal noc. dyspnea, edema, light headedness Gastrointestinal: denies: nausea, vomiting, abdominal pain, diarrhea, constipation, melena, hematochezia - Medication Medications: Active Medications Generic Name Dose Route Start Last Admin Trade Name Freq PRN Reason Stop Dose Admin Al Hydroxide/Mg Hydroxide 30 ml 09/01/19 17:32 09/02/19 16:09 Maalox PO 30 ml DAILYPRN PRN Administration Heartburn or Indigestion Amlodipine Besylate 10 mg 09/04/19 09:00 09/10/19 08:40 Norvasc PO Not Given DAILY JANNETH Atenolol 50 mg 08/31/19 09:00 09/10/19 08:40 Tenormin PO Not Given QAM JANNETH Calcium Carbonate 1,000 mg 09/01/19 20:39 09/02/19 19:21 Tums PO 1,000 mg Q4H PRN Administration Heartburn or Indigestion Dronabinol 2.5 mg 09/10/19 16:30 09/10/19 17:01 Marinol PO 2.5 mg BID-AC JANNETH Administration Enoxaparin Sodium 30 mg 08/26/19 09:00 09/10/19 08:31 Lovenox SC 30 mg 0900 [facility] Administration Hydralazine HCl 5 mg 09/04/19 13:05 09/04/19 13:55 Apresoline SLOW IVP 5 mg Q6H PRN Administration SBP GREATER THAN 160 Fat Emulsion Intravenous 250 2,282.463 mls @ 95.103 mls/hr 09/02/19 22:00 22:27 ml/ Sodium Chloride 20 meq/ IV 2,282.463 mls Potassium Acetate 20 meq/ 2200 JANNETH Administration Magnesium Sulfate 10 meq/ Multivitamins 10 ml/ Chromium/ Copper/Manganese/Seleni/Zn 5 ml/ Amino Acids/Electrolytes Sodium Chloride 1,000 mls @ 70 mls/hr 09/09/19 16:45 09/10/19 11:19 Normal Saline 0.9% IV Not Given .[id number] [facility] Insulin Human Lispro 0 units 09/03/19 18:08 09/10/19 02:26 Humalog SC 2 units .MILD SLIDING SCALE PRN Administration Mild Correctional Scale Levothyroxine Sodium 150 mcg 08/31/19 06:00 09/10/19 05:41 Synthroid PO Not Given 0600 [facility] Megestrol Acetate 400 mg 09/10/19 09:00 09/10/19 08:31 Megace PO 400 mg DAILY JANNETH Administration Ondansetron HCl 4 mg 08/29/19 13:15 09/10/19 08:31 Zofran IVP 4 mg Q6H PRN Administration Nausea/Vomiting Pantoprazole Sodium 40 mg 09/04/19 09:00 09/10/19 08:31 Protonix IVP 40 mg BID JANNETH Administration Phenol 1 ml 09/04/19 15:56 09/07/19 05:34 Chloraseptic [place] 180 Ml Bot PO 1 spr BIDPRN PRN Administration Sore Throat Promethazine HCl 12.5 mg 08/29/19 13:15 09/08/19 22:52 Phenergan IM 12.5 mg Q4H PRN Administration Nausea/Vomiting Scopolamine 1.5 mg 09/03/19 22:45 09/10/19 02:26 Transderm Scop TOP 1.5 mg Q3D JANNETH Administration Sodium Chloride 10 ml 08/29/19 13:15 09/02/19 08:42 Flush - Normal Saline IVF 10 ml PRN PRN Administration Saline Flush - Exam General Appearance: NAD Eye: anicteric sclera ENT: moist mucosa Neck: supple, no JVD Heart: RRR Respiratory: CTAB Gastrointestinal: soft, non-distended Gastrointestinal - other findings: ostomy Psychiatric: normal affect, normal behavior Hosp A/P (1) Small bowel obstruction Code(s): K56.609 - UNSP INTESTNL OBST, UNSP TO PARTIAL VERSUS COMPLETE OBST Status: Acute (2) Hypertension Code(s): I10 - ESSENTIAL (PRIMARY) HYPERTENSION Status: Chronic (3) Hypothyroidism Code(s): E03.9 - HYPOTHYROIDISM, UNSPECIFIED Status: Chronic (4) Gastric malignant neoplasm Status: Chronic - Plan out of bed/ambulate Trial marinol. HTN controlled. Continue synthroid. Pt is on TPN.
[2019-09-11] MEDS: Sodium Chloride 0.9% 1,000 ML IV SCH ×2 (01:13→12:27)
[2019-09-11] MEDS: Promethazine HCl 25 MG/ML VIAL IM PRN (01:13)
[2019-09-11] MEDS: Levothyroxine 150 MCG TAB PO SCH (06:38)
[2019-09-11] MEDS: Pantoprazole 40 MG VIAL IVP SCH (08:04)
[2019-09-11] MEDS: Ondansetron PF 4 MG/2 ML Vial IVP PRN (08:04)
[2019-09-11] MEDS: Enoxaparin Sodium 30 MG/0.3 ML SYRINGE SC SCH (08:05)
[2019-09-11] MEDS: Dronabinol 2.5 MG CAP PO SCH ×3 (08:14→16:46)
[2019-09-11] MEDS: Atenolol 50 MG TAB PO SCH (08:14)
[2019-09-11] MEDS: Amlodipine 10 MG TAB PO SCH (08:14)
[2019-09-11] MEDS: Megestrol Acetate 800 MG/20 ML UDCUP PO SCH (08:15)
[2019-09-11 11:30] VITALS: BP 122/73; TEMP 97.8
--- NOTE | 2019-09-11 16:27 | DIS ---
DATE OF ADMISSION: 08/25/2019 DATE OF DISCHARGE: 09/11/2019 PRIMARY CARE PHYSICIAN: Jaden Fowler MD DISCHARGE DIAGNOSES: 1. Bowel obstruction. 2. Hyponatremia. 3. Moderate protein-calorie malnutrition. 4. Hyponatremia. 5. Hypokalemia. CONDITION: Condition of the patient on the day of discharge: Stable. I assessed Ms. Issa on the day of discharge. She reports poor oral intake. She denies any fevers or chills. Vital signs are stable. S1 and S2 are heard, regular. Lungs are clear to auscultation bilaterally. POSTDISCHARGE FOLLOWUP: The patient is advised to follow up with primary care provider. DISCHARGE MEDICATIONS: 1. Atenolol 50 mg daily. 2. Lipitor 10 mg daily. 3. Multivitamins one tablet daily. 4. Plavix 75 mg daily. 5. Synthroid 150 mcg daily. 6. Centrum Silver 1 tablet daily. 7. Amlodipine 10 mg daily. CONSULTATIONS DURING THIS HOSPITALIZATION: 1. General Surgery, Dr. Cooley and Dr. Piña. 2. Gastroenterology, Dr. Pabon. 3. Oncology, Dr. Aden. HOSPITAL COURSE: Ms. Issa is a pleasant 89-year-old lady, who was admitted to [facility] on August 25, 2019, for bowel obstruction. Please refer to Dr. Lutz's history and physical note dated August 25, 2019, for further details. She was seen by General Surgery and Gastroenterology Services. On August 26, she underwent colonoscopy. She was found to have swelling with narrowing of colonic lumen suggestive of extrinsic compression. EGD on August 27 showed submucosal edema of anastomosis to gastrojejunostomy. On August 28, Dr. Piña recommended laparotomy, gastrojejunostomy with probable colostomy or ileostomy. On August 29, she underwent exploratory laparotomy with loop gastrojejunostomy and loop ascending colostomy as palliative measures. Peritoneal implant biopsy showed metastatic adenocarcinoma. The patient continued to decline, with abdominal pain, vomiting and poor oral intake. She was started on TPN. Barium swallow on September 07 did not show any evidence of gastric outlet obstruction. The patient continued to do poorly in terms of oral intake. General Surgery Service recommended hospice care. The patient is being discharged home for hospice care at home. Many thanks for allowing me to participate in your patient's care. Please feel free to contact me with any questions or concerns. DISCHARGE DESTINATION: For hospice care at home. TIME SPENT: Total amount of time spent in coordinating this discharge: 32 minutes. Job ID: [id number]
== END 2019-09-11 17:58 | disposition hospice, home (50) | DRG 327 ==
LOC: ERS 09:39 → ERHOLD 15:39 → 2NO 18:37 → SURG A 08-28 20:56
PROVIDERS: ADMIT Internal Medicine; ATTEND Internal Medicine
PROC: 0DJD8ZZ Inspection of Lower Intestinal Tract, Via Natural or Artificial Opening Endoscopic (ICD-10-PCS; 2019-08-26)
PROC: 3E02340 Introduction of Influenza Vaccine into Muscle, Percutaneous Approach (ICD-10-PCS; 2019-08-26)
PROC: 0DJ08ZZ Inspection of Upper Intestinal Tract, Via Natural or Artificial Opening Endoscopic (ICD-10-PCS; 2019-08-27)
PROC: 0DH683Z Insertion of Infusion Device into Stomach, Via Natural or Artificial Opening Endoscopic (ICD-10-PCS; 2019-08-27)
PROC: 0D160ZA Bypass Stomach to Jejunum, Open Approach (ICD-10-PCS; principal; 2019-08-29)
PROC: 0D1K0Z4 Bypass Ascending Colon to Cutaneous, Open Approach (ICD-10-PCS; 2019-08-29)
PROC: 3E0336Z Introduction of Nutritional Substance into Peripheral Vein, Percutaneous Approach (ICD-10-PCS; 2019-09-02)
DX: C16.9 Malignant neoplasm of stomach, unspecified (principal); E87.1 Hypo-osmolality and hyponatremia; K56.7 Ileus, unspecified; Z68.1 Body mass index [BMI] 19.9 or less, adult; E44.0 Moderate protein-calorie malnutrition; C78.5 Secondary malignant neoplasm of large intestine and rectum; Z66 Do not resuscitate; Z23 Encounter for immunization; K57.30 Diverticulosis of large intestine without perforation or abscess without bleeding; E03.9 Hypothyroidism, unspecified; E78.5 Hyperlipidemia, unspecified; E86.0 Dehydration; I10 Essential (primary) hypertension; E87.6 Hypokalemia; Z95.2 Presence of prosthetic heart valve; Z88.5 Allergy status to narcotic agent; Z79.899 Other long term (current) drug therapy; Z85.89 Personal history of malignant neoplasm of other organs and systems; Z90.49 Acquired absence of other specified parts of digestive tract
CPT/HCPCS: 36415; 36416; 74018; 74177; 74220; 74250; 80048; 80053; 82553; 83690; 83735; 84100; 84484; 85025; 88305; 93005; 96361; 96374; C9113; J0131; J0360; J0670; J0694; J1642; J1650; J2001; J2250; J2270; J2405; J2550; J2704; J3010; J3475; J3480; J3490; J7042; J7050; P9045; Q0167; Q9963; Q9966; Q9967; S0028